=== PATIENT | female | born 1965 | race Caucasian/White ===

== ENCOUNTER 2020-08-20 14:24 | Outpatient (CLI) | payer MEDICAID, SELFPAY | END 2020-08-20 14:25 | disposition home or self-care (01) | PROVIDERS: Family Provider Nurse Practitioner Family; Visit Provider Nurse Practitioner Family | DX: E11.622 Type 2 diabetes mellitus with other skin ulcer (principal); L97.812 Non-pressure chronic ulcer of other part of right lower leg with fat layer exposed; L97.822 Non-pressure chronic ulcer of other part of left lower leg with fat layer exposed | CPT/HCPCS: 11042; 87070; 87077; 87176; 87186; 87205 ==

== ENCOUNTER 2020-08-27 09:53 | Outpatient (CLI) | payer MEDICAID, SELFPAY | END 2020-08-27 09:54 | disposition home or self-care (01) | LOC: WOUND 09:53 | PROVIDERS: Visit Provider Nurse Practitioner Family | DX: E11.622 Type 2 diabetes mellitus with other skin ulcer (principal); L97.812 Non-pressure chronic ulcer of other part of right lower leg with fat layer exposed; L97.822 Non-pressure chronic ulcer of other part of left lower leg with fat layer exposed | CPT/HCPCS: 11042 ==

== ENCOUNTER 2020-09-03 09:25 | Outpatient (CLI) | payer MEDICAID, SELFPAY | END 2020-09-03 09:26 | disposition home or self-care (01) | LOC: WOUND 09:25 | PROVIDERS: Visit Provider Nurse Practitioner Family | DX: E11.622 Type 2 diabetes mellitus with other skin ulcer (principal); L97.812 Non-pressure chronic ulcer of other part of right lower leg with fat layer exposed; L97.822 Non-pressure chronic ulcer of other part of left lower leg with fat layer exposed | CPT/HCPCS: 11042 ==

== ENCOUNTER 2020-09-10 09:21 | Outpatient (CLI) | payer MEDICAID, SELFPAY | END 2020-09-10 09:22 | disposition home or self-care (01) | LOC: WOUND 09:22 | PROVIDERS: Visit Provider Nurse Practitioner Family | DX: E11.622 Type 2 diabetes mellitus with other skin ulcer (principal); L97.812 Non-pressure chronic ulcer of other part of right lower leg with fat layer exposed; L97.822 Non-pressure chronic ulcer of other part of left lower leg with fat layer exposed | CPT/HCPCS: 11042 ==

== ENCOUNTER 2020-09-10 10:32 | Outpatient (CLI) | payer MEDICAID, SELFPAY ==
--- NOTE | 2020-09-10 10:36 | USCV_ITS ---
Evangelina Velázquez Age: 54 Gender: F : 1965 Exam Date: 09/10/2020 10:58 Ordering Phys: Anu Richmond Technologist: Mello Garcia [place]am [place] [facility] [place]: HISTORY: Ulcers. PROCEDURES: Bilateral duplex Venous Insufficiency study of the Deep and Superficial systems was carried out according to normal protocol with the patient in supine positon for deep system and dependent position for the superficial system. FINDINGS: All deep veins demonstrated compressibility without evidence of intraluminal thrombus or increased echogenicity. Spectral analysis of Doppler signals demonstrates normal response to compression maneuvers indicating patency without obstruction. Reflux determinations were made with the patient in the dependent position, the weight being on the contralateral leg. Vein measurements and reflux times are listed below were applicable. SIGNIFICANT REFLUX IN BOTH LEGS. THIS PT IS NOT A GOOD CANADATE FOR ABLATION DOTO TOUCHOUS GSAPH VEINS CONCLUSIONS 1. On the right side significant venous reflux of greater than 500 ms were noted throughout the greater saphenous vein segments including the saphenofemoral junction . These venous segments were measuring anywhere from 0.39 to 1.01 cm in diameter and greater than 1 cm deep from the surface. However they were found to be very tortuous 2. On the left side significant venous reflux of greater than 500 ms were noted at the saphenofemoral junction, proximal and below-knee greater saphenous vein segments. These venous segments where measuring anywhere from 0.42 to 0.55 cm in diameter and greater than 1 cm of deep from the surface. Vein segments were found to be very tortuous. 3. No evidence of deep vein thrombosis. Because of the tortuosity the venous segments may not be ideal for ablation Dr Colette Garcia MD [facility] (Electronically Signed) Final Date: 11 September 2020 08:54 S
== END 2020-09-10 10:33 | disposition home or self-care (01) ==
LOC: US 10:33
PROVIDERS: PCP Family Medicine; Visit Provider Nurse Practitioner Family
DX: M79.604 Pain in right leg (principal); M79.605 Pain in left leg; L53.9 Erythematous condition, unspecified; L97.929 Non-pressure chronic ulcer of unspecified part of left lower leg with unspecified severity; L97.919 Non-pressure chronic ulcer of unspecified part of right lower leg with unspecified severity
CPT/HCPCS: 93970

== ENCOUNTER 2020-09-12 14:09 | Outpatient (CLI) | payer MEDICAID, SELFPAY ==
--- NOTE | 2020-09-12 14:11 | USCV_ITS ---
Evangelina Velázquez Age: 54 Gender: F : 1965 Exam Date: 09/12/2020 14:01 Ordering Phys: Anu Richmond Technologist: Karsten Pabon [place] [facility] [place]: PAIN REDNESS NON HEALING ULCER RIGHT LEFT Brachial 159.00 mmHg Brachial 180.00 mmHg Pressure (mmHg) Waveform Pressure (mmHg) Waveform 73.00 Pre-Exercise Toe Pressure 93.00 0.41 Pre-Exercise Toe/Brachial Index 0.52 FINDINGS Noncompressible arteries bilaterally at the angle Abnormal resting SEGUN bilaterally PVR waveforms showing blunting of the dicrotic notch PVR waveforms at the ankle is a suboptimal quality CONCLUSIONS 1. Features suggestive of mild to moderate peripheral artery disease bilaterally. 2. Noncompressible vessels, suggestive of extensive arterial sclerosis Dr Colette Garcia MD [facility] (Electronically Signed) Final Date: 12 September 2020 21:20 S
== END 2020-09-12 14:10 | disposition home or self-care (01) ==
LOC: US 14:09
PROVIDERS: PCP Family Medicine; Visit Provider Nurse Practitioner Family
DX: M79.604 Pain in right leg (principal); M79.605 Pain in left leg; L53.9 Erythematous condition, unspecified; L97.829 Non-pressure chronic ulcer of other part of left lower leg with unspecified severity; L97.819 Non-pressure chronic ulcer of other part of right lower leg with unspecified severity
CPT/HCPCS: 93923

== ENCOUNTER 2020-09-17 09:08 | Outpatient (CLI) | payer MEDICAID, SELFPAY | END 2020-09-17 09:09 | disposition home or self-care (01) | LOC: WOUND 09:08 | PROVIDERS: PCP Family Medicine; Visit Provider Nurse Practitioner Family | DX: E11.622 Type 2 diabetes mellitus with other skin ulcer (principal); L97.812 Non-pressure chronic ulcer of other part of right lower leg with fat layer exposed; L97.822 Non-pressure chronic ulcer of other part of left lower leg with fat layer exposed | CPT/HCPCS: 11042 ==

== ENCOUNTER 2020-09-20 14:11 | Outpatient (CLI) | payer MEDICAID, SELFPAY | END 2020-09-20 14:12 | disposition home or self-care (01) | LOC: WOUND 14:12 | PROVIDERS: PCP Family Medicine; Visit Provider Thoracic Surgery (Cardiothoracic Vascular Surgery) | DX: E11.622 Type 2 diabetes mellitus with other skin ulcer (principal); L97.812 Non-pressure chronic ulcer of other part of right lower leg with fat layer exposed; L97.822 Non-pressure chronic ulcer of other part of left lower leg with fat layer exposed | CPT/HCPCS: 29581 ==

== ENCOUNTER 2020-09-24 09:21 | Outpatient (CLI) | payer MEDICAID, SELFPAY | END 2020-09-24 09:22 | disposition home or self-care (01) | LOC: WOUND 09:21 | PROVIDERS: PCP Family Medicine; Visit Provider Nurse Practitioner Family | DX: E11.622 Type 2 diabetes mellitus with other skin ulcer (principal); L97.812 Non-pressure chronic ulcer of other part of right lower leg with fat layer exposed; L97.822 Non-pressure chronic ulcer of other part of left lower leg with fat layer exposed | CPT/HCPCS: 11042 ==

== ENCOUNTER 2020-10-01 08:54 | Outpatient (CLI) | payer MEDICAID, SELFPAY | END 2020-10-01 08:55 | disposition home or self-care (01) | LOC: WOUND 08:54 | PROVIDERS: PCP Family Medicine; Visit Provider Nurse Practitioner Family | DX: E11.622 Type 2 diabetes mellitus with other skin ulcer (principal); L97.812 Non-pressure chronic ulcer of other part of right lower leg with fat layer exposed; L97.822 Non-pressure chronic ulcer of other part of left lower leg with fat layer exposed | CPT/HCPCS: 11042 ==

== ENCOUNTER 2020-10-08 09:19 | Outpatient (CLI) | payer MEDICAID, SELFPAY | END 2020-10-08 09:20 | disposition home or self-care (01) | LOC: WOUND 09:21 | PROVIDERS: PCP Family Medicine; Visit Provider Nurse Practitioner Family | DX: E11.622 Type 2 diabetes mellitus with other skin ulcer (principal); L97.812 Non-pressure chronic ulcer of other part of right lower leg with fat layer exposed; L97.821 Non-pressure chronic ulcer of other part of left lower leg limited to breakdown of skin | CPT/HCPCS: 11042 ==

== ENCOUNTER 2020-10-15 08:32 | Outpatient (CLI) | payer MEDICAID, SELFPAY | END 2020-10-15 08:33 | disposition home or self-care (01) | LOC: WOUND 08:33 | PROVIDERS: PCP Family Medicine; Visit Provider Nurse Practitioner Family | DX: E11.622 Type 2 diabetes mellitus with other skin ulcer (principal); L97.812 Non-pressure chronic ulcer of other part of right lower leg with fat layer exposed; L97.821 Non-pressure chronic ulcer of other part of left lower leg limited to breakdown of skin | CPT/HCPCS: 11042 ==

== ENCOUNTER 2020-10-22 09:03 | Outpatient (CLI) | payer MEDICAID, SELFPAY | END 2020-10-22 09:04 | disposition home or self-care (01) | LOC: WOUND 09:03 | PROVIDERS: PCP Family Medicine; Visit Provider Nurse Practitioner Family | DX: E11.622 Type 2 diabetes mellitus with other skin ulcer (principal); L97.812 Non-pressure chronic ulcer of other part of right lower leg with fat layer exposed; L97.821 Non-pressure chronic ulcer of other part of left lower leg limited to breakdown of skin | CPT/HCPCS: 11042 ==

== ENCOUNTER 2020-10-29 09:16 | Outpatient (CLI) | payer MEDICAID, SELFPAY | END 2020-10-29 09:17 | disposition home or self-care (01) | LOC: WOUND 09:17 | PROVIDERS: PCP Family Medicine; Visit Provider Nurse Practitioner Family | DX: E11.622 Type 2 diabetes mellitus with other skin ulcer (principal); L97.812 Non-pressure chronic ulcer of other part of right lower leg with fat layer exposed | CPT/HCPCS: 11042 ==

== ENCOUNTER 2020-11-05 09:12 | Outpatient (CLI) | payer MEDICAID, SELFPAY | END 2020-11-05 09:13 | disposition home or self-care (01) | LOC: WOUND 09:12 | PROVIDERS: PCP Family Medicine; Visit Provider Nurse Practitioner Family | DX: E11.622 Type 2 diabetes mellitus with other skin ulcer (principal); L97.812 Non-pressure chronic ulcer of other part of right lower leg with fat layer exposed | CPT/HCPCS: 11042 ==

== ENCOUNTER 2020-11-12 09:49 | Outpatient (CLI) | payer MEDICAID, SELFPAY | END 2020-11-12 09:50 | disposition home or self-care (01) | LOC: WOUND 09:49 | PROVIDERS: PCP Family Medicine; Visit Provider Nurse Practitioner Family | DX: E11.622 Type 2 diabetes mellitus with other skin ulcer (principal); L97.811 Non-pressure chronic ulcer of other part of right lower leg limited to breakdown of skin; L97.821 Non-pressure chronic ulcer of other part of left lower leg limited to breakdown of skin | CPT/HCPCS: 11042 ==

== ENCOUNTER 2020-11-19 09:14 | Outpatient (CLI) | payer MEDICAID, SELFPAY | END 2020-11-19 09:15 | disposition home or self-care (01) | LOC: WOUND 09:15 | PROVIDERS: PCP Family Medicine; Visit Provider Nurse Practitioner Family | DX: E11.622 Type 2 diabetes mellitus with other skin ulcer (principal); L97.812 Non-pressure chronic ulcer of other part of right lower leg with fat layer exposed; L97.822 Non-pressure chronic ulcer of other part of left lower leg with fat layer exposed | CPT/HCPCS: 11042 ==

== ENCOUNTER 2020-11-26 09:34 | Outpatient (CLI) | payer MEDICAID, SELFPAY | END 2020-11-26 09:35 | disposition home or self-care (01) | LOC: WOUND 09:35 | PROVIDERS: PCP Family Medicine; Visit Provider Nurse Practitioner Family | DX: E11.622 Type 2 diabetes mellitus with other skin ulcer (principal); L97.812 Non-pressure chronic ulcer of other part of right lower leg with fat layer exposed; L97.822 Non-pressure chronic ulcer of other part of left lower leg with fat layer exposed | CPT/HCPCS: 11042 ==

== ENCOUNTER 2020-12-03 09:24 | Outpatient (CLI) | payer MEDICAID, SELFPAY | END 2020-12-03 09:25 | disposition home or self-care (01) | LOC: WOUND 09:25 | PROVIDERS: Visit Provider Nurse Practitioner Family | DX: E11.622 Type 2 diabetes mellitus with other skin ulcer (principal); L97.812 Non-pressure chronic ulcer of other part of right lower leg with fat layer exposed; L97.822 Non-pressure chronic ulcer of other part of left lower leg with fat layer exposed | CPT/HCPCS: 11042 ==

== ENCOUNTER 2020-12-05 13:08 | Outpatient (CLI) | payer MEDICAID, SELFPAY | END 2020-12-05 13:09 | disposition home or self-care (01) | LOC: WOUND 13:09 | PROVIDERS: PCP Family Medicine; Visit Provider Thoracic Surgery (Cardiothoracic Vascular Surgery) | DX: E11.622 Type 2 diabetes mellitus with other skin ulcer (principal); I87.2 Venous insufficiency (chronic) (peripheral); L97.812 Non-pressure chronic ulcer of other part of right lower leg with fat layer exposed; L97.822 Non-pressure chronic ulcer of other part of left lower leg with fat layer exposed | CPT/HCPCS: 29581 ==

== ENCOUNTER 2020-12-10 09:33 | Outpatient (CLI) | payer MEDICAID, SELFPAY | END 2020-12-10 09:34 | disposition home or self-care (01) | LOC: WOUND 09:34 | PROVIDERS: PCP Family Medicine; Visit Provider Nurse Practitioner Family | DX: E11.622 Type 2 diabetes mellitus with other skin ulcer (principal); L97.812 Non-pressure chronic ulcer of other part of right lower leg with fat layer exposed; L97.822 Non-pressure chronic ulcer of other part of left lower leg with fat layer exposed | CPT/HCPCS: 11042; 15275; Q4186 ==

== ENCOUNTER 2020-12-17 08:52 | Outpatient (CLI) | payer MEDICAID, SELFPAY | END 2020-12-17 08:53 | disposition home or self-care (01) | LOC: WOUND 08:53 | PROVIDERS: PCP Family Medicine; Visit Provider Nurse Practitioner Family | DX: E11.622 Type 2 diabetes mellitus with other skin ulcer (principal); L97.812 Non-pressure chronic ulcer of other part of right lower leg with fat layer exposed; L97.822 Non-pressure chronic ulcer of other part of left lower leg with fat layer exposed | CPT/HCPCS: 11042; 15275; Q4186 ==

== ENCOUNTER 2020-12-24 09:15 | Outpatient (CLI) | payer MEDICAID, SELFPAY | END 2020-12-24 09:16 | disposition home or self-care (01) | LOC: WOUND 09:15 | PROVIDERS: PCP Family Medicine; Visit Provider Nurse Practitioner Family | DX: E11.622 Type 2 diabetes mellitus with other skin ulcer (principal); L97.812 Non-pressure chronic ulcer of other part of right lower leg with fat layer exposed; L97.822 Non-pressure chronic ulcer of other part of left lower leg with fat layer exposed | CPT/HCPCS: 11042 ==

== ENCOUNTER 2020-12-31 09:01 | Outpatient (CLI) | payer MEDICAID, SELFPAY | END 2020-12-31 09:02 | disposition home or self-care (01) | LOC: WOUND 09:01 | PROVIDERS: PCP Family Medicine; Visit Provider Nurse Practitioner Family | DX: E11.622 Type 2 diabetes mellitus with other skin ulcer (principal); L97.812 Non-pressure chronic ulcer of other part of right lower leg with fat layer exposed; L97.822 Non-pressure chronic ulcer of other part of left lower leg with fat layer exposed | CPT/HCPCS: 11042; 15271; Q4186 ==

== ENCOUNTER 2021-01-21 09:05 | Outpatient (CLI) | payer MEDICAID, SELFPAY | END 2021-01-21 09:06 | disposition home or self-care (01) | LOC: WOUND 09:07 | PROVIDERS: PCP Family Medicine; Visit Provider Nurse Practitioner Family | DX: E11.622 Type 2 diabetes mellitus with other skin ulcer (principal); L97.812 Non-pressure chronic ulcer of other part of right lower leg with fat layer exposed; L97.822 Non-pressure chronic ulcer of other part of left lower leg with fat layer exposed | CPT/HCPCS: 11042 ==

== ENCOUNTER 2021-01-28 08:20 | Outpatient (CLI) | payer MEDICAID, SELFPAY | END 2021-01-28 08:21 | disposition home or self-care (01) | LOC: WOUND 08:20 | PROVIDERS: PCP Family Medicine; Visit Provider Nurse Practitioner Family | DX: E11.622 Type 2 diabetes mellitus with other skin ulcer (principal); L97.812 Non-pressure chronic ulcer of other part of right lower leg with fat layer exposed; L97.822 Non-pressure chronic ulcer of other part of left lower leg with fat layer exposed | CPT/HCPCS: 11042 ==

== ENCOUNTER 2021-02-04 08:36 | Outpatient (CLI) | payer MEDICAID, SELFPAY | END 2021-02-04 08:37 | disposition home or self-care (01) | LOC: WOUND 08:37 | PROVIDERS: PCP Family Medicine; Visit Provider Nurse Practitioner Family | DX: E11.622 Type 2 diabetes mellitus with other skin ulcer (principal); L97.812 Non-pressure chronic ulcer of other part of right lower leg with fat layer exposed; L97.822 Non-pressure chronic ulcer of other part of left lower leg with fat layer exposed | CPT/HCPCS: 11042 ==

== ENCOUNTER 2021-02-07 08:05 | Outpatient (CLI) | payer MEDICAID, SELFPAY | END 2021-02-07 08:06 | disposition home or self-care (01) | LOC: WOUND 08:06 | PROVIDERS: PCP Family Medicine; Visit Provider Nurse Practitioner Family | DX: E11.622 Type 2 diabetes mellitus with other skin ulcer (principal); L97.812 Non-pressure chronic ulcer of other part of right lower leg with fat layer exposed; L97.822 Non-pressure chronic ulcer of other part of left lower leg with fat layer exposed | CPT/HCPCS: 29581 ==

== ENCOUNTER 2021-02-11 08:22 | Outpatient (CLI) | payer MEDICAID, SELFPAY | END 2021-02-11 08:23 | disposition home or self-care (01) | LOC: WOUND 08:23 | PROVIDERS: PCP Family Medicine; Visit Provider Nurse Practitioner Family | DX: E11.622 Type 2 diabetes mellitus with other skin ulcer (principal); L97.812 Non-pressure chronic ulcer of other part of right lower leg with fat layer exposed; L97.822 Non-pressure chronic ulcer of other part of left lower leg with fat layer exposed | CPT/HCPCS: 97597 ==

== ENCOUNTER → 2021-02-14 10:51 | Outpatient (BNVA) | payer MEDICAID, SELFPAY | PROVIDERS: PCP Family Medicine; Visit Provider Internal Medicine Cardiovascular Disease | DX: I77.9 Disorder of arteries and arterioles, unspecified (principal); Z20.822 Contact with and (suspected) exposure to COVID-19 | CPT/HCPCS: 80048; 85025; 85610; 87635 ==

== ENCOUNTER 2021-02-18 08:47 | Outpatient (CLI) | payer MEDICAID, SELFPAY | END 2021-02-18 08:48 | disposition home or self-care (01) | LOC: WOUND 08:52 | PROVIDERS: PCP Family Medicine; Visit Provider Nurse Practitioner Family | DX: E11.622 Type 2 diabetes mellitus with other skin ulcer (principal); L97.812 Non-pressure chronic ulcer of other part of right lower leg with fat layer exposed; L97.822 Non-pressure chronic ulcer of other part of left lower leg with fat layer exposed ==

== ENCOUNTER 2021-02-18 08:58 | Outpatient (CLI) | payer MEDICAID, SELFPAY | END 2021-02-18 08:59 | disposition home or self-care (01) | LOC: WOUND 08:59 | PROVIDERS: PCP Family Medicine; Visit Provider Nurse Practitioner Family | DX: E11.622 Type 2 diabetes mellitus with other skin ulcer (principal); L97.812 Non-pressure chronic ulcer of other part of right lower leg with fat layer exposed; L97.822 Non-pressure chronic ulcer of other part of left lower leg with fat layer exposed | CPT/HCPCS: 11042 ==

== ENCOUNTER 2021-02-19 09:21 | Observation (INO) | payer MEDICAID, SELFPAY ==
[2021-02-19] VITALS (13 sets, daily range): BP systolic 117–154; BP diastolic 57–114; PULSE 69–90; RESP 10–18; TEMP 36.6; O2SAT 86–100; BMI 70.4
--- NOTE | 2021-02-19 06:00 | XACV_ITS ---
Wt: 175 kg BSA: 2.90 m2 Any Known Allergies: Other Gender: Female : 1965 Exam Type: Invasive Peripheral Vascular Procedure(s): Procedure Description: Peripheral Cath Diagnostic Procedure Exam Priority: Routine Conclusions Indication for peripheral angiogram: Lifestyle limiting claudicationAbdominal aortic angiogram: NormalRight renal artery: NormalLeft renal artery not well visualized due to insufficient injectionRight and left common iliac vessels: NormalRight and left external and internal iliac vessels: NormalRight and left common femoral artery: NormalRight and left profundofemoral artery: Normal Right and left SFA: Normal Right and left popliteal artries: NormalRight and left tibioperoneal trunk: NormalRight and left anterior tibial vessel no significant stenosis except distal anterior tibial and the right foot while making the arch vessel has eccentric lesion which is moderate but since it has a dual supply it may not affect much therefore left aloneRight and left posterior tibial arteries normalRight and left peroneal arteries luminal irregularities . Recommendations Continue current medical management and risk factor modification. Follow up with PCP as directed. Hemodynamic Data Phase:Rest AO : 175.0 / 73.0 ( 112.0 ) @ 2:48:00 AM Access Site Site: Left Femoral artery Sheath Size: 6 Fr Hemost... Method: Manual Compression Hemost... Success: Successful Procedure Details Findings Procedure Consent Obtained. Pre-Procedure Time Out. Identified patient by full name and date of as verbalized by the patient/guarantor. Does the consent match the physician's order: Yes. Accurate & Complete Informed Consent: Yes. Inpatient/Outpatient History & Physical on Chart: Yes. If H&P is completed, is and addenduem needed: No; If yes, is the addendum complete: N/A. Visualize and Verify Site with Patient/Guarantor: N/A. Relevant Radiology Images available: N/A. Pre-op teaching completed and patient verbalized understanding. The risks, benefits, and alternatives of sedation and/or procedure were discussed by physician. The patient agrees to continue. Procedure started. Correct patient, site and procedure confirmed by cath team. PERRLA. Strong, equal hand lathe spotter bilaterally. Lungs clear x 5 lobes. Lower extremities have wraps from wound clinic. Bandages were left intact. Unable to assess pulses. IV Site on Arrival: 20 gauge in the right anticubital. Oxygen started at 2liters/min via nasal canula. Pre Procedural Pulses: bilateral radial was 3+. bilateral groins was prepped with chloroprep then draped in the usual sterile fashion. Baseline sample Acquired. HR: 71 BPM. Equipment: Peripheral. Cardiac Cath Pack. ACIST Manifold Kit Model BT 2000. Heparinized Saline (2 units/mL), 1000 mL bag. Physician arrived. Physician scrubbed in. Time out performed with cath team. Lidocaine 1% infiltrated to the left groin. Arterial access obtained with micropuncture set. Inventory is JJ 6F 11cm Teri Plus Sheath. A Eggs OvernightIS 5F UF catheter 65cm was advanced over the wire and used for Lower extremity arteriography. Abdominal aortogram performed in AP @ 10 mL/sec for a total of 30 mL. UF catheter removed over the glidewire. A JJ 5F RIM 65 cm Diagnostic Catheter was advanced over the wire and used for Lower extremity arteriography. Glidewire advanced down the right SFA. RIM advanced the the right exertnal Iliac artery. Glidewire removed. Right external iliac selected and arteriogram with runoff performed @ 10 mL/sec for a total of 30 mL. Right external iliac selected digital subtraction arteriogram with runoff performed @ 10 mL/sec for a total of 30 mL. Right external iliac selected and Digital subtraction arteriogram with runoff performed @ 10 mL/sec for a total of 30 mL. Catheter removed over the glidewire. Left common femoral selected and arteriogram performed at 10 ml/sec for a total of 30 ml. Physican review of film. Physician scrubbed out. A Manual Compression was successful obtaining hemostatsis at the Left Femoral artery insertion site. Post Procedure: Pulses reassessed and unchanged. PERRLA. Strong, equal hand lathe spotter bilaterally. No VTE prophylaxis required. Medication's Wasted: Heparin = 4000 units. Total IV fluids: 75 mL. Fluoro: 3:06. Contrast type used: Omnipaque 300 mgI/mL, 500 mL bottle. [id number]. Post-op diagnosis: Normal Arteries. Complications: none. Estimated blood loss: 5mL-10mL. Sheath(s) removed and manual pressure held until hemostasis was achieved. Sterile 4x4 and Op-site applied to the puncture site. No oozing or hematoma noted. Post sheath removal instructions were given and the patient verbalized understanding. Procedure completed. Patient transferred by bed to ICU. Vital chart was stopped. Procedure Medications Start: 7:18 AM Stop: 7:18 AM Medication: Versed Amount: 1 mg Route: I.V. Start: 7:18 AM Stop: 7:18 AM Medication: Fentanyl Amount: 25 mcg Route: I.V. Start: 7:27 AM Stop: 7:27 AM Medication: Versed Amount: 1 mg Route: I.V. Start: 7:27 AM Stop: 7:27 AM Medication: Fentanyl Amount: 25 mcg Route: I.V. Start: 7:34 AM Stop: 7:34 AM Medication: Versed Amount: 1 mg Route: I.V. Start: 7:34 AM Stop: 7:34 AM Medication: Fentanyl Amount: 25 mcg Route: I.V. Start: 7:48 AM Stop: 7:48 AM Medication: Versed Amount: 1 mg Route: I.V. Start: 7:48 AM Stop: 7:48 AM Medication: Fentanyl Amount: 25 mcg Route: I.V. I, the attending physician, have reviewed and verified all procedure medications. Yes, all medications given per verbal order History/Risk Factors Hypertension: Yes Dyslipidemia: No Peripheral Arterial Disease (PAD): Yes Obesity: Yes Renal Disease: No Prior Interventions PCI: No CABG: No Valve Surgery: No Report Signatures Finalized by Rivka Morales MD on 03/02/2021 02:47 PM
--- NOTE | 2021-02-19 07:00 | PC.NURSE ---
pulses bilateral radial pulses 3. dp and pt pulses not assessed due to fresh woundcare bilaterally wraped legs from mid calf down.
[2021-02-19] MEDS: diphenhydrAMINE 50 mg Capsule PO (07:03)
--- NOTE | 2021-02-19 07:09 | P.HP_ITS ---
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 It is the reason patient is here for peripheral angiogram. Her ulcers appear to be more venous. She is morbidly obese SEGUN could be misleading however symptoms of claudication upon walking may require further exploration with peripheral angiogram. I have explained all risk benefit and alternative for the procedure. Patient understand the risk for major minor bleed, hematoma, infection, urgent emergent surgery, contrast-induced nephropathy, transient permanent renal failure. She does not wish to use drug-coated balloon when she was explained FDA warning about the drug-coated balloon. She wishes to proceed with the rest of procedure. Medications/Allergies* Home Medications Medication Instructions Recorded Confirmed Type acetaminophen 300 mg-codeine 30 mg 1 tab PO Q8H PRN 12/04/20 02/18/21 History tablet acetazolamide 250 mg tablet 250 mg PO .every other day tab 12/04/20 02/18/21 History albuterol sulfate 90 mcg/actuation 2 puff INHALATION Q6H PRN 12/04/20 02/18/21 History aerosol inhaler cetirizine 10 mg tablet 10 mg PO DAILY 12/04/20 02/18/21 History fluticasone 250 mcg-salmeterol 50 1 inh INHALATION BID 12/04/20 02/18/21 History mcg/dose blistr powdr for inhalation insulin glargine 100 unit/mL (3 80 unit SUBCUT QAM ml 12/04/20 02/18/21 History mL) subcutaneous pen insulin lispro 100 unit/mL 27 unit SUBCUT TID ml 12/04/20 02/18/21 History subcutaneous pen linezolid 600 mg tablet 600 mg PO BID 12/04/20 02/18/21 History lisinopril 20 mg tablet 20 mg PO DAILY 12/04/20 02/18/21 History meloxicam 7.5 mg tablet 7.5 mg PO BID PRN tab 12/04/20 02/18/21 History montelukast 10 mg tablet 10 mg PO DAILY 12/04/20 02/18/21 History omeprazole 20 mg capsule,delayed 20 mg PO BID 12/04/20 02/18/21 History release pentoxifylline 400 mg 400 mg PO DAILY tab 12/04/20 02/18/21 History tablet,extended release vitamin with calcium 1 tab PO DAILY 12/04/20 02/18/21 History no.72-iron 27 mg-folic acid 1 mg tablet aspirin 81 mg PO BID 02/19/21 02/19/21 History Allergies/Adverse Reactions Allergy/AdvReac Type Severity Reaction Status Date / Time diphth,pert(acell),tetan,polio Allergy Unknown Unknown Verified 12/04/20 08:44 vacc,component 1of2 [From Pentacel DTaP-IPV Compnt (PF)] Penicillins Allergy Unknown Unknown Verified 12/04/20 08:44 Current Medications: Generic Name Dose Route Start Last Admin Trade Name Freq PRN Reason Stop Dose Admin Sodium Chloride 1,000 mls @ 50 mls/hr 02/19/21 06:00 02/19/21 07:03 Sodium Chloride 0.9% IV 02/20/21 01:59 Not Given .Q20H ONE Pertinent History/Comorbid Conditions* Medical History (Updated 12/08/20 @ 16:00 by Rivka Morales MD) HTN (hypertension) Peripheral arterial occlusive disease Venous insufficiency (chronic) (peripheral) Family History (Updated 12/04/20 @ 08:45 by Brie Kern LPN) Diabetes Father Heart disease Father Chronic kidney disease (CKD) Seizures Hypertension Stroke Father Social History Smoking and tobacco status: current every day smoker cigarettes Packs smoked per day: 10 Years cigarettes smoked: 15 Pertinent Exam Findings alert, oriented x 3 and clear to auscultation bilaterally Conscious Sedation Assessment PATIENT ASSESSED PRIOR TO SEDATION, WITH NO CHANGE NOTED: Yes AIRWAY EVAL/ANESTHESIA PLAN: ASA III, Risks, benefits & alternatives of sedation and/or procedure discussed and Patient agrees to continue as planned Recommendations Surgery/Procedure today Coding Level of Care Code 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
[2021-02-19 07:16] LABS: Basophils # 0.1 10^3/uL (0.0-0.1); Basophils % 1.3 %; Eosinophils # 0.2 10^3/uL (0.0-0.8); Hematocrit 48.5 % (37.0-47.0); Hemoglobin 14.8 g/dL (11.5-15.3); Lymphocytes # 2.3 10^3/uL (0.8-4.8); Lymphocytes % 21.5 %; Mean Corpuscular HGB Conc 30.5 g/dL (30.0-36.0); Mean Corpuscular Hemoglobin 27.3 pg (28.0-34.0); Mean Corpuscular Volume 89.5 fL (81-99); Mean Platelet Volume 10.2 fL (7.4-10.4); Monocytes # 0.7 10^3/uL (0.2-0.9); Monocytes % 6.6 %; Neutrophils # 7.24 10^3/uL (1.8-7.7); Neutrophils % 67.6 %; Nucleated Red Blood Cells % 0 %; Platelet Count 243 10^3/cmm (130-400); Red Blood Count 5.42 10^6/uL (4.1-5.3); Red Cell Distribution Width 15.9 % (12.1-15.1); White Blood Count 10.7 10^3/uL (4.0-10.0)
[2021-02-19] MEDS: cetirizine 10 mg Tablet PO (10:06)
[2021-02-19] MEDS: montelukast sodium 10 mg Tablet PO (10:06)
[2021-02-19] MEDS: linezolid 600 mg Tablet PO (10:06)
[2021-02-19] MEDS: pantoprazole DR 40 mg Tablet PO (10:06)
[2021-02-19] MEDS: sodium chloride 0.9% 1,000 ML 75 ML IV (10:07)
[2021-02-19 10:12] LABS: Glucose Point of Care 157 mg/dL (70-110)
[2021-02-19] MEDS: insulin glargine 100 units/1 mL 80 UNIT SUBCUT (11:38)
[2021-02-19] MEDS: acetaZOLAMIDE 250 mg Tablet PO (11:38)
[2021-02-19 11:45] LABS: Glucose Point of Care 134 mg/dL (70-110)
--- NOTE | 2021-02-19 12:09 | PC.CHAP ---
Pastoral Care Encounter/Spiritual Assessment Type of Contact [] Declined housing manager visit [] Patient/Family/Request visit [] Outpatient visit [] Follow-up visit [] Physician referral [] Code/Alert [x] Routine visit [] Staff referral [] Actively dying [] Patient sleeping [] Family support [] [] Out of room [] Palliative care [] [] Receiving care in room [] Pre-surgical visit [] Trauma [] Long length of stay [x] ICU visit [] Other: Relational/Emotional Strength [] Patient feels connected with others/family/visitors/staff [] Distress [] Loneliness/isolation [] Abandonment Spirituality of Patient [] Person of Ping [] Attends Catholic of their Ping [] Believes in Prayer [] Reads Bible or Yazidism materials [] There are Spiritual issues to be addressed Manager Decision Support Interventions [x] Prayer [] Active listening [] Non-anxious presence [] Spiritual/emotional support [] Crisis/trauma care [] Spiritual counseling [] Bereavement support [] Provided bereavement packet [] Provided Bible/devotional materials [] Provided toy/stuffed animal, coloring book to patient or family member [] Provided Communion [] Anointing/[place] [] Salvation [x] Completed spiritual assessment [] Other: Impact on Illness or Injury [] Angry [] Fearful [] Anxious [] Often cries [] Exhaustion [] Unable to work [] Unable to attend voodoo [] Unable to walk/stand [] Unable to read [] Unable to drive [] Unable to eat/drink [] Unable to sleep [] Unable to be with family [] Patient intubated [] Other: Summary Time spent with patient
--- NOTE | 2021-02-19 15:08 | PC.NURSE ---
Mr Eber notified via telephone that will be discharged this afternoon.
--- NOTE | 2021-02-19 16:25 | PC.NURSE ---
Discharge instructions provided and discussed. Follow-up appt in [place], [place] with Dr Morales. Pt declined to discuss care notes on meal planning with diabetic exchanges and peripheral vascular angiogram, she stated she knew about that already. Pt to front exit via W/C.
--- NOTE | 2021-02-20 17:05 | PC.RESP ---
Smoking Cessation information sent to patient.
== END 2021-02-19 16:25 | disposition home or self-care (01) ==
LOC: ICU 09:28
PROVIDERS: Admitting Provider Internal Medicine Cardiovascular Disease; PCP Family Medicine; Visit Provider Internal Medicine Cardiovascular Disease
DX: I73.9 Peripheral vascular disease, unspecified (principal); E66.01 Morbid (severe) obesity due to excess calories; Z68.45 Body mass index [BMI] 70 or greater, adult; I10 Essential (primary) hypertension; E11.9 Type 2 diabetes mellitus without complications; Z86.14 Personal history of Methicillin resistant Staphylococcus aureus infection; Z82.49 Family history of ischemic heart disease and other diseases of the circulatory system; Z83.3 Family history of diabetes mellitus
CPT/HCPCS: 36415; 36416; 75625; 75716; 82962; 85025; 96372; C1769; C1887; C1894; G0378; J1644; J1815; J2250; J3010; J7030; Q0163; Q9967

== ENCOUNTER 2021-02-25 09:00 | Outpatient (CLI) | payer MEDICAID, SELFPAY | END 2021-02-25 09:01 | disposition home or self-care (01) | LOC: WOUND 09:03 | PROVIDERS: PCP Family Medicine; Visit Provider Nurse Practitioner Family | DX: E11.622 Type 2 diabetes mellitus with other skin ulcer (principal); L97.812 Non-pressure chronic ulcer of other part of right lower leg with fat layer exposed; L97.822 Non-pressure chronic ulcer of other part of left lower leg with fat layer exposed | CPT/HCPCS: 11042 ==

== ENCOUNTER 2021-03-04 08:32 | Outpatient (CLI) | payer MEDICAID, SELFPAY | END 2021-03-04 08:33 | disposition home or self-care (01) | LOC: WOUND 08:33 | PROVIDERS: PCP Family Medicine; Visit Provider Nurse Practitioner Family | DX: E11.622 Type 2 diabetes mellitus with other skin ulcer (principal); L97.812 Non-pressure chronic ulcer of other part of right lower leg with fat layer exposed; L97.822 Non-pressure chronic ulcer of other part of left lower leg with fat layer exposed | CPT/HCPCS: 11042 ==

== ENCOUNTER 2021-03-14 08:32 | Outpatient (CLI) | payer MEDICAID, SELFPAY | END 2021-03-14 08:33 | disposition home or self-care (01) | LOC: WOUND 08:33 | PROVIDERS: PCP Family Medicine; Visit Provider Nurse Practitioner Family | DX: E11.622 Type 2 diabetes mellitus with other skin ulcer (principal); L97.812 Non-pressure chronic ulcer of other part of right lower leg with fat layer exposed; L97.822 Non-pressure chronic ulcer of other part of left lower leg with fat layer exposed | CPT/HCPCS: 11042 ==

== ENCOUNTER 2021-03-18 08:13 | Outpatient (CLI) | payer MEDICAID, SELFPAY | END 2021-03-18 08:14 | disposition home or self-care (01) | LOC: WOUND 08:14 | PROVIDERS: PCP Family Medicine; Visit Provider Nurse Practitioner Family | DX: E11.622 Type 2 diabetes mellitus with other skin ulcer (principal); L97.812 Non-pressure chronic ulcer of other part of right lower leg with fat layer exposed; L97.822 Non-pressure chronic ulcer of other part of left lower leg with fat layer exposed | CPT/HCPCS: 11042 ==

== ENCOUNTER 2021-04-01 11:03 | Outpatient (CLI) | payer MEDICAID, SELFPAY | END 2021-04-01 11:04 | disposition home or self-care (01) | LOC: WOUND 11:03 | PROVIDERS: PCP Family Medicine; Visit Provider Nurse Practitioner Family | DX: E11.622 Type 2 diabetes mellitus with other skin ulcer (principal); L97.812 Non-pressure chronic ulcer of other part of right lower leg with fat layer exposed; L97.822 Non-pressure chronic ulcer of other part of left lower leg with fat layer exposed | CPT/HCPCS: 11042 ==

== ENCOUNTER 2021-04-12 09:11 | Outpatient (CLI) | payer MEDICAID, SELFPAY | END 2021-04-12 09:12 | disposition home or self-care (01) | LOC: WOUND 09:12 | PROVIDERS: PCP Family Medicine; Visit Provider Thoracic Surgery (Cardiothoracic Vascular Surgery) | DX: E11.622 Type 2 diabetes mellitus with other skin ulcer (principal); L97.812 Non-pressure chronic ulcer of other part of right lower leg with fat layer exposed; L97.822 Non-pressure chronic ulcer of other part of left lower leg with fat layer exposed | CPT/HCPCS: 11042 ==

== ENCOUNTER 2021-04-16 10:48 | Outpatient (CLI) | payer MEDICAID, SELFPAY | END 2021-04-16 10:49 | disposition home or self-care (01) | LOC: WOUND 10:50 | PROVIDERS: PCP Family Medicine; Visit Provider Nurse Practitioner Family | DX: E11.622 Type 2 diabetes mellitus with other skin ulcer (principal); L97.812 Non-pressure chronic ulcer of other part of right lower leg with fat layer exposed; L97.821 Non-pressure chronic ulcer of other part of left lower leg limited to breakdown of skin | CPT/HCPCS: 29581 ==

== ENCOUNTER 2021-04-18 10:16 | Outpatient (CLI) | payer MEDICAID, SELFPAY | END 2021-04-18 10:17 | disposition home or self-care (01) | LOC: WOUND 10:18 | PROVIDERS: PCP Family Medicine; Visit Provider Nurse Practitioner Family | DX: E11.622 Type 2 diabetes mellitus with other skin ulcer (principal); L97.822 Non-pressure chronic ulcer of other part of left lower leg with fat layer exposed | CPT/HCPCS: 11042; 11045 ==

== ENCOUNTER 2021-04-25 08:45 | Outpatient (CLI) | payer MEDICAID, SELFPAY | END 2021-04-25 08:46 | disposition home or self-care (01) | LOC: WOUND 08:45 | PROVIDERS: PCP Family Medicine; Visit Provider Nurse Practitioner Family | DX: E11.622 Type 2 diabetes mellitus with other skin ulcer (principal); L97.822 Non-pressure chronic ulcer of other part of left lower leg with fat layer exposed | CPT/HCPCS: 29581 ==

== ENCOUNTER 2021-04-29 08:49 | Outpatient (CLI) | payer MEDICAID, SELFPAY | END 2021-04-29 08:50 | disposition home or self-care (01) | LOC: WOUND 08:50 | PROVIDERS: PCP Family Medicine; Visit Provider Nurse Practitioner Family | DX: E11.622 Type 2 diabetes mellitus with other skin ulcer (principal); L97.821 Non-pressure chronic ulcer of other part of left lower leg limited to breakdown of skin; L97.812 Non-pressure chronic ulcer of other part of right lower leg with fat layer exposed | CPT/HCPCS: 11042 ==

== ENCOUNTER 2021-04-29 10:19 | Outpatient (CLI) | payer MEDICAID, SELFPAY ==
[2021-04-29 10:43] LABS: Basophils # 0.1 10^3/uL (0.0-0.1); Basophils % 1.1 %; Eosinophils # 0.2 10^3/uL (0.0-0.8); Eosinophils % 1.6 %; Hemoglobin 14.1 g/dL (11.5-15.3); Lymphocytes # 2.5 10^3/uL (0.8-4.8); Lymphocytes % 20.9 %; Mean Corpuscular HGB Conc 32.8 g/dL (30.0-36.0); Mean Corpuscular Hemoglobin 28.3 pg (28.0-34.0); Mean Corpuscular Volume 86.3 fL (81-99); Monocytes # 0.7 10^3/uL (0.2-0.9); Neutrophils # 8.39 10^3/uL (1.8-7.7); Neutrophils % 69.4 %; Nucleated Red Blood Cells % 0 %; Platelet Count 269 10^3/cmm (130-400); Red Blood Count 4.98 10^6/uL (4.1-5.3); Red Cell Distribution Width 15.9 % (12.1-15.1); White Blood Count 12.1 10^3/uL (4.0-10.0)
[2021-04-29 10:55] LABS: Alanine Aminotransferase 16 U/L (0-33); Albumin Level 3.7 g/dL (3.5-5.2); Alkaline Phosphatase 115 IU/L (35-105); Anion Gap 16.1 (5-19); Aspartate Amino Transferase 12 U/L (0-32); Blood Urea Nitrogen 20 mg/dL (6-20); Calcium 7.9 mg/dL (8.5-10.5); Carbon Dioxide 22 mmol/L (22-29); Chloride 102 mmol/L (98-107); Globulin 2.8 g/dL (1.3-4.6); Glomerular Filtration Rate 86.2 mL/min (90-130); Glucose 152 mg/dL (65-115); Osmolality Calculated 288 mOsm/kg (285-295); Potassium 4.1 mmol/L (3.5-5.1); Sodium 136 mmol/L (136-145); Total Bilirubin 0.3 mg/dL (0.15-1.2); Total Protein 6.5 g/dL (6.6-8.7)
== END 2021-04-29 10:20 | disposition home or self-care (01) ==
LOC: LAB 10:25
PROVIDERS: PCP Family Medicine; Visit Provider Nurse Practitioner Family
DX: R52 Pain, unspecified (principal)
CPT/HCPCS: 36415; 80053; 85025

== ENCOUNTER 2021-05-01 14:32 | Outpatient (CLI) | payer MEDICAID, SELFPAY | END 2021-05-01 14:33 | disposition home or self-care (01) | LOC: WOUND 14:33 | PROVIDERS: PCP Family Medicine; Visit Provider Thoracic Surgery (Cardiothoracic Vascular Surgery) | DX: I87.2 Venous insufficiency (chronic) (peripheral) (principal); E11.622 Type 2 diabetes mellitus with other skin ulcer; L97.812 Non-pressure chronic ulcer of other part of right lower leg with fat layer exposed; L97.822 Non-pressure chronic ulcer of other part of left lower leg with fat layer exposed | CPT/HCPCS: 29581 ==

== ENCOUNTER 2021-05-03 13:19 | Outpatient (CLI) | payer MEDICAID, SELFPAY | END 2021-05-03 13:20 | disposition home or self-care (01) | LOC: WOUND 13:20 | PROVIDERS: PCP Family Medicine; Visit Provider Nurse Practitioner Family | DX: I87.2 Venous insufficiency (chronic) (peripheral) (principal); E11.622 Type 2 diabetes mellitus with other skin ulcer; L97.812 Non-pressure chronic ulcer of other part of right lower leg with fat layer exposed; L97.822 Non-pressure chronic ulcer of other part of left lower leg with fat layer exposed | CPT/HCPCS: 29581 ==

== ENCOUNTER 2021-05-06 09:08 | Outpatient (CLI) | payer MEDICAID, SELFPAY | END 2021-05-06 09:09 | disposition home or self-care (01) | LOC: WOUND 09:11 | PROVIDERS: PCP Family Medicine; Visit Provider Nurse Practitioner Family | DX: E11.622 Type 2 diabetes mellitus with other skin ulcer (principal); L97.811 Non-pressure chronic ulcer of other part of right lower leg limited to breakdown of skin | CPT/HCPCS: 11042 ==

== ENCOUNTER 2021-05-08 11:15 | Outpatient (CLI) | payer MEDICAID, SELFPAY | END 2021-05-08 11:16 | disposition home or self-care (01) | LOC: WOUND 11:15 | PROVIDERS: PCP Family Medicine; Visit Provider Nurse Practitioner Family | DX: E11.622 Type 2 diabetes mellitus with other skin ulcer (principal); L97.812 Non-pressure chronic ulcer of other part of right lower leg with fat layer exposed; L97.822 Non-pressure chronic ulcer of other part of left lower leg with fat layer exposed; I87.2 Venous insufficiency (chronic) (peripheral) | CPT/HCPCS: 29581 ==

== ENCOUNTER 2021-05-10 13:50 | Outpatient (CLI) | payer MEDICAID, SELFPAY | END 2021-05-10 13:51 | disposition home or self-care (01) | LOC: WOUND 13:59 | PROVIDERS: PCP Family Medicine; Visit Provider Surgery | DX: I87.2 Venous insufficiency (chronic) (peripheral) (principal); E11.622 Type 2 diabetes mellitus with other skin ulcer; L97.812 Non-pressure chronic ulcer of other part of right lower leg with fat layer exposed; L97.822 Non-pressure chronic ulcer of other part of left lower leg with fat layer exposed | CPT/HCPCS: 29581 ==

== ENCOUNTER 2021-05-10 14:52 | Outpatient (CLI) | payer MEDICAID, SELFPAY | END 2021-05-10 14:53 | disposition home or self-care (01) | LOC: WOUND 05-13 09:03 | PROVIDERS: PCP Family Medicine; Visit Provider Surgery | DX: E11.622 Type 2 diabetes mellitus with other skin ulcer (principal); L97.812 Non-pressure chronic ulcer of other part of right lower leg with fat layer exposed; L97.822 Non-pressure chronic ulcer of other part of left lower leg with fat layer exposed; I87.2 Venous insufficiency (chronic) (peripheral) | CPT/HCPCS: 29581 ==

== ENCOUNTER 2021-05-13 09:15 | Outpatient (CLI) | payer MEDICAID, SELFPAY | END 2021-05-13 09:16 | disposition home or self-care (01) | LOC: WOUND 09:15 | PROVIDERS: PCP Family Medicine; Visit Provider Nurse Practitioner Family | DX: E11.622 Type 2 diabetes mellitus with other skin ulcer (principal); L97.811 Non-pressure chronic ulcer of other part of right lower leg limited to breakdown of skin | CPT/HCPCS: 11042 ==

== ENCOUNTER 2021-05-15 13:59 | Outpatient (CLI) | payer MEDICAID, SELFPAY | END 2021-05-15 14:00 | disposition home or self-care (01) | LOC: WOUND 13:59 | PROVIDERS: PCP Family Medicine; Visit Provider Thoracic Surgery (Cardiothoracic Vascular Surgery) | DX: E11.622 Type 2 diabetes mellitus with other skin ulcer (principal); L97.812 Non-pressure chronic ulcer of other part of right lower leg with fat layer exposed; L97.822 Non-pressure chronic ulcer of other part of left lower leg with fat layer exposed; I87.2 Venous insufficiency (chronic) (peripheral) | CPT/HCPCS: 29581 ==

== ENCOUNTER 2021-05-17 15:35 | Outpatient (CLI) | payer MEDICAID, SELFPAY | END 2021-05-17 15:36 | disposition home or self-care (01) | LOC: WOUND 15:36 | PROVIDERS: PCP Family Medicine; Visit Provider Surgery | DX: E11.622 Type 2 diabetes mellitus with other skin ulcer (principal); L97.812 Non-pressure chronic ulcer of other part of right lower leg with fat layer exposed; L97.822 Non-pressure chronic ulcer of other part of left lower leg with fat layer exposed; I87.2 Venous insufficiency (chronic) (peripheral) | CPT/HCPCS: 29581 ==

== ENCOUNTER 2021-05-20 10:49 | Outpatient (CLI) | payer MEDICAID, SELFPAY | END 2021-05-20 10:50 | disposition home or self-care (01) | LOC: WOUND 10:50 | PROVIDERS: PCP Family Medicine; Visit Provider Nurse Practitioner Family | DX: E11.622 Type 2 diabetes mellitus with other skin ulcer (principal); L97.812 Non-pressure chronic ulcer of other part of right lower leg with fat layer exposed | CPT/HCPCS: 11042; 11045 ==

== ENCOUNTER 2021-05-22 14:34 | Outpatient (CLI) | payer MEDICAID, SELFPAY | END 2021-05-22 14:35 | disposition home or self-care (01) | LOC: WOUND 14:35 | PROVIDERS: PCP Family Medicine; Visit Provider Nurse Practitioner Family | DX: E11.622 Type 2 diabetes mellitus with other skin ulcer (principal); L97.812 Non-pressure chronic ulcer of other part of right lower leg with fat layer exposed; L97.822 Non-pressure chronic ulcer of other part of left lower leg with fat layer exposed; I87.2 Venous insufficiency (chronic) (peripheral) | CPT/HCPCS: 29581 ==

== ENCOUNTER 2021-05-24 14:10 | Outpatient (CLI) | payer MEDICAID, SELFPAY | END 2021-05-24 14:11 | disposition home or self-care (01) | LOC: WOUND 14:10 | PROVIDERS: PCP Family Medicine; Visit Provider Nurse Practitioner Family | DX: E11.622 Type 2 diabetes mellitus with other skin ulcer (principal); L97.812 Non-pressure chronic ulcer of other part of right lower leg with fat layer exposed; L97.822 Non-pressure chronic ulcer of other part of left lower leg with fat layer exposed; I87.2 Venous insufficiency (chronic) (peripheral) | CPT/HCPCS: 29581 ==

== ENCOUNTER 2021-05-28 14:37 | Outpatient (CLI) | payer MEDICAID, SELFPAY | END 2021-05-28 14:38 | disposition home or self-care (01) | LOC: WOUND 14:37 | PROVIDERS: PCP Family Medicine; Visit Provider Thoracic Surgery (Cardiothoracic Vascular Surgery) | DX: E11.622 Type 2 diabetes mellitus with other skin ulcer (principal); L97.812 Non-pressure chronic ulcer of other part of right lower leg with fat layer exposed; L97.822 Non-pressure chronic ulcer of other part of left lower leg with fat layer exposed; I87.2 Venous insufficiency (chronic) (peripheral) | CPT/HCPCS: 29581 ==

== ENCOUNTER 2021-05-30 10:01 | Outpatient (CLI) | payer MEDICAID, SELFPAY | END 2021-05-30 10:02 | disposition home or self-care (01) | LOC: WOUND 10:02 | PROVIDERS: PCP Family Medicine; Visit Provider Nurse Practitioner Family | DX: I89.0 Lymphedema, not elsewhere classified (principal) | CPT/HCPCS: 29581 ==

== ENCOUNTER 2021-06-07 14:50 | Outpatient (CLI) | payer MEDICAID, SELFPAY | END 2021-06-07 14:51 | disposition home or self-care (01) | LOC: WOUND 14:50 | PROVIDERS: PCP Family Medicine; Visit Provider Surgery | DX: I87.2 Venous insufficiency (chronic) (peripheral) (principal); E11.622 Type 2 diabetes mellitus with other skin ulcer; L97.812 Non-pressure chronic ulcer of other part of right lower leg with fat layer exposed; L97.822 Non-pressure chronic ulcer of other part of left lower leg with fat layer exposed | CPT/HCPCS: 29581 ==

== ENCOUNTER 2021-06-10 10:35 | Outpatient (CLI) | payer MEDICAID, SELFPAY | END 2021-06-10 10:36 | disposition home or self-care (01) | LOC: WOUND 10:36 | PROVIDERS: PCP Family Medicine; Visit Provider Nurse Practitioner Family | DX: I87.2 Venous insufficiency (chronic) (peripheral) (principal); L97.812 Non-pressure chronic ulcer of other part of right lower leg with fat layer exposed | CPT/HCPCS: 29581 ==

== ENCOUNTER 2021-06-17 09:48 | Outpatient (CLI) | payer MEDICAID, SELFPAY | END 2021-06-17 09:49 | disposition home or self-care (01) | LOC: WOUND 09:49 | PROVIDERS: PCP Family Medicine; Visit Provider Nurse Practitioner Family | DX: I87.2 Venous insufficiency (chronic) (peripheral) (principal); L97.812 Non-pressure chronic ulcer of other part of right lower leg with fat layer exposed; F17.210 Nicotine dependence, cigarettes, uncomplicated | CPT/HCPCS: 29581 ==

== ENCOUNTER 2021-06-21 13:20 | Outpatient (CLI) | payer MEDICAID, SELFPAY | END 2021-06-21 13:21 | disposition home or self-care (01) | LOC: WOUND 13:21 | PROVIDERS: PCP Family Medicine; Visit Provider Surgery | DX: I87.2 Venous insufficiency (chronic) (peripheral) (principal); E11.622 Type 2 diabetes mellitus with other skin ulcer; L97.812 Non-pressure chronic ulcer of other part of right lower leg with fat layer exposed; L97.822 Non-pressure chronic ulcer of other part of left lower leg with fat layer exposed | CPT/HCPCS: 29581 ==

== ENCOUNTER 2021-06-24 09:11 | Outpatient (CLI) | payer MEDICAID, SELFPAY | END 2021-06-24 09:12 | disposition home or self-care (01) | LOC: WOUND 09:12 | PROVIDERS: PCP Family Medicine; Visit Provider Nurse Practitioner Family | DX: I87.2 Venous insufficiency (chronic) (peripheral) (principal); L97.812 Non-pressure chronic ulcer of other part of right lower leg with fat layer exposed | CPT/HCPCS: 29581 ==

== ENCOUNTER 2021-06-27 11:08 | Outpatient (CLI) | payer MEDICAID, SELFPAY | END 2021-06-27 11:09 | disposition home or self-care (01) | LOC: WOUND 11:09 | PROVIDERS: PCP Family Medicine; Visit Provider Emergency Medicine | DX: I87.2 Venous insufficiency (chronic) (peripheral) (principal); E11.622 Type 2 diabetes mellitus with other skin ulcer; L97.812 Non-pressure chronic ulcer of other part of right lower leg with fat layer exposed; L97.822 Non-pressure chronic ulcer of other part of left lower leg with fat layer exposed | CPT/HCPCS: 29581 ==

== ENCOUNTER 2021-07-01 10:57 | Outpatient (CLI) | payer MEDICAID, SELFPAY | END 2021-07-01 10:58 | disposition home or self-care (01) | LOC: WOUND 10:58 | PROVIDERS: PCP Family Medicine; Visit Provider Nurse Practitioner Family | DX: I87.2 Venous insufficiency (chronic) (peripheral) (principal); L97.812 Non-pressure chronic ulcer of other part of right lower leg with fat layer exposed; F17.210 Nicotine dependence, cigarettes, uncomplicated | CPT/HCPCS: 29581 ==

== ENCOUNTER 2021-07-08 10:29 | Outpatient (CLI) | payer MEDICAID, SELFPAY | END 2021-07-08 10:30 | disposition home or self-care (01) | LOC: WOUND 10:31 | PROVIDERS: PCP Family Medicine; Visit Provider Nurse Practitioner Family | DX: I87.2 Venous insufficiency (chronic) (peripheral) (principal); L97.812 Non-pressure chronic ulcer of other part of right lower leg with fat layer exposed; F17.210 Nicotine dependence, cigarettes, uncomplicated | CPT/HCPCS: 11042 ==

== ENCOUNTER 2021-07-15 10:29 | Outpatient (CLI) | payer MEDICAID, SELFPAY | END 2021-07-15 10:30 | disposition home or self-care (01) | LOC: WOUND 10:29 | PROVIDERS: PCP Family Medicine; Visit Provider Emergency Medicine | DX: I87.2 Venous insufficiency (chronic) (peripheral) (principal); L97.812 Non-pressure chronic ulcer of other part of right lower leg with fat layer exposed; L97.822 Non-pressure chronic ulcer of other part of left lower leg with fat layer exposed; F17.210 Nicotine dependence, cigarettes, uncomplicated | CPT/HCPCS: 11042 ==

== ENCOUNTER 2021-07-15 13:40 | Outpatient (CLI) | payer MEDICAID, SELFPAY ==
--- NOTE | 2021-07-15 13:45 | US_ITS ---
WS: [id number] INDICATION: Left leg pain and swelling TECHNIQUE: Ultrasound left lower extremity superficial soft tissues with Doppler. FINDINGS: Subcutaneous edema in the area of the left anterior ankle. No evidence of drainable abscess or fluid collection. Superficial vessels are compressible with normal flow. No evidence of superfici al thrombus. US/US soft tissue/extremity [id number] IMPRESSION: 1. Subcutaneous edema in the left anterior ankle area of concern. 2. No drainable abscess or fluid collection. 3. Superficial vessels are normal. No superficial thrombus
== END 2021-07-15 13:41 | disposition home or self-care (01) ==
LOC: RAD 13:43
PROVIDERS: PCP Family Medicine; Visit Provider Emergency Medicine
DX: M79.605 Pain in left leg (principal); L53.9 Erythematous condition, unspecified; M79.89 Other specified soft tissue disorders; R60.0 Localized edema
CPT/HCPCS: 76882

== ENCOUNTER 2021-07-17 15:09 | Outpatient (CLI) | payer MEDICAID, SELFPAY | END 2021-07-17 15:10 | disposition home or self-care (01) | LOC: WOUND 15:10 | PROVIDERS: PCP Family Medicine; Visit Provider Nurse Practitioner Family | DX: I87.2 Venous insufficiency (chronic) (peripheral) (principal); E11.622 Type 2 diabetes mellitus with other skin ulcer; L97.812 Non-pressure chronic ulcer of other part of right lower leg with fat layer exposed; L97.822 Non-pressure chronic ulcer of other part of left lower leg with fat layer exposed | CPT/HCPCS: 29581 ==

== ENCOUNTER 2021-07-22 14:41 | Outpatient (CLI) | payer MEDICAID, SELFPAY | END 2021-07-22 14:42 | disposition home or self-care (01) | LOC: WOUND 14:42 | PROVIDERS: PCP Family Medicine; Visit Provider Nurse Practitioner Family | DX: I96 Gangrene, not elsewhere classified (principal); I87.2 Venous insufficiency (chronic) (peripheral); L97.812 Non-pressure chronic ulcer of other part of right lower leg with fat layer exposed; E11.622 Type 2 diabetes mellitus with other skin ulcer; L97.222 Non-pressure chronic ulcer of left calf with fat layer exposed; F17.210 Nicotine dependence, cigarettes, uncomplicated | CPT/HCPCS: 11042 ==

== ENCOUNTER 2021-08-01 14:39 | Outpatient (RCR) | payer MEDICAID, SELFPAY | END 2021-08-22 23:59 | disposition home or self-care (01) | LOC: WOUND 14:39 | PROVIDERS: PCP Family Medicine; Visit Provider Emergency Medicine | DX: I87.2 Venous insufficiency (chronic) (peripheral) (principal); L97.812 Non-pressure chronic ulcer of other part of right lower leg with fat layer exposed; F17.210 Nicotine dependence, cigarettes, uncomplicated | CPT/HCPCS: 11042; 11045 ==

== ENCOUNTER 2021-08-05 15:05 | Outpatient (CLI) | payer MEDICAID, SELFPAY | END 2021-08-05 15:06 | disposition home or self-care (01) | LOC: WOUND 15:06 | PROVIDERS: PCP Family Medicine; Visit Provider Emergency Medicine | DX: I87.2 Venous insufficiency (chronic) (peripheral) (principal); L97.812 Non-pressure chronic ulcer of other part of right lower leg with fat layer exposed; F17.210 Nicotine dependence, cigarettes, uncomplicated | CPT/HCPCS: 11042; 11045; 99212 ==

== ENCOUNTER 2021-08-12 10:53 | Outpatient (CLI) | payer MEDICAID, SELFPAY | END 2021-08-12 10:54 | disposition home or self-care (01) | LOC: WOUND 10:53 | PROVIDERS: PCP Family Medicine; Visit Provider Emergency Medicine | DX: I87.2 Venous insufficiency (chronic) (peripheral) (principal); L97.812 Non-pressure chronic ulcer of other part of right lower leg with fat layer exposed; F17.210 Nicotine dependence, cigarettes, uncomplicated | CPT/HCPCS: 11042; 11045 ==

== ENCOUNTER 2021-08-19 10:29 | Outpatient (RCR) | payer MEDICAID, SELFPAY | END 2021-08-22 23:59 | disposition home or self-care (01) | LOC: WOUND 10:29 | PROVIDERS: PCP Family Medicine; Visit Provider Emergency Medicine | DX: I87.2 Venous insufficiency (chronic) (peripheral) (principal); L97.812 Non-pressure chronic ulcer of other part of right lower leg with fat layer exposed | CPT/HCPCS: 11042; 11045 ==

== ENCOUNTER 2021-08-26 15:01 | Outpatient (CLI) | payer MEDICAID, SELFPAY | END 2021-08-26 15:02 | disposition home or self-care (01) | LOC: WOUND 15:01 | PROVIDERS: PCP Family Medicine; Visit Provider Emergency Medicine | DX: I87.2 Venous insufficiency (chronic) (peripheral) (principal); L97.822 Non-pressure chronic ulcer of other part of left lower leg with fat layer exposed; F17.210 Nicotine dependence, cigarettes, uncomplicated | CPT/HCPCS: 11042; 87070; 87077; 87176; 87186; 87205 ==

== ENCOUNTER 2021-09-02 14:24 | Outpatient (CLI) | payer MEDICAID, SELFPAY | END 2021-09-02 14:25 | disposition home or self-care (01) | LOC: WOUND 14:24 | PROVIDERS: PCP Family Medicine; Visit Provider Emergency Medicine | DX: I87.2 Venous insufficiency (chronic) (peripheral) (principal); L97.812 Non-pressure chronic ulcer of other part of right lower leg with fat layer exposed; F17.210 Nicotine dependence, cigarettes, uncomplicated | CPT/HCPCS: 11042; 11045; A6253 ==

== ENCOUNTER 2021-09-09 15:05 | Outpatient (CLI) | payer MEDICAID, SELFPAY | END 2021-09-09 15:06 | disposition home or self-care (01) | LOC: WOUND 15:06 | PROVIDERS: PCP Family Medicine; Visit Provider Emergency Medicine | DX: I87.2 Venous insufficiency (chronic) (peripheral) (principal); L97.812 Non-pressure chronic ulcer of other part of right lower leg with fat layer exposed; F17.210 Nicotine dependence, cigarettes, uncomplicated | CPT/HCPCS: 11042; 11045 ==

== ENCOUNTER 2021-09-16 13:48 | Outpatient (RCR) | payer MEDICAID, SELFPAY | END 2021-09-22 23:59 | disposition home or self-care (01) | LOC: WOUND 13:48 | PROVIDERS: PCP Family Medicine; Visit Provider Nurse Practitioner Family | DX: I87.2 Venous insufficiency (chronic) (peripheral) (principal); L97.812 Non-pressure chronic ulcer of other part of right lower leg with fat layer exposed; F17.210 Nicotine dependence, cigarettes, uncomplicated | CPT/HCPCS: 29581; A6253 ==

== ENCOUNTER 2021-09-20 13:56 | Outpatient (CLI) | payer MEDICAID, SELFPAY | END 2021-09-20 13:57 | disposition home or self-care (01) | LOC: WOUND 13:56 | PROVIDERS: PCP Family Medicine; Visit Provider Surgery | DX: E11.622 Type 2 diabetes mellitus with other skin ulcer (principal); L97.812 Non-pressure chronic ulcer of other part of right lower leg with fat layer exposed; L97.822 Non-pressure chronic ulcer of other part of left lower leg with fat layer exposed; I87.2 Venous insufficiency (chronic) (peripheral) | CPT/HCPCS: 29581; A6253 ==

== ENCOUNTER 2021-09-23 14:40 | Outpatient (CLI) | payer MEDICAID, SELFPAY | END 2021-09-23 14:41 | disposition home or self-care (01) | LOC: WOUND 14:41 | PROVIDERS: PCP Family Medicine; Visit Provider Emergency Medicine | DX: I87.2 Venous insufficiency (chronic) (peripheral) (principal); L97.812 Non-pressure chronic ulcer of other part of right lower leg with fat layer exposed; E11.622 Type 2 diabetes mellitus with other skin ulcer; L97.822 Non-pressure chronic ulcer of other part of left lower leg with fat layer exposed; F17.210 Nicotine dependence, cigarettes, uncomplicated | CPT/HCPCS: 11042; 11045 ==

== ENCOUNTER 2021-09-30 13:31 | Outpatient (CLI) | payer MEDICAID, SELFPAY | END 2021-09-30 13:32 | disposition home or self-care (01) | LOC: WOUND 13:31 | PROVIDERS: PCP Family Medicine; Visit Provider Nurse Practitioner Family | DX: I87.2 Venous insufficiency (chronic) (peripheral) (principal); L97.812 Non-pressure chronic ulcer of other part of right lower leg with fat layer exposed; E11.622 Type 2 diabetes mellitus with other skin ulcer; L97.821 Non-pressure chronic ulcer of other part of left lower leg limited to breakdown of skin; F17.210 Nicotine dependence, cigarettes, uncomplicated | CPT/HCPCS: 11042; 11045 ==

== ENCOUNTER 2021-10-07 13:43 | Outpatient (CLI) | payer MEDICAID, SELFPAY | END 2021-10-07 13:44 | disposition home or self-care (01) | PROVIDERS: PCP Family Medicine; Visit Provider Emergency Medicine | DX: I87.2 Venous insufficiency (chronic) (peripheral) (principal); L97.812 Non-pressure chronic ulcer of other part of right lower leg with fat layer exposed; E11.622 Type 2 diabetes mellitus with other skin ulcer; L97.829 Non-pressure chronic ulcer of other part of left lower leg with unspecified severity; F17.210 Nicotine dependence, cigarettes, uncomplicated; I10 Essential (primary) hypertension | CPT/HCPCS: 11042; 11045; 99212 ==

== ENCOUNTER 2021-10-14 13:52 | Outpatient (CLI) | payer MEDICAID, SELFPAY | END 2021-10-14 13:53 | disposition home or self-care (01) | LOC: WOUND 13:53 | PROVIDERS: PCP Family Medicine; Visit Provider Emergency Medicine | DX: I87.2 Venous insufficiency (chronic) (peripheral) (principal); L97.812 Non-pressure chronic ulcer of other part of right lower leg with fat layer exposed; L97.822 Non-pressure chronic ulcer of other part of left lower leg with fat layer exposed; F17.210 Nicotine dependence, cigarettes, uncomplicated; I10 Essential (primary) hypertension; E11.9 Type 2 diabetes mellitus without complications | CPT/HCPCS: 11042; 11045; 99212 ==

== ENCOUNTER 2021-10-21 14:16 | Outpatient (CLI) | payer MEDICAID, SELFPAY | END 2021-10-21 14:17 | disposition home or self-care (01) | LOC: WOUND 14:16 | PROVIDERS: PCP Family Medicine; Visit Provider Emergency Medicine | DX: I87.2 Venous insufficiency (chronic) (peripheral) (principal); L97.812 Non-pressure chronic ulcer of other part of right lower leg with fat layer exposed; E11.622 Type 2 diabetes mellitus with other skin ulcer; L97.829 Non-pressure chronic ulcer of other part of left lower leg with unspecified severity; E11.621 Type 2 diabetes mellitus with foot ulcer; L97.522 Non-pressure chronic ulcer of other part of left foot with fat layer exposed; L97.512 Non-pressure chronic ulcer of other part of right foot with fat layer exposed; F17.210 Nicotine dependence, cigarettes, uncomplicated; I10 Essential (primary) hypertension | CPT/HCPCS: 11042; G0463 ==

== ENCOUNTER 2021-10-23 14:37 | Inpatient (IN) | payer MEDICAID, SELFPAY ==
[2021-10-23 14:52] VITALS: BP 142/65; PULSE 94; RESP 18; TEMP 36.1; O2SAT 100; BMI 53.0
[2021-10-23 17:35] LABS: Basophils # 0.1 10^3/uL (0.0-0.1); Eosinophils # 0.3 10^3/uL (0.0-0.8); Eosinophils % 2.3 %; Hematocrit 44.2 % (37.0-47.0); Hemoglobin 13.6 g/dL (11.5-15.3); Lymphocytes # 1.7 10^3/uL (0.8-4.8); Lymphocytes % 13.6 %; Mean Corpuscular HGB Conc 30.8 g/dL (30.0-36.0); Mean Corpuscular Hemoglobin 27.8 pg (28.0-34.0); Mean Corpuscular Volume 90.2 fl (81-99); Mean Platelet Volume 10.6 fL (7.4-10.4); Monocytes # 0.8 10^3/uL (0.2-0.9); Monocytes % 6.3 %; Neutrophils # 9.55 10^3/uL (1.8-7.7); Neutrophils % 76.2 %; Nucleated Red Blood Cells % 0 %; Platelet Count 302 10^3/cmm (130-400); Red Cell Distribution Width 15.5 % (12.1-15.1); White Blood Count 12.5 10^3/uL (4.0-10.0)
[2021-10-23 17:56] LABS: Alanine Aminotransferase 21 U/L (0-33); Albumin Level 3.7 g/dL (3.5-5.2); Alkaline Phosphatase 149 IU/L (35-105); Anion Gap 15.9 (5-19); Aspartate Amino Transferase 14 U/L (0-32); Blood Urea Nitrogen 34 mg/dL (6-20); C Reactive Protein 51.6 mg/L (0.0-4.9); Calcium 8.1 mg/dL (8.5-10.5); Carbon Dioxide 24 mmol/L (22-29); Chloride 101 mmol/L (98-107); Globulin 2.6 g/dL (1.3-4.6); Glomerular Filtration Rate 64.5 mL/min (90-130); Osmolality Calculated 313 mOsm/kg (285-295); Potassium 4.9 mmol/L (3.5-5.1); Sodium 136 mmol/L (136-145); Total Bilirubin 0.2 mg/dL (0.15-1.2); Total Protein 6.3 g/dL (6.6-8.7)
[2021-10-23 17:57] LABS: Glucose 513 mg/dL (65-115)
[2021-10-23 18:34] LABS: Ketone (Acetest) Serum Negative (Negative)
--- NOTE | 2021-10-23 19:45 | W.ED.SKABFB ---
Documented by User: CHECO Penaloza 10/23/21 22:46 HPI - Skin/Abscess/Foreign Bdy General: Chief complaint: Skin/Abscess/Foreign Body Stated complaint: BLE WOUNDS: SENT BY DR VELA Time Seen by Provider: 10/23/21 19:45 History of Present Illness: HPI narrative: Patient has chronic stasis dermatitis has recently had 3 ulcers to her legs that have been poor to healing. Patient back at 23 August had cultures done that showed staph aureus and Aeromonas hydrophila group. Patient has been on 2 different antibiotics outpatient orally with no improvement. Dr. Vela nursing specialist wanted patient evaluated in the ER and possibly admitted for IV antibiotics. Patient appears well. Patient appears no acute distress. Patient has ulcerations to the lower extremity that are chronic. Review of Systems General: Reports: 10 or more systems reviewed and unremarkable except in HPI and below Skin/Breast: Reports: other (Bilateral lower extremity skin ulcers) [facility] ED PFSH: Medical History (Updated 10/26/21 @ 08:13 by Kushal Benitez DPM) Arthritis Crohn's disease Diabetes mellitus HTN (hypertension) IBS (irritable bowel syndrome) Migraine Peripheral arterial occlusive disease Surgical wound dehiscence Venous insufficiency (chronic) (peripheral) Surgical History (Updated 10/24/21 @ 06:03 by Nany Darnell MD) History of dental surgery S/P cataract extraction S/P cholecystectomy Family History Father Diabetes Heart disease Stroke Other Chronic kidney disease (CKD) Hypertension Seizures Social History Smoking and tobacco status: current every day smoker cigarettes Packs smoked per day: 10 Years cigarettes smoked: 15 Physical Exam Const: COMMON NORMALS: no acute distress and patient oriented x3 GENERAL APPEARANCE: cooperative HENMT: COMMON NORMALS: normocephalic and Normal external nose present HEAD & SCALP: normal to inspection and normocephalic NOSE: Normal external nose present MOUTH: Normal oral and palatal mucosa present THROAT: posterior oropharynx normal Eye: GENERAL EYE: appearance normal, both eyes and all related structures Neck/C-Spine: COMMON NORMALS: full ROM Chest: COMMONS NORMALS: normal inspection of the chest Resp: COMMON NORMALS: normal respiratory effort EFFORT & INSPECTION: Yes able to speak in complete sentences Cardio: COMMON NORMALS: regular rate and regular rhythm RATE: regular rate RHYTHM: regular rhythm GI: COMMON NORMALS: non-tender Extremity: COMMON NORMALS: normal to inspection Neuro: COMMON NORMALS: patient oriented x3 and moves all extremities Psych: COMMON NORMALS: mental status grossly normal and cooperative Skin: NARRATIVE SKIN EXAM: Lower extremities are dressed and wound care dressing with Vishal wraps. Patient has significant erythema to the calf and below bilaterally with sloughing of the skin. Both lower extremities seem to have worse symptoms to the posterior aspect of the leg. Pulses are palpable to the dorsal pedis. Course ED course: 2199, reviewed patient with Dr. Hendricks who agreed that patient should be admitted. I talked with Dr. Darnell who agreed to patient's admission she recommended ceftriaxone for treatment of the infection per IV. Patient was notified and agreed to plan. Vital Signs: Vital signs: Vital Signs Temperature 97.4 F L 10/26/21 11:38 Pulse Rate 83 10/26/21 11:38 Respiratory Rate 18 10/26/21 11:38 Blood Pressure 119/73 10/26/21 11:38 Pulse Oximetry 96 10/26/21 11:38 MDM - Skin/Abscess/Foreign Bdy MDM Narrative: Medical decision making narrative: Patient was sent over by wound care specialty for concerns of persistent infection to the lower extremities bilaterally. They have been treating with failed outpatient treatment with clindamycin, Cipro, and gentamicin wraps. On exam patient is alert oriented. Patient is afebrile. On exam patient has significant redness and erythema to bilateral lower extremities with sloughing of the skin. Pulses are intact. Patient has 2 sores to each of the great toes. Significant deterioration of the tissue is noted in the posterior aspect of the lower leg bilaterally. 1 extremity does not seem worse than the other. Differential diagnosis includes stasis dermatitis, cellulitis, uncontrolled diabetes. Laboratory values noted a white count of 12,000, glucose was 513, ketones were negative. Patient was given 1 g of vancomycin 1 g of ceftriaxone. Review of the record noted that patient had Aeromonas hydrophila and Staph aureus with her last culture done at 23 August. This was reviewed with Dr. Clayton and he felt the patient needed to be admitted. Dr. Darnell hospitalist was consulted for admission to the medical surgical unit. Lab Data: Labs: Lab Results 10/23/21 10/23/21 10/23/21 17:30 17:30 17:30 WBC 12.5 10^3/uL H 10 ^3/uL (4.0-10.0) RBC 4.90 10^6/uL 10^6 /uL (4.1-5.3) Hgb 13.6 g/dL g/dL (11.5-15.3) Hct 44.2 % % (37.0-47.0) MCV 90.2 fl fl (81-99) MCH 27.8 pg L pg (28.0-34.0) MCHC 30.8 g/dL g/dL (30.0-36.0) RDW 15.5 % H % (12.1-15.1) Plt Count 302 10^3/cmm 10^3 /cmm (130-400) MPV 10.6 fL H fL (7.4-10.4) Neut % (Auto) 76.2 % % Lymph % (Auto) 13.6 % % Waldo % (Auto) 6.3 % % Eos % (Auto) 2.3 % % Baso % (Auto) 1.0 % % Neut # (Auto) 9.55 10^3/uL H 10 ^3/uL (1.8-7.7) Lymph # (Auto) 1.7 10^3/uL 10^3/ uL (0.8-4.8) Waldo # (Auto) 0.8 10^3/uL 10^3/ uL (0.2-0.9) Eos # (Auto) 0.3 10^3/uL 10^3/ uL (0.0-0.8) Baso # (Auto) 0.1 10^3/uL 10^3/ uL (0.0-0.1) Nucleated RBC % (a uto) 0 % % Nucleated RBCs # 0.0 /100WBC /100W BC Sodium 136 mmol/L mmol/L (136-145) Potassium 4.9 mmol/L mmol/L (3.5-5.1) Chloride 101 mmol/L mmol/L (98-107) Carbon Dioxide 24 mmol/L mmol/L (22-29) Anion Gap 15.9 (5-19) BUN 34 mg/dL H mg/dL (6-20) Creatinine 0.9 mg/dL mg/dL (0.5-0.9) GFR Calculation 64.5 mL/min L mL/ min (90-130) Glucose 513 mg/dL H* mg/d L (65-115) Estimat Average Gl ucose Hemoglobin A1c Calculated Osmolal ity 313 mOsm/kg H mOs m/kg (285-295) Calcium 8.1 mg/dL L mg/dL (8.5-10.5) Total Bilirubin 0.2 mg/dL mg/dL (0.15-1.2) AST 14 U/L U/L (0-32) ALT 21 U/L U/L (0-33) Alkaline Phosphata se 149 IU/L H IU/L (35-105) C-Reactive Protein 51.6 mg/L H mg/L (0.0-4.9) Total Protein 6.3 g/dL L g/dL (6.6-8.7) Albumin 3.7 g/dL g/dL (3.5-5.2) Globulin 2.6 g/dL g/dL (1.3-4.6) Serum Ketones Negative (Negative) 10/23/21 17:30 WBC RBC Hgb Hct MCV MCH MCHC RDW Plt Count MPV Neut % (Auto) Lymph % (Auto) Waldo % (Auto) Eos % (Auto) Baso % (Auto) Neut # (Auto) Lymph # (Auto) Waldo # (Auto) Eos # (Auto) Baso # (Auto) Nucleated RBC % (a uto) Nucleated RBCs # Sodium Potassium Chloride Carbon Dioxide Anion Gap BUN Creatinine GFR Calculation Glucose Estimat Average Gl ucose 255 Hemoglobin A1c 10.5 % H % (4.0-6.0) Calculated Osmolal ity Calcium Total Bilirubin AST ALT Alkaline Phosphata se C-Reactive Protein Total Protein Albumin Globulin Serum Ketones Discharge Plan Discharge Patient Disposition: Admitted As Inpatient Admit Provider: Nany Darnell Clinical Impression: Venous insufficiency (chronic) (peripheral) Cellulitis Qualifiers: Site of cellulitis: extremity Site of cellulitis of extremity: lower extremity Laterality: unspecified laterality Qualified Code(s): L03.119 - Cellulitis of unspecified part of limb Condition: Stable Discharge Diet: Cardiac Discharge Activity: Resume usual activity Sign Out Sign Out Data: Patient Sign Out occurred on 10/23/21 at 23:32. Patient's care was discussed, and care was transferred from to Abebe Clayton MD. Coding Level of Care Code ED Traffic Sign Erection Supervisor for Chg Fwd Exam Comprehensive Documented by User: Abebe Clayton MD 10/28/21 21:38 HPI - Skin/Abscess/Foreign Bdy General: Chief complaint: Skin/Abscess/Foreign Body Stated complaint: BLE WOUNDS: SENT BY DR VELA Time Seen by Provider: 10/23/21 19:45 [facility] ED PFSH: Medical History (Updated 10/26/21 @ 08:13 by Kushal Benitez DPM) Arthritis Crohn's disease Diabetes mellitus HTN (hypertension) IBS (irritable bowel syndrome) Migraine Peripheral arterial occlusive disease Surgical wound dehiscence Venous insufficiency (chronic) (peripheral) Surgical History (Updated 10/24/21 @ 06:03 by Nany Darnell MD) History of dental surgery S/P cataract extraction S/P cholecystectomy Family History Father Diabetes Heart disease Stroke Other Chronic kidney disease (CKD) Hypertension Seizures Social History Smoking and tobacco status: current every day smoker cigarettes Packs smoked per day: 10 Years cigarettes smoked: 15 Course Vital Signs: Vital signs: Vital Signs Temperature 97.4 F L 10/26/21 11:38 Pulse Rate 83 10/26/21 11:38 Respiratory Rate 18 10/26/21 11:38 Blood Pressure 119/73 10/26/21 11:38 Pulse Oximetry 96 10/26/21 11:38 MDM - Skin/Abscess/Foreign Bdy MDM Narrative: Medical decision making narrative: I discussed this case with Anil Valadez NP. I have reviewed documentation, imaging, labs and previous notes. I personally evaluated the patient, we performed mclean portions of the E/M, and agree as documented.. Abebe Clayton MD Emergency Medicine Lab Data: Labs: Lab Results 10/23/21 10/23/21 10/23/21 17:30 17:30 17:30 WBC 12.5 10^3/uL H 10 ^3/uL (4.0-10.0) RBC 4.90 10^6/uL 10^6 /uL (4.1-5.3) Hgb 13.6 g/dL g/dL (11.5-15.3) Hct 44.2 % % (37.0-47.0) MCV 90.2 fl fl (81-99) MCH 27.8 pg L pg (28.0-34.0) MCHC 30.8 g/dL g/dL (30.0-36.0) RDW 15.5 % H % (12.1-15.1) Plt Count 302 10^3/cmm 10^3 /cmm (130-400) MPV 10.6 fL H fL (7.4-10.4) Neut % (Auto) 76.2 % % Lymph % (Auto) 13.6 % % Waldo % (Auto) 6.3 % % Eos % (Auto) 2.3 % % Baso % (Auto) 1.0 % % Neut # (Auto) 9.55 10^3/uL H 10 ^3/uL (1.8-7.7) Lymph # (Auto) 1.7 10^3/uL 10^3/ uL (0.8-4.8) Waldo # (Auto) 0.8 10^3/uL 10^3/ uL (0.2-0.9) Eos # (Auto) 0.3 10^3/uL 10^3/ uL (0.0-0.8) Baso # (Auto) 0.1 10^3/uL 10^3/ uL (0.0-0.1) Nucleated RBC % (a uto) 0 % % Nucleated RBCs # 0.0 /100WBC /100W BC Sodium 136 mmol/L mmol/L (136-145) Potassium 4.9 mmol/L mmol/L (3.5-5.1) Chloride 101 mmol/L mmol/L (98-107) Carbon Dioxide 24 mmol/L mmol/L (22-29) Anion Gap 15.9 (5-19) BUN 34 mg/dL H mg/dL (6-20) Creatinine 0.9 mg/dL mg/dL (0.5-0.9) GFR Calculation 64.5 mL/min L mL/ min (90-130) Glucose 513 mg/dL H* mg/d L (65-115) Estimat Average Gl ucose Hemoglobin A1c Calculated Osmolal ity 313 mOsm/kg H mOs m/kg (285-295) Calcium 8.1 mg/dL L mg/dL (8.5-10.5) Total Bilirubin 0.2 mg/dL mg/dL (0.15-1.2) AST 14 U/L U/L (0-32) ALT 21 U/L U/L (0-33) Alkaline Phosphata se 149 IU/L H IU/L (35-105) C-Reactive Protein 51.6 mg/L H mg/L (0.0-4.9) Total Protein 6.3 g/dL L g/dL (6.6-8.7) Albumin 3.7 g/dL g/dL (3.5-5.2) Globulin 2.6 g/dL g/dL (1.3-4.6) Serum Ketones Negative (Negative) 10/23/21 17:30 WBC RBC Hgb Hct MCV MCH MCHC RDW Plt Count MPV Neut % (Auto) Lymph % (Auto) Waldo % (Auto) Eos % (Auto) Baso % (Auto) Neut # (Auto) Lymph # (Auto) Waldo # (Auto) Eos # (Auto) Baso # (Auto) Nucleated RBC % (a uto) Nucleated RBCs # Sodium Potassium Chloride Carbon Dioxide Anion Gap BUN Creatinine GFR Calculation Glucose Estimat Average Gl ucose 255 Hemoglobin A1c 10.5 % H % (4.0-6.0) Calculated Osmolal ity Calcium Total Bilirubin AST ALT Alkaline Phosphata se C-Reactive Protein Total Protein Albumin Globulin Serum Ketones Discharge Plan Discharge Patient Disposition: Admitted As Inpatient Admit Provider: Nany Darnell Clinical Impression: Venous insufficiency (chronic) (peripheral) Cellulitis Qualifiers: Site of cellulitis: extremity Site of cellulitis of extremity: lower extremity Laterality: unspecified laterality Qualified Code(s): L03.119 - Cellulitis of unspecified part of limb Condition: Stable Discharge Diet: Cardiac Discharge Activity: Resume usual activity Sign Out Sign Out Data: Patient Sign Out occurred on 10/23/21 at 23:32. Patient's care was discussed, and care was transferred from to Abebe Clayton MD. Coding Level of Care Code ED Traffic Sign Erection Supervisor for German Fwd Exam Comprehensive
[2021-10-23] MEDS: vancomycin 1,000 MG in sodium chloride 0.9% 250 ML 250 MG IV (21:35)
[2021-10-23] MEDS: insulin lispro 100 unit/1 mL 10 UNIT SUBCUT ×2 (21:39→22:54)
[2021-10-23 22:22] VITALS: BP 125/91; PULSE 98; RESP 18; O2SAT 98
[2021-10-23 22:42] LABS: Glucose Point of Care 456 mg/dL (70-110)
[2021-10-23] MEDS: cefTRIAXone 1,000 MG in sodium chloride 0.9% (plus) 50 ML 100 MG IV (22:53)
[2021-10-23 23:36] VITALS: BP 112/59; PULSE 96; RESP 18; O2SAT 99
[2021-10-24] VITALS: BP 104/69; PULSE 93; RESP 23; TEMP 36.5; O2SAT 95
[2021-10-24 00:56] VITALS: BMI 72.5
[2021-10-24] MEDS: enoxaparin 40 mg/0.4 mL Syringe SUBCUT ×2 (01:21→22:43)
[2021-10-24 02:06] LABS: Glucose Point of Care 243 mg/dL (70-110)
[2021-10-24 04:00] VITALS: BP 100/65; PULSE 104; RESP 21; TEMP 37.1; O2SAT 91
--- NOTE | 2021-10-24 05:51 | PM.HP ---
Providers/Chief Complaint Admitting Physician: Nany Darnell MD Primary Care Provider: Jn Torres MD Chief Complaint: BLE WOUNDS: SENT BY DR VELA History of Present Illness Evangelina Velázquez is a 55 year old female morbid obesity, hypertension, venous insufficiency, severe lymphedema and trench foot, diabetes mellitus, recurrent cellulitis, peripheral artery disease s/p peripheral angiogram 01/2021 currently on medical management. SHe has been following with [facility] for worsening LE cellulitis and B/L wounds noted over the past month. She has been on outpatient treatment with po cipro, po ancef, po clindamycin since then without any relief in symptoms.She had superficial wound cx taken earlier this month which showed aeromonas and MSSA, also seen a [facility] ER earlier this month where wound cx had grp G strep. On 10/21 [facility] follow up she was having increased drainage and new ulcers developing over B/L feet with macerated appearance. Denies fever, chills Review of Systems General: Reports: 10 or more systems reviewed and unremarkable except in HPI and below Const: Denies: fever(s), chills or body aches Eyes: Denies: change in vision, blurry vision or photophobia ENMT: Reports: hoarseness; Denies: throat pain, enlarged tonsils, odynophagia or nasal congestion Card: Denies: chest pain, palpitations, irregular heart rhythm, edema, swelling of feet/ankles, lightheadedness, pre-syncope, dyspnea on exertion or orthopnea Resp: Denies: dyspnea, productive cough, non-productive cough, wheezing, stridor, pain on inspiration, change in phlegm color, hemoptysis or chest congestion GI: Denies: abdominal pain, nausea, vomiting, hematemesis, coffee ground emesis, dysphagia, heartburn, diarrhea, constipation, GI cramping, change in stool character, hematochezia or melena : Denies: flank pain, difficulty voiding, dysuria, urinary frequency, urinary urgency, urinary hesitancy or hematuria Musc: Denies: neck pain, back pain, extremity pain, joint swelling, joint warmth or deformity Neuro: Denies: headache(s), numbness in extremities, weakness in extremities, sensory changes, difficulty walking, frequent falls, dizziness, vertigo, behavioral changes, Slurred speech present or seizure-like activity Psych: Denies: anxiety, depression, suicidal ideation or homicidal ideation Endo: Denies: polyuria, polydipsia, tired all the time, cold intolerance or hot flashes Smason/Lymph: Denies: easy bruising or easy bleeding Medications/Allergies Home Medications Medication Instructions Recorded Confirmed Last Taken Type acetaminophen 300 mg-codeine 30 mg 1 tab PO Q8H PRN 12/04/20 03/27/21 02/18/21 08:00 History tablet acetazolamide 250 mg tablet 250 mg PO .every other day tab 12/04/20 03/27/21 02/18/21 08:00 History albuterol sulfate 90 mcg/actuation 2 puff INHALATION Q6H PRN 12/04/20 03/27/21 02/18/21 08:00 History aerosol inhaler cetirizine 10 mg tablet 10 mg PO DAILY 12/04/20 03/27/21 02/18/21 08:00 History fluticasone 250 mcg-salmeterol 50 1 inh INHALATION BID 12/04/20 03/27/21 02/18/21 08:00 History mcg/dose blistr powdr for inhalation insulin glargine 100 unit/mL (3 80 unit SUBCUT QAM ml 12/04/20 03/27/21 02/18/21 08:00 History mL) subcutaneous pen insulin lispro 100 unit/mL 27 unit SUBCUT TID ml 12/04/20 03/27/21 02/18/21 18:00 History subcutaneous pen linezolid 600 mg tablet 600 mg PO BID 12/04/20 03/27/21 02/18/21 08:00 History lisinopril 20 mg tablet 20 mg PO DAILY 12/04/20 03/27/21 02/19/21 05:00 History meloxicam 7.5 mg tablet 7.5 mg PO BID PRN tab 12/04/20 10/24/21 10/23/21 21:00 History montelukast 10 mg tablet 10 mg PO DAILY 12/04/20 03/27/21 02/18/21 08:00 History omeprazole 20 mg capsule,delayed 20 mg PO BID 12/04/20 10/24/21 10/23/21 08:00 History release pentoxifylline 400 mg 400 mg PO DAILY tab 12/04/20 03/27/21 02/18/21 08:00 History tablet,extended release vitamin with calcium 1 tab PO DAILY 12/04/20 03/27/21 02/18/21 08:00 History no.72-iron 27 mg-folic acid 1 mg tablet aspirin 81 mg PO BID 02/19/21 03/27/21 02/19/21 05:00 History Allergies Allergy/AdvReac Type Severity Reaction Status Date / Time diphth,pert(acell),tetan,polio Allergy Unknown Unknown Verified 12/04/20 08:44 vacc,component 1of2 [From Pentacel DTaP-IPV Compnt (PF)] Penicillins Allergy Unknown Unknown Verified 12/04/20 08:44 PFSH Acute PFSH: Medical History (Updated 10/24/21 @ 06:06 by Nany Darnell MD) Arthritis Crohn's disease Diabetes mellitus HTN (hypertension) IBS (irritable bowel syndrome) Migraine Peripheral arterial occlusive disease Surgical wound dehiscence Venous insufficiency (chronic) (peripheral) Surgical History (Updated 10/24/21 @ 06:03 by Nany Darnell MD) History of dental surgery S/P cataract extraction S/P cholecystectomy Family History Father Diabetes Heart disease Stroke Other Chronic kidney disease (CKD) Hypertension Seizures Social History Smoking and tobacco status: current every day smoker cigarettes Packs smoked per day: 10 Years cigarettes smoked: 15 Vitals/I&O/Wt Last Vital Signs Temp 98.8 F 10/24/21 04:00 Pulse 104 H 10/24/21 04:00 Resp 21 H 10/24/21 04:00 BP 100/65 10/24/21 04:00 Pulse Ox 91 10/24/21 04:00 10/23/21 10/23/21 10/24/21 14:59 22:59 06:59 Intake Total 300 / 300 Balance 300 / 300 Weight last 48 hrs Weight 179.804 kg Weight 131.542 kg Physical Exam Narrative: EXAM NARRATIVE: General: No acute distress, AO x3 HEENT: PERRLA, pupils bilaterally equal and reactive, pallors not present Chest: Normal vesicular breath sounds, no added sounds, equal good air entry bilaterally CVS: S1-S2 regular, no murmurs, no tachycardia, no gallops, no rubs Abdomen: Soft, nontender, no organomegaly, bowel sounds present Neuro: No focal deficits, no facial deformity, AO x3, power 5/5 in all limbs ext: multiple B/L LE wounds of varying depth and size, diabetic foot infection, extensive drainage Data : 10/23/21 17:30 10/23/21 17:30 Micro: Microbiology 10/23/21 20:29 Blood Culture - Preliminary Blood SPECIMEN COLLECTED 10/23/21 20:27 Blood Culture - Preliminary Blood SPECIMEN COLLECTED A&P Assessment and plan (1) Cellulitis: Diabetic foot ulcers, chronic lymaedema, worsening cellultis over the past month in spite of trial multiple courses if po abx as outpatient along with care at [facility] Admit for iv abx Start cefepime 2g iv q12h and vancomycin to be dosed by levelsfor broad spectrum coverage Most recent superficial cx with Aeromonas, MSSA, grp G strep blood cx taken prior to starting abx wound care consult in am Status: Acute Qualifiers: Laterality: unspecified laterality Site of cellulitis: extremity Site of cellulitis of extremity: lower extremity Qualified Code(s): L03.119 - Cellulitis of unspecified part of limb (2) Venous insufficiency (chronic) (peripheral): Status: Acute (3) Peripheral arterial occlusive disease: Status: Acute (4) Diabetes mellitus: Uncontrolled DM: Insulin high dose sliding scale, lantus 80U in am, 27 U lispro pre meals Status: Acute Attestations Medical Necessity Statement*: >2midnight admission anticipated for above defined care Coding Level of Care Code Acute Pay Station Department Manager for [facility] Diagnoses Cellulitis L03.119 Laterality: unspecified laterality Site of cellulitis: extremity Site of cellulitis of extremity: lower extremity Venous insufficiency (chronic) (peripheral) I87.2 Peripheral arterial occlusive disease I77.9 Diabetes mellitus E11.9
[2021-10-24 06:29] LABS: Glucose Point of Care 306 mg/dL (70-110)
[2021-10-24 08:00] VITALS: BP 147/52; PULSE 104; RESP 24; TEMP 36.6; O2SAT 90
[2021-10-24] MEDS: insulin glargine 100 units/1 mL 80 UNIT SUBCUT (09:09)
[2021-10-24] MEDS: insulin lispro 100 unit/1 mL 27 UNIT SUBCUT ×2 (09:09→16:19)
[2021-10-24] MEDS: cetirizine 10 mg Tablet PO (09:10)
[2021-10-24] MEDS: pantoprazole DR 40 mg Tablet PO (09:10)
[2021-10-24] MEDS: aspirin 81 mg EC Tablet PO ×2 (09:10→17:37)
[2021-10-24] MEDS: lisinopril 20 mg Tablet PO (09:10)
[2021-10-24] MEDS: insulin lispro 100 unit/1 mL SUBCUT ×3 (09:10→17:36)
--- NOTE | 2021-10-24 09:10 | PC.PHAR ---
pt states she takes care of her own medications-
[2021-10-24 09:20] LABS: Estmated Average Glucose 255; Hemoglobin A1C 10.5 % (4.0-6.0)
--- NOTE | 2021-10-24 10:20 | PC.CHAP ---
Pastoral Care Encounter/Spiritual Assessment Type of Contact [] Declined mosaicist visit [] Patient/Family/Request visit [] Outpatient visit [] Follow-up visit [] Physician referral [] Code/Alert [x] Routine visit [] Staff referral [] Actively dying [] Patient sleeping [] Family support [] [] Out of room [] Palliative care [] [x] Receiving care in room [] Pre-surgical visit [] Trauma [x] Long length of stay [] ICU visit [] Other: Relational/Emotional Strength [] Patient feels connected with others/family/visitors/staff [x] Distress [] Loneliness/isolation [] Abandonment Spirituality of Patient [x] Person of Ping [] Attends Taoist of their Ping [x] Believes in Prayer [] Reads Bible or Hindu materials [] There are Spiritual issues to be addressed Biology Department Chair Interventions [] Prayer [] Active listening [] Non-anxious presence [] Spiritual/emotional support [] Crisis/trauma care [] Spiritual counseling [] Bereavement support [] Provided bereavement packet [] Provided Bible/devotional materials [] Provided toy/stuffed animal, coloring book to patient or family member [] Provided Communion [] Anointing/[place] [] Salvation [] Completed spiritual assessment [] Other: Impact on Illness or Injury [] Angry [] Fearful [] Anxious [] Often cries [] Exhaustion [] Unable to work [] Unable to attend congregation [] Unable to walk/stand [] Unable to read [] Unable to drive [] Unable to eat/drink [] Unable to sleep [] Unable to be with family [] Patient intubated [] Other: Summary unable to communicate or know about his health Time spent with patient 5 mins
[2021-10-24 11:01] LABS: Glucose Point of Care 327 mg/dL (70-110)
[2021-10-24 11:32] VITALS: BP 120/67; PULSE 96; RESP 22; TEMP 37; O2SAT 90
[2021-10-24] MEDS: acetaZOLAMIDE 250 mg Tablet PO (11:53)
[2021-10-24] MEDS: vancomycin 1,500 MG/300 ML PIGGYBACK 200 MG IV ×2 (11:53→22:43)
--- NOTE | 2021-10-24 13:31 | PM.PN ---
Subjective Subjective: Interval history: Patient was seen this morning, she tells me that she has had increased swelling of her bilateral extremities, she was sent over from wound care for concerns for worsening cellulitis, Vitals/I&O/Wt Last Vital Signs Temp 98.6 F 10/24/21 11:32 Pulse 96 10/24/21 11:32 Resp 22 H 10/24/21 11:32 BP 120/67 10/24/21 11:32 Pulse Ox 90 10/24/21 11:32 10/23/21 10/24/21 10/24/21 22:59 06:59 14:59 Intake Total 300 / 300 240 / 240 Balance 300 / 300 240 / 240 Weight last 48 hrs Weight 179.804 kg Weight 131.542 kg Physical Exam Const: COMMON NORMALS: no acute distress and patient oriented x3 Resp: COMMON NORMALS: normal respiratory effort, No retractions, No use of accessory muscles and clear to auscultation bilaterally AUSCULTATION: clear to auscultation bilaterally Cardio: COMMON NORMALS: regular rate, regular rhythm, S1 normal heart sound present and S2 normal heart sound present RATE: regular rate RHYTHM: regular rhythm HEART SOUNDS: S1 normal heart sound present and S2 normal heart sound present GI: COMMON NORMALS: Normal to inspection, nondistended, normoactive bowel sounds present and Soft to palpation PALPATION: Yes Soft to palpation Extremity: NARRATIVE EXTREMITY EXAM: Bilateral lower extremities 1+ pitting edema Bilateral lower extremities, erythema, swelling, edema, just below the level of the knee joint, extending to distal ankle, Left foot, second digit, Neuro: COMMON NORMALS: patient oriented x3 Psych: COMMON NORMALS: mental status grossly normal Data : 10/25/21 05:11 10/25/21 05:11 Micro: Microbiology 10/24/21 05:10 MRSA Culture - Final Nose 10/23/21 20:29 Blood Culture - Preliminary Blood SPECIMEN COLLECTED 10/23/21 20:27 Blood Culture - Preliminary Blood SPECIMEN COLLECTED A&P Assessment and plan (1) Cellulitis: Diabetic foot ulcers, chronic lymaedema, worsening cellultis over the past month in spite of trial multiple courses if po abx as outpatient along with care at [facility] Admit for iv abx Start cefepime 2g iv q12h and vancomycin to be dosed by levelsfor broad spectrum coverage Most recent superficial cx with Aeromonas, MSSA, grp G strep blood cx taken prior to starting abx wound care consult in am Status: Acute Qualifiers: Laterality: unspecified laterality Site of cellulitis: extremity Site of cellulitis of extremity: lower extremity Qualified Code(s): L03.119 - Cellulitis of unspecified part of limb (2) Venous insufficiency (chronic) (peripheral): Status: Acute (3) Peripheral arterial occlusive disease: Status: Acute (4) Diabetes mellitus: Uncontrolled DM: Insulin high dose sliding scale, lantus 80U in am, 27 U lispro pre meals Status: Acute Attestations Medical Necessity Statement*: Patient requires hospitalization, inpatient, for cellulitis bilateral extremities Coding Level of Care Code Acute Bridges [employer] Buildings Supervisor for Chg Fwd Exam Detailed Diagnoses Cellulitis L03.119 Laterality: unspecified laterality Site of cellulitis: extremity Site of cellulitis of extremity: lower extremity Venous insufficiency (chronic) (peripheral) I87.2 Peripheral arterial occlusive disease I77.9 Diabetes mellitus E11.9
[2021-10-24 16:00] VITALS: BP 126/67; PULSE 94; RESP 20; TEMP 36.7; O2SAT 90
[2021-10-24 17:42] LABS: Glucose Point of Care 141 mg/dL (70-110)
[2021-10-24 19:47] VITALS: BP 97/58; PULSE 90; RESP 21; TEMP 36.9; O2SAT 92
[2021-10-24 20:30] LABS: Glucose Point of Care 106 mg/dL (70-110)
[2021-10-25] VITALS (7 sets, daily range): BP systolic 106–149; BP diastolic 54–75; PULSE 71–107; RESP 16–24; TEMP 36.5–37.3; O2SAT 90–97
[2021-10-25 05:46] LABS: Basophils # 0.1 10^3/uL (0.0-0.1); Basophils % 0.8 %; Eosinophils # 0.2 10^3/uL (0.0-0.8); Eosinophils % 1.5 %; Hematocrit 41.2 % (37.0-47.0); Hemoglobin 12.9 g/dL (11.5-15.3); Lymphocytes # 2.1 10^3/uL (0.8-4.8); Lymphocytes % 15.9 %; Mean Corpuscular HGB Conc 31.3 g/dL (30.0-36.0); Mean Corpuscular Hemoglobin 28.5 pg (28.0-34.0); Mean Corpuscular Volume 90.9 fl (81-99); Mean Platelet Volume 10.4 fL (7.4-10.4); Monocytes # 1.2 10^3/uL (0.2-0.9); Monocytes % 8.8 %; Neutrophils % 71.8 %; Nucleated Red Blood Cells % 0 %; Platelet Count 284 10^3/cmm (130-400); Red Blood Count 4.53 10^6/uL (4.1-5.3); Red Cell Distribution Width 15.5 % (12.1-15.1); White Blood Count 13.3 10^3/uL (4.0-10.0)
[2021-10-25 06:24] LABS: Alanine Aminotransferase 14 U/L (0-33); Albumin Level 3.1 g/dL (3.5-5.2); Alkaline Phosphatase 114 IU/L (35-105); Anion Gap 15.6 (5-19); Aspartate Amino Transferase 12 U/L (0-32); Blood Urea Nitrogen 36 mg/dL (6-20); Calcium 8.1 mg/dL (8.5-10.5); Carbon Dioxide 20 mmol/L (22-29); Chloride 102 mmol/L (98-107); Globulin 2.8 g/dL (1.3-4.6); Glomerular Filtration Rate 57.1 mL/min (90-130); Glucose 203 mg/dL (65-115); Magnesium 2.3 mg/dL (1.7-2.3); Osmolality Calculated 290 mOsm/kg (285-295); Phosphorus 3.5 mg/dL (2.5-4.5); Potassium 4.6 mmol/L (3.5-5.1); Sodium 133 mmol/L (136-145); Total Bilirubin 0.3 mg/dL (0.15-1.2); Total Protein 5.9 g/dL (6.6-8.7)
[2021-10-25 06:39] LABS: Glucose Point of Care 259 mg/dL (70-110)
[2021-10-25] MEDS: insulin glargine 100 units/1 mL 80 UNIT SUBCUT (06:51)
[2021-10-25 06:56] LABS: NT Pro B Type Natriuretic Pept 428 pg/mL (0-125)
[2021-10-25] MEDS: pantoprazole DR 40 mg Tablet PO (09:07)
[2021-10-25] MEDS: aspirin 81 mg EC Tablet PO ×2 (09:07→18:22)
[2021-10-25] MEDS: insulin lispro 100 unit/1 mL SUBCUT ×2 (09:07→12:58)
[2021-10-25] MEDS: cetirizine 10 mg Tablet PO (09:07)
[2021-10-25] MEDS: insulin lispro 100 unit/1 mL 27 UNIT SUBCUT ×2 (09:07→15:56)
[2021-10-25] MEDS: lisinopril 20 mg Tablet PO (09:08)
[2021-10-25 10:12] LABS: Vancomycin Trough 14.3 ug/mL (10-15)
[2021-10-25 12:05] LABS: Glucose Point of Care 214 mg/dL (70-110)
[2021-10-25] MEDS: FUROsemide 10 mg/mL SDV 4mL 40 MG IVP (14:02)
[2021-10-25] MEDS: vancomycin 1,500 MG/300 ML PIGGYBACK 200 MG IV (14:02)
--- NOTE | 2021-10-25 14:51 | P.CONIM_ITS ---
Providers/Reason For Consult Consulting Physician/Specialty*: Kushal Benitez D.P.M. Reason for Consult*: Bilateral venous insufficiency ulceration and cellulitis Attending Physician: Robert Jacinto MD Primary Care Provider: Jn Torres MD History of Present Illness History of Present Illness Evangelina Velázquez is a 55 year old insulin-dependent diabetic female with morbid obesity admitted to the hospital service for IV antibiotics therapy secondary to bilateral leg ulcers with cellulitis. Patient is known to wound care clinic was referred to the ED from wound care. Previous wound cultures significant for MSSA and Aeromonas as well as group G strep. Patient has history of peripheral arterial disease with arterial sclerosis, status post peripheral angiogram done in January 2021. Previous oral antibiotics outpatient have included Clinda, Cipro and Ancef. Review of Systems General: Reports: 10 or more systems reviewed and unremarkable except in HPI and below Const: Denies: fever(s) or chills Card: Denies: chest pain or palpitations Resp: Denies: productive cough GI: Denies: abdominal pain, nausea or vomiting : Denies: flank pain Musc: Reports: extremity swelling, joint pain, joint stiffness, limited range of motion and deformity Skin/Breast: Reports: erythema, skin tenderness, sores, nail changes and change in hair; Denies: rash Neuro: Reports: numbness in extremities, sensory changes and difficulty walking Psych: Denies: suicidal ideation Samson/Lymph: Denies: easy bruising Meds/Allergies Home Medications and Allergies Home Medications Medication Instructions Recorded Confirmed Last Taken Type albuterol sulfate 90 mcg/actuation 2 puff INHALATION Q6H PRN 12/04/20 10/24/21 02/18/21 08:00 History aerosol inhaler cetirizine 10 mg tablet 10 mg PO QAM 12/04/20 10/24/21 02/18/21 08:00 History fluticasone 250 mcg-salmeterol 50 1 inh INHALATION BID 12/04/20 10/24/21 02/18/21 08:00 History mcg/dose blistr powdr for inhalation lisinopril 20 mg tablet 20 mg PO QAM 12/04/20 10/24/21 02/19/21 05:00 History meloxicam 7.5 mg tablet 7.5 mg PO BID PRN tab 12/04/20 10/24/21 02/18/21 08:00 History montelukast 10 mg tablet 10 mg PO DAILY 12/04/20 10/24/21 02/18/21 08:00 History omeprazole 20 mg capsule,delayed 20 mg PO BID 12/04/20 10/24/21 02/18/21 08:00 History release vitamin with calcium 1 tab PO DAILY 12/04/20 10/24/21 02/18/21 08:00 History no.72-iron 27 mg-folic acid 1 mg tablet aspirin [Aspir-81] 81 mg PO BID 10/24/21 10/24/21 Unknown History furosemide 40 mg PO QAM 10/24/21 10/24/21 Unknown History gentamicin See Rx Instructions .ROUTE .COMPLEX 10/24/21 10/24/21 Unknown History insulin glargine [Lantus Solostar 80 unit SUBCUT BEDTIME 10/24/21 10/24/21 Unknown History U-100 Insulin] insulin lispro [Humalog U-100 27 unit SUBCUT .BEFORE MEALS 10/24/21 10/24/21 Unknown History Insulin] Allergies Allergy/AdvReac Type Severity Reaction Status Date / Time diphth,pert(acell),tetan,polio Allergy Unknown Unknown Verified 12/04/20 08:44 vacc,component 1of2 [From Pentacel DTaP-IPV Compnt (PF)] Penicillins Allergy Unknown Unknown Verified 12/04/20 08:44 Current Medications Current Medications Generic Name Dose Route Start Last Admin Trade Name Freq PRN Reason Stop Dose Admin Acetazolamide 250 mg 10/24/21 10:00 10/24/21 11:53 Acetazolamide 250 Mg Tablet PO 250 mg Q48H YEE Administration Aspirin 81 mg 10/24/21 09:00 10/25/21 09:07 Aspirin 81 Mg Ec Tablet PO 81 mg BID YEE Administration Cetirizine HCl 10 mg 10/24/21 09:00 10/25/21 09:07 Cetirizine 10 Mg Tablet PO 10 mg DAILY YEE Administration Enoxaparin Sodium 40 mg 10/23/21 23:30 10/24/21 22:43 Enoxaparin 40 Mg/0.4 Ml Syringe SUBCUT 40 mg Q24H YEE Administration Gentamicin Sulfate 1 applic 10/25/21 09:00 10/25/21 09:08 Gentamicin 0.1% Cream 15 Gm TOPICAL 1 applic DAILY YEE Administration Vancomycin/PEG/NADA/Lysine/Water 1,500 mg in 300 mls @ 200 mls/hr 10/24/21 10:30 10/25/21 14:02 Vancocin IV 10/25/21 15:30 200 mls/hr Q12H YEE Administration Insulin Glargine 80 unit 10/24/21 06:00 10/25/21 06:51 Insulin Glargine 100 Units/1 Ml SUBCUT 80 unit QAM YEE Administration Insulin Human Lispro 0 unit 10/24/21 08:00 10/25/21 12:58 Insulin Lispro 100 Unit/1 Ml SUBCUT 8 unit WM&BEDTIME YEE Administration Protocol Insulin Human Lispro 27 unit 10/24/21 09:00 10/25/21 09:07 Insulin Lispro 100 Unit/1 Ml SUBCUT 27 unit TID YEE Administration Lisinopril 20 mg 10/24/21 09:00 10/25/21 09:08 Lisinopril 20 Mg Tablet PO 20 mg DAILY YEE Administration Pantoprazole Sodium 40 mg 10/24/21 09:00 10/25/21 09:[address] 40 Mg Tablet PO 40 mg DAILY YEE Administration PFSH Acute PFSH: Medical History (Updated 10/26/21 @ 08:13 by Kushal Benitez DPM) Arthritis Crohn's disease Diabetes mellitus HTN (hypertension) IBS (irritable bowel syndrome) Migraine Peripheral arterial occlusive disease Surgical wound dehiscence Venous insufficiency (chronic) (peripheral) Surgical History (Updated 10/24/21 @ 06:03 by Nany Darnell MD) History of dental surgery S/P cataract extraction S/P cholecystectomy Family History Father Diabetes Heart disease Stroke Other Chronic kidney disease (CKD) Hypertension Seizures Social History Smoking and tobacco status: current every day smoker cigarettes Packs smoked per day: 10 Years cigarettes smoked: 15 Vitals/I&O/Wt Last Vital Signs Temp 97.9 F 10/25/21 12:05 Pulse 92 10/25/21 12:05 Resp 18 10/25/21 12:05 BP 149/75 10/25/21 12:05 Pulse Ox 94 10/25/21 12:05 10/24/21 10/25/21 10/25/21 22:59 06:59 14:59 Intake Total 1020 / 1900 500 / 2400 480 / 480 Balance 1020 / 1900 500 / 2400 480 / 480 Weight last 48 hrs Weight 396 lb 6.4 oz Weight 290 lb Physical Exam Narrative: EXAM NARRATIVE: GENERAL: Patient is alert and oriented ?3 and in no acute distress. The following is a focused bilateral lower extremity exam. VASCULAR: Dorsalis pedis palpable bilaterally, posterior tibial arteries palpable. Capillary refill time less than 5 seconds to the distal hallux bilaterally. Calf is supple and nontender proximally and distally. Decreased pedal hair growth bilaterally. +2 pitting edema test at the lower one third of the anterior tibial crest bilaterally. No increased warmth to the bilateral extremities. NEUROLOGICAL: Protective sensation intact 5/10 sites, tested with [place] Tammi monofilament to bilateral feet. DERMATOLOGICAL: Active venous ulceration to the bilateral leg posteriorly, there is no purulent drainage, no lymphangitic streaking bilaterally. No increased warmth bilateral legs. There is chronic skin pigmentation changes consistent with hemosiderin deposit in a gaiter distribution to the bilateral lower legs. Stable appearing wound at the distal tuft of the left and right hallux measures 3 mm x 3 mm x 2 mm bilaterally. MUSCULOSKELETAL: No crepitus with palpation of soft tissue at the bilateral legs. Muscle strength 5 out of 5 in all 3 cardinal planes to the bilateral foot and ankle. Data Micro: Micro: Microbiology 10/23/21 20:29 Blood Culture - Pr eliminary Blood NEGATIVE TO PARESH E 10/23/21 20:27 Blood Culture - Pr eliminary Blood NEGATIVE TO PARESH E 10/24/21 05:10 MRSA Culture - Fin al Nose A&P Assessment and plan (1) Peripheral arterial occlusive disease: Status: Acute (2) Venous insufficiency (chronic) (peripheral): Status: Acute (3) Venous stasis ulcer of left lower extremity: Status: Acute (4) Diabetic peripheral neuropathy associated with type 2 diabetes mellitus: Status: Acute (5) Chronic ulcer of great toe of right foot with fat layer exposed: Status: Acute (6) Chronic ulcer of left foot with fat layer exposed: Status: Acute 55-year-old insulin-dependent diabetic female with active venous leg ulcers bilaterally. -Cellulitis resolved with IV antibiotics, responding well to vancomycin and cefepime. -Leg wounds are superficial. No wound culture taken for this reason, would likely yield contaminant and superficial skin clarissa. -Wounds were debrided bedside and dressed with Maxorb AG, Unna boot, Kerlix, ABD pad and Vishal wrap bilaterally. -X-ray left and right foot to rule out any bony abnormality have a low suspicion of this, stable appearing with the distal hallux bilaterally. -Patient on medical management for lymphedema decongestive therapy. -Patient okay for discharge from podiatry standpoint, cellulitis resolved and wounds are stable appearing. -Moving forward she will require strict adherence to utilization of bilateral lower extremity short stretch lymphedema wraps, she lives at private residence with her mother who assists with her medical care. Follow-up in wound care clinic. Current lower extremity wraps applied 10/25/[address] for 7 days. Coding Level of Care Code Acute Maintenance Mechanic Engine for Chg Fwd Diagnoses Peripheral arterial occlusive disease I77.9 Venous insufficiency (chronic) (peripheral) I87.2 Venous stasis ulcer of left lower extremity I83.029; L97.929 Diabetic peripheral neuropathy associated with type 2 diabetes mellitus E11.42 Chronic ulcer of great toe of right foot with fat layer exposed L97.512 Chronic ulcer of left foot with fat layer exposed L97.522
[2021-10-25] MEDS: cefepime 2,000 MG in sodium chloride 0.9% (plus) 50 ML 100 MG IV (16:48)
[2021-10-25 17:05] LABS: Glucose Point of Care 103 mg/dL (70-110)
--- NOTE | 2021-10-25 17:06 | PM.PN ---
Subjective Subjective: Interval history: Patient was seen this morning, no fevers overnight, no chills, continues to have bilateral extremity swelling, erythema has improved, when lymphedema wraps were applied last night, she complains her diabetic ulcers, no drainage, but she is worried about them getting worse Vitals/I&O/Wt Last Vital Signs Temp 98.4 F 10/25/21 15:57 Pulse 86 10/25/21 15:57 Resp 18 10/25/21 15:57 BP 128/63 10/25/21 15:57 Pulse Ox 94 10/25/21 15:57 10/25/21 10/25/21 10/25/21 06:59 14:59 22:59 Intake Total 500 / 2400 480 / 480 300 / 780 Balance 500 / 2400 480 / 480 300 / 780 Weight last 48 hrs Weight 179.804 kg Physical Exam Const: COMMON NORMALS: no acute distress and patient oriented x3 Resp: COMMON NORMALS: normal respiratory effort, No retractions, No use of accessory muscles and clear to auscultation bilaterally AUSCULTATION: clear to auscultation bilaterally Cardio: COMMON NORMALS: regular rate, regular rhythm, S1 normal heart sound present and S2 normal heart sound present RATE: regular rate RHYTHM: regular rhythm HEART SOUNDS: S1 normal heart sound present and S2 normal heart sound present GI: COMMON NORMALS: Normal to inspection, nondistended, normoactive bowel sounds present, Soft to palpation and non-tender PALPATION: Yes Soft to palpation Extremity: NARRATIVE EXTREMITY EXAM: Bilateral lower extremities 1+ pitting edema Bilateral lower extremities, erythema, swelling, edema, just below the level of the knee joint, extending to distal ankle, Neuro: COMMON NORMALS: patient oriented x3 Psych: COMMON NORMALS: mental status grossly normal Data : 10/25/21 05:11 10/25/21 05:11 Micro: Microbiology 10/23/21 20:29 Blood Culture - Preliminary Blood NEGATIVE TO DATE 10/23/21 20:27 Blood Culture - Preliminary Blood NEGATIVE TO DATE A&P Assessment and plan (1) Cellulitis: Diabetic foot ulcers, chronic lymaedema, worsening cellultis over the past month in spite of trial multiple courses if po abx as outpatient along with care at [facility] Admit for iv abx Continue cefepime 2g iv q12h and vancomycin to be dosed by levels for broad spectrum coverage Most recent superficial cx with Aeromonas, MSSA, grp G strep blood cx taken prior to starting abx Consult podiatry Lymphedema wraps We will give Lasix 1 dose for bilateral extremity edema Status: Acute Qualifiers: Laterality: unspecified laterality Site of cellulitis: extremity Site of cellulitis of extremity: lower extremity Qualified Code(s): L03.119 - Cellulitis of unspecified part of limb (2) Venous insufficiency (chronic) (peripheral): Status: Acute (3) Peripheral arterial occlusive disease: Peripheral angiogram 02/2021 showed Conclusions Indication for peripheral angiogram: Lifestyle limiting claudicationAbdominal aortic angiogram: NormalRight renal artery: NormalLeft renal artery not well visualized due to insufficient injectionRight and left common iliac vessels: NormalRight and left external and internal iliac vessels: NormalRight and left common femoral artery: NormalRight and left profundofemoral artery: Normal Right and left SFA: Normal Right and left popliteal artries: NormalRight and left tibioperoneal trunk: NormalRight and left anterior tibial vessel no significant stenosis except distal anterior tibial and the right foot while making the arch vessel has eccentric lesion which is moderate but since it has a dual supply it may not affect much therefore left aloneRight and left posterior tibial arteries normalRight and left peroneal arteries luminal irregularities . Recommendations Continue current medical management and risk factor modification. Follow up with PCP as directed. 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
[2021-10-25 20:57] LABS: Glucose Point of Care 127 mg/dL (70-110)
[2021-10-25] MEDS: enoxaparin 40 mg/0.4 mL Syringe SUBCUT (22:34)
[2021-10-26] MEDS: vancomycin 1,500 MG/300 ML PIGGYBACK 200 MG IV (01:01)
[2021-10-26] MEDS: cefepime 2,000 MG in sodium chloride 0.9% (plus) 50 ML 100 MG IV (03:01)
[2021-10-26 03:58] VITALS: BP 128/65; PULSE 84; RESP 22; TEMP 36.6; O2SAT 90
[2021-10-26 05:35] LABS: Basophils # 0.1 10^3/uL (0.0-0.1); Basophils % 0.9 %; Eosinophils # 0.3 10^3/uL (0.0-0.8); Eosinophils % 2.2 %; Hematocrit 40.2 % (37.0-47.0); Hemoglobin 12.1 g/dL (11.5-15.3); Lymphocytes # 2.3 10^3/uL (0.8-4.8); Lymphocytes % 17.3 %; Mean Corpuscular HGB Conc 30.1 g/dL (30.0-36.0); Mean Corpuscular Hemoglobin 27.6 pg (28.0-34.0); Mean Corpuscular Volume 91.6 fl (81-99); Monocytes # 1.1 10^3/uL (0.2-0.9); Monocytes % 8.1 %; Neutrophils # 9.24 10^3/uL (1.8-7.7); Neutrophils % 70.4 %; Nucleated Red Blood Cells % 0 %; Platelet Count 269 10^3/cmm (130-400); Red Blood Count 4.39 10^6/uL (4.1-5.3); Red Cell Distribution Width 15.3 % (12.1-15.1); White Blood Count 13.2 10^3/uL (4.0-10.0)
[2021-10-26 06:15] LABS: Alanine Aminotransferase 16 U/L (0-33); Albumin Level 2.8 g/dL (3.5-5.2); Alkaline Phosphatase 113 IU/L (35-105); Aspartate Amino Transferase 17 U/L (0-32); Blood Urea Nitrogen 36 mg/dL (6-20); Carbon Dioxide 21 mmol/L (22-29); Chloride 100 mmol/L (98-107); Globulin 3.1 g/dL (1.3-4.6); Glomerular Filtration Rate 64.5 mL/min (90-130); Glucose 115 mg/dL (65-115); Magnesium 2.3 mg/dL (1.7-2.3); NT Pro B Type Natriuretic Pept 259 pg/mL (0-125); Osmolality Calculated 287 mOsm/kg (285-295); Phosphorus 4.3 mg/dL (2.5-4.5); Sodium 134 mmol/L (136-145); Total Bilirubin 0.3 mg/dL (0.15-1.2); Total Protein 5.9 g/dL (6.6-8.7)
[2021-10-26 06:20] LABS: Anion Gap 17.1 (5-19); Potassium 4.1 mmol/L (3.5-5.1)
[2021-10-26 06:45] LABS: Glucose Point of Care 136 mg/dL (70-110)
[2021-10-26 07:45] VITALS: BP 103/62; PULSE 90; RESP 18; TEMP 36.5; O2SAT 95
--- NOTE | 2021-10-26 07:48 | XRR_ITS ---
PROCEDURE INFORMATION: Exam: XR Left Foot Exam date and time: 10/26/2021 7:48 AM Age: 55 years old Clinical indication: Condition or disease; Other: Wound left distal hallux TECHNIQUE: Imaging protocol: XR Left foot. Views: 3 or more views. Total images: 3 COMPARISON: No relevant prior studies available. FINDINGS: Bones/joints: Overlying cast material obscures fine bone detail. No acute fracture nor subluxation. No osseous erosion nor periosteal reaction. Soft tissues: Normal. XR/XR foot LT min 3V* [id number] IMPRESSION: 1. Overlying cast material obscures fine bone detail. 2. No acute osseous pathology. Radiation Dose CTDIVOL = (mGy): DLP = (mGy-cm)
--- NOTE | 2021-10-26 07:48 | XRR_ITS ---
PROCEDURE INFORMATION: Exam: XR Right Foot Exam date and time: 10/26/2021 7:48 AM Age: 55 years old Clinical indication: Condition or disease; Other: Wound right distal hallux TECHNIQUE: Imaging protocol: XR Right foot. Views: 3 or more views. Total images: 3 COMPARISON: No relevant prior studies available. FINDINGS: Bones/joints: Overlying cast material obscures fine bone detail. A heel spur is present. No acute fracture nor subluxation. No osseous erosion nor periosteal reaction. Soft tissues: Normal. XR/XR foot RT min 3V* [id number] IMPRESSION: 1. Overlying cast material obscures fine bone detail. 2. No acute osseous pathology. Radiation Dose CTDIVOL = (mGy): DLP = (mGy-cm)
[2021-10-26] MEDS: acetaZOLAMIDE 250 mg Tablet PO (09:25)
[2021-10-26] MEDS: cetirizine 10 mg Tablet PO (09:25)
[2021-10-26] MEDS: aspirin 81 mg EC Tablet PO (09:25)
[2021-10-26] MEDS: lisinopril 20 mg Tablet PO (09:25)
[2021-10-26] MEDS: pantoprazole DR 40 mg Tablet PO (09:25)
[2021-10-26 10:58] VITALS: BP 103/62; PULSE 90; RESP 18; TEMP 36.5; O2SAT 95
[2021-10-26 11:04] LABS: Glucose Point of Care 439 mg/dL (70-110)
[2021-10-26 11:38] VITALS: BP 119/73; PULSE 83; RESP 18; TEMP 36.3; O2SAT 96
[2021-10-26] MEDS: insulin lispro 100 unit/1 mL SUBCUT (11:43)
--- NOTE | 2021-10-26 11:57 | PM.DCS ---
Discharge Providers Date of Admission: 10/23/21 22:10 Date of Discharge: October 26, 2021 Attending Provider at Admission: Nany Darnell MD Attending Provider at Discharge: Robert Jacinto MD Primary Care Provider: Jn Torres MD Diagnoses at Discharge Discharge Diagnosis (1) Peripheral arterial occlusive disease: Status: Acute (2) Venous insufficiency (chronic) (peripheral): Status: Acute (3) Venous stasis ulcer of left lower extremity: Status: Acute (4) Diabetic peripheral neuropathy associated with type 2 diabetes mellitus: Status: Acute (5) Chronic ulcer of great toe of right foot with fat layer exposed: Status: Acute (6) Chronic ulcer of left foot with fat layer exposed: Status: Acute Reason for Visit Reason for Visit: BLE WOUNDS: SENT BY DR VELA [facility] Hospital Course This is a 55-year-old female with a past medical history of morbid obesity, insulin-dependent type 2 diabetes mellitus, bilateral extremity edema, lymphedema, chronic ulcers bilateral lower extremities, diabetic peripheral neuropathy, venous stasis ulcers, who presents to [facility] for concerns for cellulitis of bilateral lower extremities Patient was admitted to [facility] for cellulitis of bilateral lower extremities, was placed on broad-spectrum antibiotic therapy, podiatry was consulted, wounds were debrided bedside, patient clinically improved. Patient will be discharged on doxycycline and cefdinir for 7 remaining days, lymphedema wraps, follow-up with wound care as outpatient. Physical Exam Const: COMMON NORMALS: no acute distress and patient oriented x3 Resp: COMMON NORMALS: normal respiratory effort, No retractions, No use of accessory muscles and clear to auscultation bilaterally AUSCULTATION: clear to auscultation bilaterally Cardio: COMMON NORMALS: regular rate, regular rhythm, S1 normal heart sound present and S2 normal heart sound present RATE: regular rate RHYTHM: regular rhythm HEART SOUNDS: S1 normal heart sound present and S2 normal heart sound present GI: COMMON NORMALS: Normal to inspection, nondistended, normoactive bowel sounds present, Soft to palpation and non-tender PALPATION: Yes Soft to palpation Extremity: COMMON NORMALS: no pedal edema Neuro: COMMON NORMALS: patient oriented x3 Psych: COMMON NORMALS: mental status grossly normal Skin: NARRATIVE SKIN EXAM: Bilateral lower extremity lymphedema wraps Discharge Data Data Completed and Pending: Completed Studies During Hospitalization Category Date Time Status XR foot LT min 3V * [id number] Routine Exams 10/26/21 07:48 Completed XR foot RT min 3V * [id number] Routine Exams 10/26/21 07:48 Completed Pending at discharge Category Date Time Status Blood Culture Sta t Lab 10/23/21 20:29 Results Complete Blood Co unt w/Auto AM LABS Lab 10/27/21 04:00 Ordered Comprehensive Met abolic Panel AM LA BS Lab 10/27/21 04:00 Ordered Magnesium AM LABS Lab 10/27/21 04:00 Ordered NT Pro B Type Liz riuretic Pept QAM Lab 10/27/21 06:00 Ordered Phosphorus AM LAB S Lab 10/27/21 04:00 Ordered Labs from last 24 hours 10/26/21 10/26/21 10/26/21 10:57 06:35 03:12 WBC RBC Hgb Hct MCV MCH MCHC RDW Plt Count MPV Neut % (Auto) Lymph % (Auto) [place] % (Auto) Eos % (Auto) Baso % (Auto) Neut # (Auto) Lymph # (Auto) [place] # (Auto) Eos # (Auto) Baso # (Auto) Nucleated RBC % (a uto) Nucleated RBCs # Sodium Potassium Chloride Carbon Dioxide Anion Gap BUN Creatinine GFR Calculation Glucose POC Glucose 439 H 136 H Calculated Osmolal ity Calcium Phosphorus Magnesium Total Bilirubin AST ALT Alkaline Phosphata se NT-Pro-B Natriuret Pep Cancelled Total Protein Albumin Globulin 10/26/21 10/26/21 10/25/21 03:12 03:12 20:52 WBC 13.2 H RBC 4.39 Hgb 12.1 Hct 40.2 MCV 91.6 MCH 27.6 L MCHC 30.1 RDW 15.3 H Plt Count 269 MPV 11.0 H Neut % (Auto) 70.4 Lymph % (Auto) 17.3 [place] % (Auto) 8.1 Eos % (Auto) 2.2 Baso % (Auto) 0.9 Neut # (Auto) 9.24 H Lymph # (Auto) 2.3 [place] # (Auto) 1.1 H Eos # (Auto) 0.3 Baso # (Auto) 0.1 Nucleated RBC % (a uto) 0 Nucleated RBCs # 0.0 Sodium 134 L Potassium 4.1 Chloride 100 Carbon Dioxide 21 L Anion Gap 17.1 BUN 36 H Creatinine 0.9 GFR Calculation 64.5 L Glucose 115 POC Glucose 127 H Calculated Osmolal ity 287 Calcium 8.0 L Phosphorus 4.3 Magnesium 2.3 Total Bilirubin 0.3 AST 17 ALT 16 Alkaline Phosphata se 113 H NT-Pro-B Natriuret Pep 259 H Total Protein 5.9 L Albumin 2.8 L Globulin 3.1 10/25/21 10/25/21 17:02 12:02 WBC RBC Hgb Hct MCV MCH MCHC RDW Plt Count MPV Neut % (Auto) Lymph % (Auto) [place] % (Auto) Eos % (Auto) Baso % (Auto) Neut # (Auto) Lymph # (Auto) [place] # (Auto) Eos # (Auto) Baso # (Auto) Nucleated RBC % (a uto) Nucleated RBCs # Sodium Potassium Chloride Carbon Dioxide Anion Gap BUN Creatinine GFR Calculation Glucose POC Glucose 103 214 H Calculated Osmolal ity Calcium Phosphorus Magnesium Total Bilirubin AST ALT Alkaline Phosphata se NT-Pro-B Natriuret Pep Total Protein Albumin Globulin Vitals: Last Vital Signs Temp 97.4 F L 10/26/21 11:38 Pulse 83 10/26/21 11:38 Resp 18 10/26/21 11:38 BP 119/73 10/26/21 11:38 Pulse Ox 96 10/26/21 11:38 Discharge Plan Discharge Patient Disposition: Home Condition: Stable Prescriptions: New insulin lispro [Humalog U-100 Insulin] 100 unit/mL Solution 27 unit SUBCUT TID Qty: 1 RF: 0 Pentoxifylline 400 mg PO DAILY Qty: 1 RF: 1 cefdinir 300 mg capsule 300 mg PO BID 7 Days Qty: 14 RF: 0 acetazolamide 250 mg Tablet 250 mg PO Q48H Qty: 1 RF: 0 aspirin 81 mg Tablet,Delayed Release (Dr/Ec) 81 mg PO BID Qty: 1 RF: 0 Lantus U-100 Insulin 100 unit/mL Solution 80 unit SUBCUT QAM Qty: 1 RF: 0 doxycycline hyclate 100 mg tablet 100 mg PO BID 7 Days Qty: 14 RF: 0 Continued Vitamin Plus Low Iron 27 mg iron- 1 mg tablet 1 tab PO DAILY RF: 0 meloxicam 7.5 mg tablet 7.5 mg PO BID PRN (Reason: Pain) RF: 0 fluticasone propion-salmeterol [Advair Diskus] 250-50 mcg/dose blister with device 1 inh inhalation BID RF: 0 montelukast 10 mg tablet 10 mg PO DAILY RF: 0 omeprazole 20 mg capsule,delayed release(DR/EC) 20 mg PO BID RF: 0 cetirizine 10 mg tablet 10 mg PO QAM RF: 0 lisinopril 20 mg tablet 20 mg PO QAM RF: 0 albuterol sulfate [ProAir HFA] 90 mcg/actuation HFA aerosol inhaler 2 puff inhalation Q6H PRN (Reason: Shortness Of Breath) RF: 0 aspirin [Aspir-81] 81 mg Tablet,Delayed Release (Dr/Ec) 81 mg PO BID RF: 0 furosemide 20 mg tablet 40 mg PO QAM RF: 0 insulin lispro [Humalog U-100 Insulin] 100 unit/mL solution 27 unit SUBCUT .BEFORE MEALS RF: 0 gentamicin 0.1 % ointment See Rx Instructions .ROUTE .COMPLEX RF: 0 Lantus Solostar U-100 Insulin 100 unit/mL (3 mL) insulin pen 80 unit SUBCUT BEDTIME RF: 0 Discharge Orders: Discharge Order (Routine); Ordered 10/26/21 Ordered By: Robert Jacinto Referrals: Jn Torres MD [Primary Care Provider] - Discharge Diet: Cardiac Discharge Activity: Resume usual activity Patient Instructions: Opioid Safety Activity Restrictions/Additional Instructions: -Follow-up with wound care -Continue antibiotics as prescribed -Continue lymphedema wraps Discharge Attestations Time Spent in Discharge Care*: less than 30 min Quality Metrics Clinical Quality Measures During this hospital stay, did patient experience: None Coding Level of Care Code Acute [facility] note Diagnoses Peripheral arterial occlusive disease I77.9 Venous insufficiency (chronic) (peripheral) I87.2 Venous stasis ulcer of left lower extremity I83.029; L97.929 Diabetic peripheral neuropathy associated with type 2 diabetes mellitus E11.42 Chronic ulcer of great toe of right foot with fat layer exposed L97.512 Chronic ulcer of left foot with fat layer exposed L97.522
== END 2021-10-26 16:15 | disposition home or self-care (01) | DRG 638 ==
LOC: ER 22:20 → MEDSURG 23:32
PROVIDERS: Nurse Practitioner Family; Admitting Provider Student in an Organized Health Care Education/Training Program; Emergency Provider Emergency Medicine; PCP Family Medicine; Visit Provider Family Medicine
DX: E11.628 Type 2 diabetes mellitus with other skin complications (principal); L03.116 Cellulitis of left lower limb; L03.115 Cellulitis of right lower limb; Z68.45 Body mass index [BMI] 70 or greater, adult; E11.42 Type 2 diabetes mellitus with diabetic polyneuropathy; E11.622 Type 2 diabetes mellitus with other skin ulcer; L98.491 Non-pressure chronic ulcer of skin of other sites limited to breakdown of skin; E11.621 Type 2 diabetes mellitus with foot ulcer; L97.512 Non-pressure chronic ulcer of other part of right foot with fat layer exposed; L97.522 Non-pressure chronic ulcer of other part of left foot with fat layer exposed; E11.51 Type 2 diabetes mellitus with diabetic peripheral angiopathy without gangrene; E66.01 Morbid (severe) obesity due to excess calories; I87.2 Venous insufficiency (chronic) (peripheral); I89.0 Lymphedema, not elsewhere classified; I10 Essential (primary) hypertension; F17.210 Nicotine dependence, cigarettes, uncomplicated; Z79.4 Long term (current) use of insulin; Z79.82 Long term (current) use of aspirin; Z86.19 Personal history of other infectious and parasitic diseases
CPT/HCPCS: 36415; 36416; 73630; 80053; 80202; 82009; 82962; 83036; 83735; 83880; 84100; 85025; 86140; 87040; 87641; 96372; 99285; J0692; J0696; J1650; J1815 ×2; J1940; J3370; J7050

== ENCOUNTER 2021-10-28 09:38 | Outpatient (CLI) | payer MEDICAID, SELFPAY | END 2021-10-28 09:39 | disposition home or self-care (01) | LOC: WOUND 09:39 | PROVIDERS: PCP Family Medicine; Visit Provider Emergency Medicine | DX: I87.2 Venous insufficiency (chronic) (peripheral) (principal); L97.812 Non-pressure chronic ulcer of other part of right lower leg with fat layer exposed; E11.622 Type 2 diabetes mellitus with other skin ulcer; L97.822 Non-pressure chronic ulcer of other part of left lower leg with fat layer exposed; E11.621 Type 2 diabetes mellitus with foot ulcer; L97.522 Non-pressure chronic ulcer of other part of left foot with fat layer exposed; F17.210 Nicotine dependence, cigarettes, uncomplicated; I10 Essential (primary) hypertension | CPT/HCPCS: 11042; 11045; A6253 ==

== ENCOUNTER 2021-10-31 13:45 | Outpatient (CLI) | payer MEDICAID, SELFPAY | END 2021-10-31 13:46 | disposition home or self-care (01) | LOC: WOUND 13:45 | PROVIDERS: PCP Family Medicine; Visit Provider Emergency Medicine | DX: E11.622 Type 2 diabetes mellitus with other skin ulcer (principal); L97.812 Non-pressure chronic ulcer of other part of right lower leg with fat layer exposed; L97.822 Non-pressure chronic ulcer of other part of left lower leg with fat layer exposed; I87.2 Venous insufficiency (chronic) (peripheral) | CPT/HCPCS: 29581; A6253 ==

== ENCOUNTER 2021-11-04 09:25 | Outpatient (CLI) | payer MEDICAID, SELFPAY | END 2021-11-04 09:26 | disposition home or self-care (01) | LOC: WOUND 09:26 | PROVIDERS: PCP Family Medicine; Visit Provider Emergency Medicine | DX: I87.2 Venous insufficiency (chronic) (peripheral) (principal); L97.812 Non-pressure chronic ulcer of other part of right lower leg with fat layer exposed; L97.822 Non-pressure chronic ulcer of other part of left lower leg with fat layer exposed; E11.621 Type 2 diabetes mellitus with foot ulcer; L97.529 Non-pressure chronic ulcer of other part of left foot with unspecified severity; F17.210 Nicotine dependence, cigarettes, uncomplicated; I10 Essential (primary) hypertension | CPT/HCPCS: 11042; 11045; 99212 ==

== ENCOUNTER 2021-11-11 08:58 | Outpatient (CLI) | payer MEDICAID, SELFPAY | END 2021-11-11 08:59 | disposition home or self-care (01) | LOC: WOUND 08:59 | PROVIDERS: PCP Family Medicine; Visit Provider Nurse Practitioner Family | DX: I87.2 Venous insufficiency (chronic) (peripheral) (principal); I96 Gangrene, not elsewhere classified; L97.812 Non-pressure chronic ulcer of other part of right lower leg with fat layer exposed; E11.622 Type 2 diabetes mellitus with other skin ulcer; L97.822 Non-pressure chronic ulcer of other part of left lower leg with fat layer exposed; E11.621 Type 2 diabetes mellitus with foot ulcer; L97.522 Non-pressure chronic ulcer of other part of left foot with fat layer exposed; F17.210 Nicotine dependence, cigarettes, uncomplicated | CPT/HCPCS: 11042; 11045 ==

== ENCOUNTER 2021-11-19 10:36 | Outpatient (CLI) | payer MEDICAID, SELFPAY | END 2021-11-19 10:37 | disposition home or self-care (01) | LOC: WOUND 10:37 | PROVIDERS: PCP Family Medicine; Visit Provider Nurse Practitioner Family | DX: I96 Gangrene, not elsewhere classified (principal); I87.2 Venous insufficiency (chronic) (peripheral); L97.812 Non-pressure chronic ulcer of other part of right lower leg with fat layer exposed; E11.622 Type 2 diabetes mellitus with other skin ulcer; L97.821 Non-pressure chronic ulcer of other part of left lower leg limited to breakdown of skin; F17.210 Nicotine dependence, cigarettes, uncomplicated | CPT/HCPCS: 11042; 11045; A6197 ==

== ENCOUNTER 2021-11-26 14:02 | Outpatient (CLI) | payer MEDICAID, SELFPAY | END 2021-11-26 14:03 | disposition home or self-care (01) | LOC: WOUND 14:02 | PROVIDERS: PCP Family Medicine; Visit Provider Nurse Practitioner Family | DX: I96 Gangrene, not elsewhere classified (principal); I87.2 Venous insufficiency (chronic) (peripheral); L97.812 Non-pressure chronic ulcer of other part of right lower leg with fat layer exposed; E11.622 Type 2 diabetes mellitus with other skin ulcer; L97.829 Non-pressure chronic ulcer of other part of left lower leg with unspecified severity; F17.210 Nicotine dependence, cigarettes, uncomplicated | CPT/HCPCS: 99213; A6197 ==

== ENCOUNTER 2021-12-03 13:27 | Outpatient (CLI) | payer MEDICAID, SELFPAY | END 2021-12-03 13:28 | disposition home or self-care (01) | LOC: WOUND 13:27 | PROVIDERS: PCP Family Medicine; Visit Provider Emergency Medicine | DX: I96 Gangrene, not elsewhere classified (principal); I87.2 Venous insufficiency (chronic) (peripheral); L97.812 Non-pressure chronic ulcer of other part of right lower leg with fat layer exposed; E11.622 Type 2 diabetes mellitus with other skin ulcer; L97.822 Non-pressure chronic ulcer of other part of left lower leg with fat layer exposed; F17.210 Nicotine dependence, cigarettes, uncomplicated | CPT/HCPCS: 11042; 97597; 97598 ==

== ENCOUNTER 2021-12-10 13:34 | Outpatient (CLI) | payer MEDICAID, SELFPAY | END 2021-12-10 13:35 | disposition home or self-care (01) | LOC: WOUND 13:34 | PROVIDERS: PCP Family Medicine; Visit Provider Emergency Medicine | DX: I96 Gangrene, not elsewhere classified (principal); I87.2 Venous insufficiency (chronic) (peripheral); L97.812 Non-pressure chronic ulcer of other part of right lower leg with fat layer exposed; E11.622 Type 2 diabetes mellitus with other skin ulcer; L97.829 Non-pressure chronic ulcer of other part of left lower leg with unspecified severity; F17.210 Nicotine dependence, cigarettes, uncomplicated; R05.9 Cough, unspecified; R06.02 Shortness of breath; I89.0 Lymphedema, not elsewhere classified | CPT/HCPCS: 99213 ==

== ENCOUNTER 2022-02-04 08:30 | Outpatient (CLI) | payer MEDICAID, SELFPAY | END 2022-02-04 08:31 | disposition home or self-care (01) | LOC: WOUND 11:42 | PROVIDERS: PCP Family Medicine; Visit Provider Emergency Medicine | DX: I87.2 Venous insufficiency (chronic) (peripheral) (principal); I96 Gangrene, not elsewhere classified; L97.812 Non-pressure chronic ulcer of other part of right lower leg with fat layer exposed; E11.622 Type 2 diabetes mellitus with other skin ulcer; L97.821 Non-pressure chronic ulcer of other part of left lower leg limited to breakdown of skin | CPT/HCPCS: 11042; 11045; 99213 ==

== ENCOUNTER → 2022-02-18 09:51 | Outpatient (BNVA) | payer MEDICAID, SELFPAY | PROVIDERS: PCP Family Medicine; Visit Provider Emergency Medicine | DX: I87.2 Venous insufficiency (chronic) (peripheral) (principal); E11.622 Type 2 diabetes mellitus with other skin ulcer; I96 Gangrene, not elsewhere classified; L97.812 Non-pressure chronic ulcer of other part of right lower leg with fat layer exposed; L97.821 Non-pressure chronic ulcer of other part of left lower leg limited to breakdown of skin | CPT/HCPCS: 11042; 11045; 99212 ==

== ENCOUNTER → 2022-02-25 09:21 | Outpatient (BNVA) | payer MEDICAID, SELFPAY | PROVIDERS: PCP Family Medicine; Visit Provider Emergency Medicine | DX: I87.2 Venous insufficiency (chronic) (peripheral) (principal); I96 Gangrene, not elsewhere classified; L97.812 Non-pressure chronic ulcer of other part of right lower leg with fat layer exposed; E11.622 Type 2 diabetes mellitus with other skin ulcer; L97.821 Non-pressure chronic ulcer of other part of left lower leg limited to breakdown of skin; F17.210 Nicotine dependence, cigarettes, uncomplicated | CPT/HCPCS: 11042; 11045 ==

== ENCOUNTER → 2022-03-04 09:10 | Outpatient (BNVA) | payer MEDICAID, SELFPAY | PROVIDERS: PCP Family Medicine; Visit Provider Emergency Medicine | DX: I87.2 Venous insufficiency (chronic) (peripheral) (principal); E11.622 Type 2 diabetes mellitus with other skin ulcer; I96 Gangrene, not elsewhere classified; L97.812 Non-pressure chronic ulcer of other part of right lower leg with fat layer exposed; L97.811 Non-pressure chronic ulcer of other part of right lower leg limited to breakdown of skin; F17.210 Nicotine dependence, cigarettes, uncomplicated | CPT/HCPCS: 11042; 11045; 99212 ==

== ENCOUNTER 2022-03-10 16:23 | Emergency (ER) | payer MEDICAID, SELFPAY ==
[2022-03-10 16:32] VITALS: BP 145/88; PULSE 104; RESP 20; TEMP 36.2; O2SAT 97; BMI 69.5
--- NOTE | 2022-03-10 17:32 | ED_ITS ---
HPI - Extremity Problem General: Chief complaint: Extremity Problem,Nontraumatic Stated complaint: sent to ER per Wound Care Time Seen by Provider: 03/10/22 17:32 History of Present Illness: 56-year-old female comes in today with complaints of increased redness and swelling to the left lower leg. Patient has bilateral peripheral vascular disease with venous insufficiency, diabetes mellitus type 2, and chronic ulcers to bilateral lower extremities. Patient reports increased pain and discomfort for the last 2 weeks to the left lower extremity. Patient was seen at wound care last Thursday and was recommended to be evaluated in the ER at that time for possible admission. Patient reports that there has been no improvement since Thursday and that is why she came in today looking for admission to hospital. Patient reports no nausea or vomiting or fever. Patient does report increased difficulty with controlling her blood sugar for the past 2 weeks. Patient states that she has had decreased lung function since and states that she is a long-haul. Patient was last antibiotics 3 weeks ago. Associated symptoms: Deny chest pain Review of Systems General: Reports: 10 or more systems reviewed and unremarkable except in HPI and below Card: Denies: chest pain Resp: Denies: dyspnea Musc: Reports: extremity pain and extremity swelling PFS ED PFSH: Medical History (Updated 03/10/22 @ 19:28 by CHECO Penaloza) Arthritis Crohn's disease Diabetes mellitus HTN (hypertension) IBS (irritable bowel syndrome) Migraine Peripheral arterial occlusive disease Surgical wound dehiscence Venous insufficiency (chronic) (peripheral) Surgical History (Updated 10/24/21 @ 06:03 by Nany Darnell MD) History of dental surgery S/P cataract extraction S/P cholecystectomy Family History Father Diabetes Heart disease Stroke Other Chronic kidney disease (CKD) Hypertension Seizures Social History Smoking and tobacco status: current every day smoker cigarettes Packs smoked per day: 10 Years cigarettes smoked: 15 Physical Exam Const: COMMON NORMALS: alert HENMT: COMMON NORMALS: normocephalic HEAD & SCALP: normocephalic Neck/C-Spine: COMMON NORMALS: full ROM Resp: COMMON NORMALS: normal respiratory effort and clear to auscultation bilaterally AUSCULTATION: clear to auscultation bilaterally Cardio: COMMON NORMALS: regular rhythm RATE: tachycardic RHYTHM: regular rhythm GI: COMMON NORMALS: non-tender Extremity: NARRATIVE EXTREMITY EXAM: Patient has bilateral lower extremity swelling. She has chronic venous ulcers to bilateral lower legs. Left leg is worse than the right. Patient does have some increased warmth in the left when compared to the right. Patient has serous drainage to bilateral lower legs. RIGHT LOWER EXTREMITY: Yes lower leg Right lower leg: Yes inspection and Yes palpation LEFT LOWER EXTREMITY: Yes lower leg Left lower leg: Yes inspection and Yes palpation Neuro: SENSORIUM/ORIENTATION: Yes alert Course ED course: 1899, reviewed patient with Dr. Gonzales recommend that we do a trial of antibiotics outpatient have patient continue care with wound care. No signs of serious illness was noted at this time. Patient has been without antibiotics for 3 weeks. Patient does have some extra fluid on as noted by some mild pulmonary edema. We will also write for some extra furosemide 80 mg daily. Vital Signs: Vital signs: Vital Signs Temperature 97.1 F L 03/10/22 16:32 Pulse Rate 104 H 03/10/22 16:32 Respiratory Rate 20 H 03/10/22 16:32 Blood Pressure 145/88 03/10/22 16:32 Pulse Oximetry 97 03/10/22 16:32 MDM - Extremity (Nontraumatic) Medical Decision Making 56-year-old female comes in today for concerns of swelling to the bilateral lower extremities with increased redness and heat to the left 1. Patient was last seen at wound care on the . Patient was recommended at that time to be evaluated in the ER for possible admission. Patient came in today due to no improvement in the leg over the last week. On exam patient is obese, patient has bilateral peripheral vascular disease with chronic wound ulcers. Increased redness and he is to the left lower extremities. Pulses are noted in the dorsal pedis. Differential diagnosis includes but not limited to cellulitis, chronic wound ulcers, vascular disease. CBC showed a white count of 10,000, ultrasound of the extremity indicated no DVT. Chest x-ray did note some mild pulmonary edema. Reviewed exam with Dr. Gonzales. He recommended outpatient trial of antibiotics and continue wound care specialty. Also to give extra dose of furosemide. Patient will also be covered with some potassium chloride due to the extra dosing of furosemide. Patient reported understanding of care plan and need for follow-up or return to the ER for worsening symptoms. Lab Data : 03/10/22 18:00 03/10/22 19:18 Radiology Impressions Foot X-Ray 03/10/22 17:45 IMPRESSION: No acute findings. Chest X-Ray 03/10/22 17:49 IMPRESSION: 1. There is interstitial prominence compatible with fibrosis, bronchitis, viral pneumonitis or mild interstitial edema. Laboratory Results WBC 10.6 10^3/uL (4.0-10.0) H 03/10/22 18:00 RBC 5.08 10^6/uL (4.1-5.3) 03/10/22 18:00 Hgb 14.1 g/dL (11.5-15.3) 03/10/22 18:00 Hct 45.1 % (37.0-47.0) 03/10/22 18:00 MCV 88.8 fl (81-99) 03/10/22 18:00 MCH 27.8 pg (28.0-34.0) L 03/10/22 18:00 MCHC 31.3 g/dL (30.0-36.0) 03/10/22 18:00 RDW 15.3 % (12.1-15.1) H 03/10/22 18:00 Plt Count 302 10^3/cmm (130-400) 03/10/22 18:00 MPV 11.0 fL (7.4-10.4) H 03/10/22 18:00 Neut % (Auto) 76.4 % 03/10/22 18:00 Lymph % (Auto) 15.1 % 03/10/22 18:00 [place] % (Auto) 5.0 % 03/10/22 18:00 Eos % (Auto) 1.5 % 03/10/22 18:00 Baso % (Auto) 1.2 % 03/10/22 18:00 Neut # (Auto) 8.08 10^3/uL (1.8-7.7) H 03/10/22 18:00 Lymph # (Auto) 1.6 10^3/uL (0.8-4.8) 03/10/22 18:00 [place] # (Auto) 0.5 10^3/uL (0.2-0.9) 03/10/22 18:00 Eos # (Auto) 0.2 10^3/uL (0.0-0.8) 03/10/22 18:00 Baso # (Auto) 0.1 10^3/uL (0.0-0.1) 03/10/22 18:00 Nucleated RBC % (auto) 0 % 03/10/22 18:00 Nucleated RBCs # 0.0 /100WBC 03/10/22 18:00 Sodium Cancelled 03/10/22 18:00 Potassium Cancelled 03/10/22 18:00 Chloride Cancelled 03/10/22 18:00 Carbon Dioxide Cancelled 03/10/22 18:00 Anion Gap Cancelled 03/10/22 18:00 BUN Cancelled 03/10/22 18:00 Creatinine Cancelled 03/10/22 18:00 GFR Calculation Cancelled 03/10/22 18:00 Glucose Cancelled 03/10/22 18:00 Calculated Osmolality Cancelled 03/10/22 18:00 Calcium Cancelled 03/10/22 18:00 Total Bilirubin Cancelled 03/10/22 18:00 AST Cancelled 03/10/22 18:00 ALT Cancelled 03/10/22 18:00 Alkaline Phosphatase Cancelled 03/10/22 18:00 Total Protein Cancelled 03/10/22 18:00 Albumin Cancelled 03/10/22 18:00 Globulin Cancelled 03/10/22 18:00 Discharge Plan Discharge Patient Disposition: Home Clinical Impression: Venous insufficiency (chronic) (peripheral), Cellulitis of left lower leg Condition: Stable Prescriptions: New doxycycline monohydrate 100 mg capsule 100 mg PO BID 7 Days Qty: 14 0RF cefdinir 300 mg capsule 300 mg PO BID 7 Days Qty: 14 0RF furosemide 40 mg tablet 40 mg PO BID Qty: 7 0RF potassium chloride 20 mEq tablet extended release 20 meq PO BID Qty: 7 0RF No Action Vitamin Plus Low Iron 27 mg iron- 1 mg tablet 1 tab PO DAILY 0RF meloxicam 7.5 mg tablet 7.5 mg PO BID PRN (Reason: Pain) 0RF fluticasone propion-salmeterol [Advair Diskus] 250-50 mcg/dose blister with device 1 inh inhalation BID 0RF montelukast 10 mg tablet 10 mg PO DAILY 0RF omeprazole 20 mg capsule,delayed release(DR/EC) 20 mg PO BID 0RF cetirizine 10 mg tablet 10 mg PO QAM 0RF lisinopril 20 mg tablet 20 mg PO QAM 0RF albuterol sulfate [ProAir HFA] 90 mcg/actuation HFA aerosol inhaler 2 puff inhalation Q6H PRN (Reason: Shortness Of Breath) 0RF aspirin 81 mg Tablet,Delayed Release (Dr/Ec) 81 mg PO BID 0RF furosemide 20 mg tablet 40 mg PO QAM 0RF insulin lispro [Humalog U-100 Insulin] 100 unit/mL solution 27 unit SUBCUT .BEFORE MEALS 0RF gentamicin 0.1 % ointment See Rx Instructions .ROUTE .COMPLEX 0RF Rx Instructions: as directed topically Lantus Solostar U-100 Insulin 100 unit/mL (3 mL) insulin pen 80 unit SUBCUT BEDTIME 0RF Lantus U-100 Insulin 100 unit/mL Solution 80 unit SUBCUT QAM Qty: 1 0RF acetazolamide 250 mg Tablet 250 mg PO Q48H Qty: 1 0RF aspirin 81 mg Tablet,Delayed Release (Dr/Ec) 81 mg PO BID Qty: 1 0RF Humalog U-100 Insulin 100 unit/mL Solution 27 unit SUBCUT TID Qty: 1 0RF Pentoxifylline 400 mg PO DAILY Qty: 1 1RF Discharge Orders: Discharge ED (Routine); Ordered 03/10/22 Ordered By: Anil Valadez Referrals: Jn Torres MD [Primary Care Provider] - Discharge Diet: Usual diet Discharge Activity: Limit activity as instructed Patient Instructions: Cellulitis (ED), Opioid Safety Activity Restrictions/Additional Instructions: Elevate lower extremities. Take extra dose of furosemide with routine medications for the next 3 days. Take potassium with the extra dose of furosemide for the next 3 days as directed. Take antibiotics as directed for the next 7 days. Continue routine care with wound care. Return to ER for worsening symptoms. Follow-up with primary care in 3 days. Coding Level of Care Code ED [employer] for [employer] [place] Exam Detailed
--- NOTE | 2022-03-10 17:45 | XRR_ITS ---
PROCEDURE INFORMATION: Exam: XR Left Foot Exam date and time: 03/10/2022 6:01 PM Age: 56 years old Clinical indication: Pain; Foot; Left; Additional info: Heel pain, diabetic, pus in area TECHNIQUE: Imaging protocol: XR Left foot. Views: 3 or more views. COMPARISON: CR (LOW EXM, ) 10/26/2021 8:17 AM FINDINGS: Bones/joints: Normal. No acute fracture. No osteomyelitis or bony destruction. Calcaneus is intact except for a small enthesophyte. Soft tissues: Abundant edema entire foot and ankle. No gas in soft tissues. XR/XR foot LT min 3V* [id number] IMPRESSION: No acute findings.
--- NOTE | 2022-03-10 17:45 | USR_ITS ---
PROCEDURE INFORMATION: Exam: US Duplex Left Lower Extremity Veins, Limited Exam date and time: 03/10/2022 6:49 PM Age: 56 years old Clinical indication: Swelling (edema) of limb; Lower extremity, left; Additional info: Pvd, increase redness and swelling TECHNIQUE: Imaging protocol: Real-time Duplex ultrasound of the Left Lower Extremity with 2-D elliott scale, color Doppler flow and spectral waveform analysis with image documentation. Limited exam focused on the left lower extremity veins. COMPARISON: US soft tissue/extremity [id number] 07/15/2021 2:10 PM FINDINGS: Left deep veins: Unremarkable. The common femoral, femoral, proximal profunda femoral and popliteal veins are patent without thrombus. Normal Doppler waveforms. Normal compressibility and/or augmentation response. Left superficial veins: Unremarkable. Saphenofemoral junction is patent without thrombus. Soft tissues: Unremarkable. US/[place] [id number] IMPRESSION: No evidence of deep vein thrombosis.
--- NOTE | 2022-03-10 17:49 | XRR_ITS ---
PROCEDURE INFORMATION: Exam: XR Chest Exam date and time: 03/10/2022 5:56 PM Age: 56 years old Clinical indication: Shortness of breath; Additional info: Dyspnea TECHNIQUE: Imaging protocol: XR of the chest. Views: 1 view. COMPARISON: No relevant prior studies available. FINDINGS: Lungs: There is interstitial prominence compatible with fibrosis, bronchitis, viral pneumonitis or mild interstitial edema. No consolidation. Pleural spaces: Unremarkable. No pleural effusion. No pneumothorax. Heart/Mediastinum: There is cardiomegaly. Bones/joints: No acute abnormality. XR/XR chest 1V portable [id number] IMPRESSION: 1. There is interstitial prominence compatible with fibrosis, bronchitis, viral pneumonitis or mild interstitial edema.
[2022-03-10 18:09] LABS: Basophils # 0.1 10^3/uL (0.0-0.1); Basophils % 1.2 %; Eosinophils # 0.2 10^3/uL (0.0-0.8); Eosinophils % 1.5 %; Hematocrit 45.1 % (37.0-47.0); Hemoglobin 14.1 g/dL (11.5-15.3); Lymphocytes # 1.6 10^3/uL (0.8-4.8); Lymphocytes % 15.1 %; Mean Corpuscular HGB Conc 31.3 g/dL (30.0-36.0); Mean Corpuscular Hemoglobin 27.8 pg (28.0-34.0); Mean Corpuscular Volume 88.8 fl (81-99); Monocytes # 0.5 10^3/uL (0.2-0.9); Neutrophils # 8.08 10^3/uL (1.8-7.7); Neutrophils % 76.4 %; Nucleated Red Blood Cells % 0 %; Platelet Count 302 10^3/cmm (130-400); Red Blood Count 5.08 10^6/uL (4.1-5.3); Red Cell Distribution Width 15.3 % (12.1-15.1); White Blood Count 10.6 10^3/uL (4.0-10.0)
[2022-03-10] MEDS: cefTRIAXone 1,000 MG in sodium chloride 0.9% (plus) 50 ML 100 MG IV (19:24)
[2022-03-10] MEDS: doxycycline 100 MG in sodium chloride 0.9% (plus) 100 ML IV (19:38)
[2022-03-10 19:50] LABS: Alanine Aminotransferase 20 U/L (0-33); Alkaline Phosphatase 165 IU/L (35-105); Anion Gap 17.1 (5-19); Aspartate Amino Transferase 16 U/L (0-32); Blood Urea Nitrogen 15 mg/dL (6-20); Calcium 8.3 mg/dL (8.5-10.5); Carbon Dioxide 23 mmol/L (22-29); Chloride 95 mmol/L (98-107); Globulin 3.2 g/dL (1.3-4.6); Glomerular Filtration Rate 73.7 mL/min (90-130); Osmolality Calculated 299 mOsm/kg (285-295); Potassium 4.1 mmol/L (3.5-5.1); Sodium 131 mmol/L (136-145); Total Bilirubin 0.2 mg/dL (0.15-1.2); Total Protein 7.2 g/dL (6.6-8.7)
[2022-03-10 19:51] LABS: Glucose 575 mg/dL (65-115)
[2022-03-10] MEDS: FUROsemide 10 mg/mL SDV 4mL 40 MG IVP (20:03)
[2022-03-10] MEDS: insulin lispro 100 unit/1 mL 10 UNIT SUBCUT (20:12)
== END 2022-03-10 20:24 | disposition home or self-care (01) ==
PROVIDERS: Emergency Provider Nurse Practitioner Family; PCP Family Medicine
DX: E11.51 Type 2 diabetes mellitus with diabetic peripheral angiopathy without gangrene (principal); L03.116 Cellulitis of left lower limb; E11.65 Type 2 diabetes mellitus with hyperglycemia; E11.622 Type 2 diabetes mellitus with other skin ulcer; L97.929 Non-pressure chronic ulcer of unspecified part of left lower leg with unspecified severity; L97.919 Non-pressure chronic ulcer of unspecified part of right lower leg with unspecified severity; E66.9 Obesity, unspecified; Z68.44 Body mass index [BMI] 60.0-69.9, adult; I10 Essential (primary) hypertension; F17.210 Nicotine dependence, cigarettes, uncomplicated; J81.0 Acute pulmonary edema; I87.2 Venous insufficiency (chronic) (peripheral); Z79.4 Long term (current) use of insulin
CPT/HCPCS: 71045; 73630; 80053; 85025; 87040; 93971; 96365; 96367; 96372; 96375; 99285; J0696; J1815; J1940; J3490

== ENCOUNTER → 2022-03-18 09:07 | Outpatient (BNVA) | payer MEDICAID, SELFPAY | PROVIDERS: PCP Family Medicine; Visit Provider Emergency Medicine | DX: I87.2 Venous insufficiency (chronic) (peripheral) (principal); L97.812 Non-pressure chronic ulcer of other part of right lower leg with fat layer exposed; E11.622 Type 2 diabetes mellitus with other skin ulcer; L97.821 Non-pressure chronic ulcer of other part of left lower leg limited to breakdown of skin; I96 Gangrene, not elsewhere classified; F17.210 Nicotine dependence, cigarettes, uncomplicated | CPT/HCPCS: 11042; 11045; 99212 ==

== ENCOUNTER → 2022-03-25 08:35 | Outpatient (BNVA) | payer MEDICAID, SELFPAY | PROVIDERS: PCP Family Medicine; Visit Provider Emergency Medicine | DX: F17.210 Nicotine dependence, cigarettes, uncomplicated; E11.622 Type 2 diabetes mellitus with other skin ulcer; L97.821 Non-pressure chronic ulcer of other part of left lower leg limited to breakdown of skin; I87.2 Venous insufficiency (chronic) (peripheral); L97.811 Non-pressure chronic ulcer of other part of right lower leg limited to breakdown of skin | CPT/HCPCS: 11042; 11045; 99212; A6260 ==

== ENCOUNTER 2022-03-25 13:52 | Inpatient (IN) | payer MEDICAID, SELFPAY ==
[2022-03-25 13:36] VITALS: BMI 54.6
--- NOTE | 2022-03-25 13:49 | PM.HP ---
Providers/Chief Complaint Admitting Physician: Rigoberto Andersen MD Primary Care Provider: Jn Torres MD Chief Complaint: Cellulitis in failed out patient History of Present Illness Evangelina Velázquez is a 56 year old female who presents from wound care clinic with complaints of increasing size, erythema, and discomfort of her left lower extremity. From my understanding she has had venous stasis for quite some time as well as chronic ulcers. She has been treated with antibiotics recently, including cefdinir and doxycycline from the emergency department on March 10. Her left leg improved, then worsened. She denies any fevers. With recurrence of severe cellulitis and edema her wound care physician contacted me regarding direct admission. The patient denies any chest pain, shortness of breath, blood in stool, black or tarry stools. Review of Systems General: Reports: 10 or more systems reviewed and unremarkable except in HPI and below Const: Denies: fever(s) or chills Eyes: Denies: change in vision ENMT: Denies: throat pain Card: Denies: chest pain Resp: Denies: dyspnea GI: Denies: abdominal pain, hematochezia or melena : Denies: flank pain Musc: Reports: extremity pain Skin/Breast: Reports: erythema Neuro: Denies: headache(s) Psych: Denies: anxiety or depression Endo: Denies: polyuria Samson/Lymph: Denies: easy bruising All/Imm: Denies: urticaria Medications/Allergies Home Medications Medication Instructions Recorded Confirmed Last Taken Type albuterol sulfate 90 mcg/actuation 2 puff INHALATION Q6H PRN 12/04/20 10/24/21 02/18/21 08:00 History aerosol inhaler (ProAir HFA) cetirizine 10 mg tablet 10 mg PO QAM 12/04/20 10/24/21 02/18/21 08:00 History fluticasone 250 mcg-salmeterol 50 1 inh INHALATION BID 12/04/20 10/24/21 02/18/21 08:00 History mcg/dose blistr powdr for inhalation (Advair Diskus) lisinopril 20 mg tablet 20 mg PO QAM 12/04/20 10/24/21 02/19/21 05:00 History meloxicam 7.5 mg tablet 7.5 mg PO BID PRN tab 01/11/1210/24/21 02/18/21 08:00 History montelukast 10 mg tablet 10 mg PO DAILY 12/04/20 10/24/21 02/18/21 08:00 History omeprazole 20 mg capsule,delayed 20 mg PO BID 12/04/20 10/24/21 02/18/21 08:00 History release vitamin with calcium 1 tab PO DAILY 12/04/20 10/24/21 02/18/21 08:00 History no.72-iron 27 mg-folic acid 1 mg tablet ( Vitamins Plus Low Iron) aspirin 81 mg tablet,delayed 81 mg PO BID 10/24/21 10/24/21 Unknown History release furosemide 20 mg tablet 40 mg PO QAM 10/24/21 10/24/21 Unknown History gentamicin 0.1 % topical ointment See Rx Instructions .ROUTE .COMPLEX 10/24/21 10/24/21 Unknown History insulin glargine 100 unit/mL (3 80 unit SUBCUT BEDTIME 10/24/21 10/24/21 Unknown History mL) subcutaneous pen (Lantus Solostar U-100 Insulin) insulin lispro 100 unit/mL 27 unit SUBCUT .BEFORE MEALS 10/24/21 10/24/21 Unknown History subcutaneous solution (Humalog U-100 Insulin) Pentoxifylline 400 mg PO DAILY #1 cell 10/26/21 Unknown Rx acetazolamide 250 mg tablet 250 mg PO Q48H #1 tab 10/26/21 Unknown Rx insulin glargine 100 unit/mL 80 unit (0.8 mL) SUBCUT QAM #1 ml 10/26/21 Unknown Rx subcutaneous solution (Lantus U-100 Insulin) insulin lispro 100 unit/mL 27 unit (0.27 mL) SUBCUT TID #1 ml 10/26/21 Unknown Rx subcutaneous solution (Humalog U-100 Insulin) furosemide 40 mg tablet 40 mg PO BID #7 tab 03/10/22 Unknown Rx potassium chloride 20 mEq 20 meq PO BID #7 tab 03/10/22 Unknown Rx tablet,extended release Allergies Allergy/AdvReac Type Severity Reaction Status Date / Time diphth,pert(acell),tetan,polio Allergy Unknown Unknown Verified 03/10/22 16:35 vacc,component 1of2 [From Pentacel DTaP-IPV Compnt (PF)] Penicillins Allergy Unknown Unknown Verified 03/10/22 16:35 PFSH Acute PFSH: Medical History Arthritis Crohn's disease Diabetes mellitus HTN (hypertension) IBS (irritable bowel syndrome) Migraine Peripheral arterial occlusive disease Surgical wound dehiscence Venous insufficiency (chronic) (peripheral) Surgical History History of dental surgery S/P cataract extraction S/P cholecystectomy Family History Father Diabetes Heart disease Stroke Other Chronic kidney disease (CKD) Hypertension Seizures Social History (Updated 03/25/22 @ 13:51 by Rigoberto Andersen MD) Smoking and tobacco status: current every day smoker cigarettes Packs smoked per day: 10 Years cigarettes smoked: 15 Alcohol intake: never Substance/Drug Use: never Physical Exam Narrative: General exam is a pleasant obese white female, in no apparent distress who is conversant. HEENT: Pupils equally round. Oropharynx clear. Neck is supple no lymphadenopathy or thyromegaly Cardiovascular regular rate and rhythm without murmur Lungs clear. Diminished breath sounds are noted bilaterally. No wheezing Abdomen is soft obese nontender with positive bowel sounds. Cannot estimate organomegaly secondary to girth exam is deferred Extremities bilateral lower extremities with significant venous stasis changes with some erythema and edema as well as previous old scarring. Some bruising is noted as well. Left foot is different than the right and that there is some cracking of skin, erythema, and edema. Patient also reports pain to palpation. Cap refill on both sides distally is less than 2 seconds. No purulent drainage is noted. Skin see above Neuro no obvious focal deficits A&P Assessment and plan (1) Cellulitis: Left lower extremity cellulitis, failing outpatient treatment Check venous duplex bilateral lower extremity secondary to edema Initiate vancomycin and Rocephin. Note she is allergic to penicillin Check left ankle and foot x-ray Blood culture Check baseline laboratory consisting of CBC, CMP, TSH, hemoglobin A1c Elevate as much as possible Status: Acute Qualifiers: Laterality: unspecified laterality Site of cellulitis: extremity Site of cellulitis of extremity: lower extremity Qualified Code(s): L03.119 - Cellulitis of unspecified part of limb (2) Venous stasis ulcer of left lower extremity: Continue wound care recommendations Status: Acute (3) Diabetes mellitus: Sliding scale insulin, in addition to 10 units of lispro with meals. Continue long-acting insulin Status: Acute (4) Morbid obesity: Encourage weight loss Status: Acute Plan Multiple other medical problems as outlined in past medical history Full code Lovenox for DVT prophylaxis May need placement for wound care. Attestations Medical Necessity Statement*: Will need greater than 2 midnight stay for treatment of cellulitis left lower extremity, chronic venous stasis ulceration Coding Level of Care Code Acute Cupola Operator Insulation for [facility] Fwd Diagnoses Cellulitis L03.119 Laterality: unspecified laterality Site of cellulitis: extremity Site of cellulitis of extremity: lower extremity Venous stasis ulcer of left lower extremity I83.029; L97.929 Diabetes mellitus E11.9 Morbid obesity E66.01
[2022-03-25 13:52] VITALS: BP 146/85; PULSE 105; RESP 18; TEMP 36.8; O2SAT 96
--- NOTE | 2022-03-25 13:57 | USCV_ITS ---
EberEvangelina Age: 56 Gender: F : 1965 Exam Date: 03/25/2022 15:09 Ordering Phys: Rigoberto Andersen MD Technologist: Karsten Pabon [place] [facility] [place]: edema PROCEDURES: Venous duplex imaging was performed in bilateral lower extremities. The following venous structures were evaluated: common femoral vein, profunda vein, proximal portion of the greater saphenous vein, superficial femoral vein, and the popliteal vein. In addition, the posterior tibial and peroneal trunk were evaluated. Serial compression, augmentation maneuvers, and spectral Doppler flow evaluation were performed. FINDINGS: TDS and limited due to patient size. Right popliteal and peroneal not visualized today. All other veins appeared free of thrombus at this time. CONCLUSIONS Right popliteal and peroneal not visualized No evidence of right lower extremity DVT. No evidence of left lower extremity DVT. Zev Polk MD (Electronically Signed) Final Date: 26 Mar 2022 10:41 S
--- NOTE | 2022-03-25 14:09 | XRR_ITS ---
PROCEDURE INFORMATION: Exam: XR Left Foot Exam date and time: 03/25/2022 2:26 PM Age: 56 years old Clinical indication: Location not specified; Patient HX: Edema; Excessive swelling, open/weeping pores in bilat low ext. PT denies surg on foot/ankle. PT states she is diabetic. PT states she has been going to wound care with no results, open/seeping x several months TECHNIQUE: Imaging protocol: XR Left foot. Views: 1 or 2 views. COMPARISON: CR (LOW EX, ) 03/10/2022 6:01 PM FINDINGS: Bones/joints: No acute fracture dislocation or obvious plain film signs of osteomyelitis. Plantar calcaneal spur. Mild spurring at the ankle joint. Soft tissues: Diffuse soft tissue swelling and/or obesity. No soft tissue gas. Other findings: Two views submitted. XR/XR foot LT 2V [id number] IMPRESSION: No acute osseous findings. Soft tissue findings as above.
--- NOTE | 2022-03-25 14:09 | XRR_ITS ---
PROCEDURE INFORMATION: Exam: XR Left Ankle Exam date and time: 03/25/2022 2:23 PM Age: 56 years old Clinical indication: Location not specified; Patient HX: Edema; Excessive swelling, open/weeping pores in bilat low ext. PT denies surg on foot/ankle. PT states she is diabetic. PT states she has been going to wound care with no results, open/seeping x several months TECHNIQUE: Imaging protocol: XR Left ankle. Views: 1 or 2 views. COMPARISON: CR (LOW EXM, ) 03/10/2022 6:01 PM FINDINGS: Bones/joints: Mild degenerative spurring at the ankle joint is noted. No obvious acute fracture dislocation. Plantar calcaneal spur. No obvious signs of acute osteomyelitis. Soft tissues: Diffuse soft tissue edema and/or obesity is present. No soft tissue gas or large radiopaque soft tissue foreign bodies. Other findings: Two views submitted. XR/XR ankle LT 2V [id number] IMPRESSION: No acute osseous findings. Soft tissue findings as above.
[2022-03-25] MEDS: cefTRIAXone 1,000 MG in sodium chloride 0.9% (plus) 50 ML 100 MG IV (14:54)
[2022-03-25] MEDS: enoxaparin 40 mg/0.4 mL Syringe SUBCUT (14:54)
[2022-03-25 15:42] LABS: Alanine Aminotransferase 21 U/L (0-33); Albumin Level 3.2 g/dL (3.5-5.2); Alkaline Phosphatase 146 IU/L (35-105); Blood Urea Nitrogen 17 mg/dL (6-20); Carbon Dioxide 24 mmol/L (22-29); Chloride 102 mmol/L (98-107); Globulin 3.5 g/dL (1.3-4.6); Glomerular Filtration Rate 73.7 mL/min (90-130); Glucose 282 mg/dL (65-115); Osmolality Calculated 294 mOsm/kg (285-295); Sodium 136 mmol/L (136-145); Thyroid Stimulating Hormone 2.77 uIU/mL (0.27-4.20); Total Bilirubin 0.2 mg/dL (0.15-1.2); Total Protein 6.7 g/dL (6.6-8.7)
[2022-03-25 15:47] LABS: Anion Gap 14.4 (5-19); Aspartate Amino Transferase 22 U/L (0-32); Potassium 4.4 mmol/L (3.5-5.1)
[2022-03-25 15:48] VITALS: BP 156/78; PULSE 95; RESP 18; TEMP 36.7; O2SAT 97
[2022-03-25 16:15] LABS: Estmated Average Glucose 295; Hemoglobin A1C 11.9 % (4.0-6.0)
[2022-03-25 17:18] LABS: Glucose Point of Care 226 mg/dL (70-110)
[2022-03-25] MEDS: insulin lispro 100 unit/1 mL 10 UNIT SUBCUT (18:01)
[2022-03-25] MEDS: insulin lispro 100 unit/1 mL SUBCUT ×2 (18:01→21:28)
[2022-03-25 19:18] VITALS: BP 120/66; PULSE 93; RESP 18; TEMP 36.9; O2SAT 97
[2022-03-25] MEDS: vancomycin 1,500 MG/300 ML PIGGYBACK 200 MG IV (19:42)
[2022-03-25 21:08] LABS: Glucose Point of Care 247 mg/dL (70-110)
[2022-03-25 23:56] VITALS: BP 124/70; PULSE 86; RESP 17; TEMP 36.7; O2SAT 95
[2022-03-26] VITALS (7 sets, daily range): BP systolic 122–156; BP diastolic 59–73; PULSE 72–93; RESP 13–18; TEMP 36.4–36.8; O2SAT 90–94
[2022-03-26 03:58] LABS: Basophils # 0.1 10^3/uL (0.0-0.1); Basophils % 0.8 %; Eosinophils # 0.1 10^3/uL (0.0-0.8); Hematocrit 36.9 % (37.0-47.0); Hemoglobin 10.9 g/dL (11.5-15.3); Lymphocytes # 1.5 10^3/uL (0.8-4.8); Lymphocytes % 12.4 %; Mean Corpuscular HGB Conc 29.5 g/dL (30.0-36.0); Mean Corpuscular Hemoglobin 27.8 pg (28.0-34.0); Mean Corpuscular Volume 94.1 fl (81-99); Mean Platelet Volume 10.2 fL (7.4-10.4); Monocytes # 0.5 10^3/uL (0.2-0.9); Monocytes % 4.4 %; Neutrophils # 9.62 10^3/uL (1.8-7.7); Neutrophils % 80.1 %; Nucleated Red Blood Cells % 0.2 %; Platelet Count 286 10^3/cmm (130-400); Red Blood Count 3.92 10^6/uL (4.1-5.3)
[2022-03-26 04:15] LABS: Anion Gap 14.3 (5-19); Blood Urea Nitrogen 16 mg/dL (6-20); Calcium 8.6 mg/dL (8.5-10.5); Carbon Dioxide 22 mmol/L (22-29); Chloride 104 mmol/L (98-107); Creatinine Clr Calc Pharmacy 116.5948; Glomerular Filtration Rate 85.9 mL/min (90-130); Glucose 147 mg/dL (65-115); Osmolality Calculated 286 mOsm/kg (285-295); Potassium 4.3 mmol/L (3.5-5.1); Sodium 136 mmol/L (136-145)
[2022-03-26 04:16] LABS: Slide Review Slide Review Perform
[2022-03-26 06:35] LABS: Glucose Point of Care 140 mg/dL (70-110)
[2022-03-26 07:17] LABS: Ferritin 161 ng/mL (15-150); Iron 18 ug/dL (37-145); Percent Saturation 9.4 % (20-50); Total Iron Binding Capacity 191 mcg/dl; Unsaturated Iron Binding 173 ug/dL (112-347)
[2022-03-26 07:31] LABS: Vitamin B12 278 pg/mL (232-1245)
[2022-03-26] MEDS: pantoprazole DR 40 mg Tablet PO ×2 (09:13→18:13)
[2022-03-26] MEDS: vancomycin 1,500 MG/300 ML PIGGYBACK 200 MG IV ×2 (09:13→21:10)
[2022-03-26] MEDS: insulin lispro 100 unit/1 mL 10 UNIT SUBCUT ×3 (09:13→18:12)
--- NOTE | 2022-03-26 10:02 | PC.PHAR ---
pt states she takes care of her own medications-pt states her kcl was dced last week by [place]-pt states she takes acetazolamide 125mg eod ext med history shows last filled 11/26/21-notes are made in the pharmacy comments
--- NOTE | 2022-03-26 11:06 | PM.PN ---
Subjective Subjective: Evangelina reports she is doing okay. She believes the foot is better. She inquires whether she would be going to the senior living for continued wound care. No chest pain or shortness of breath. She reports pain in the foot is improved. Medications: Reviewed: Yes Vitals/I&O/Wt Last Vital Signs Temp 97.6 F 03/26/22 08:00 Pulse 84 03/26/22 08:00 Resp 14 03/26/22 08:00 BP 132/70 03/26/22 08:00 Pulse Ox 92 03/26/22 08:00 03/25/22 03/26/22 03/26/22 22:59 06:59 14:59 Intake Total 350 / 350 0 / 350 Balance 350 / 350 0 / 350 Weight last 48 hrs Weight 135.624 kg Physical Exam Narrative: General exam is a pleasant obese white female, in no apparent distress Neck is supple no lymphadenopathy or thyromegaly Cardiovascular regular rate and rhythm without murmur Lungs clear. Diminished breath sounds are noted bilaterally. No wheezing Abdomen is soft obese nontender with positive bowel sounds. Extremities bilateral lower extremities with dressings bilaterally. I examined the left foot in detail where cellulitis was. This appears slightly better, with less erythema and edema. Skin see above Data : 03/26/22 03:15 03/26/22 03:15 Micro: Microbiology 03/25/22 14:52 Blood Culture - Preliminary Blood SPECIMEN COLLECTED 03/25/22 14:50 Blood Culture - Preliminary Blood SPECIMEN COLLECTED A&P Assessment and plan (1) Cellulitis: Left lower extremity cellulitis, failing outpatient treatment Venous duplex negative for DVT X-rays of left ankle and left foot negative Continue vancomycin and Rocephin, note her allergy to penicillin Overall improving Continue to elevate leg is much as possible Possible discharge tomorrow if continues to improve. Status: Acute Qualifiers: Laterality: unspecified laterality Site of cellulitis: extremity Site of cellulitis of extremity: lower extremity Qualified Code(s): L03.119 - Cellulitis of unspecified part of limb (2) Venous stasis ulcer of left lower extremity: Continue wound care recommendations Status: Acute (3) Diabetes mellitus: Sliding scale insulin, in addition to 10 units of lispro with meals. Continue long-acting insulin Status: Acute (4) Morbid obesity: Encourage weight loss Status: Acute Plan Multiple other medical problems as outlined in past medical history Full code Lovenox for DVT prophylaxis May need placement for wound care. Attestations Medical Necessity Statement*: Needs continued hospitalization for IV antibiotics secondary to cellulitis Coding Level of Care Code Acute Messenger Floorperson for Chg Fwd Diagnoses Cellulitis L03.119 Laterality: unspecified laterality Site of cellulitis: extremity Site of cellulitis of extremity: lower extremity Venous stasis ulcer of left lower extremity I83.029; L97.929 Diabetes mellitus E11.9 Morbid obesity E66.01
[2022-03-26 11:14] LABS: Folate Level > 20.0 ng/mL (4.8-37.3)
[2022-03-26 11:34] LABS: Glucose Point of Care 219 mg/dL (70-110)
[2022-03-26] MEDS: cefTRIAXone 1,000 MG in sodium chloride 0.9% (plus) 50 ML 100 MG IV (15:41)
[2022-03-26] MEDS: enoxaparin 40 mg/0.4 mL Syringe SUBCUT (15:41)
[2022-03-26 17:41] LABS: Glucose Point of Care 173 mg/dL (70-110)
[2022-03-26] MEDS: aspirin 81 mg EC Tablet PO (18:27)
[2022-03-26] MEDS: FUROsemide 40 mg Tablet PO (18:27)
[2022-03-26 20:45] LABS: Glucose Point of Care 227 mg/dL (70-110)
[2022-03-26] MEDS: insulin glargine 100 units/1 mL 40 UNIT SUBCUT (21:10)
[2022-03-26] MEDS: montelukast sodium 10 mg Tablet PO (21:10)
[2022-03-26] MEDS: insulin lispro 100 unit/1 mL SUBCUT (21:11)
[2022-03-27] VITALS (8 sets, daily range): BP systolic 118–155; BP diastolic 62–78; PULSE 74–147; RESP 16–18; TEMP 36.4–36.7; O2SAT 92–97
--- NOTE | 2022-03-27 00:25 | PC.NURSE ---
i reported high pulse 147 to nurse
[2022-03-27] MEDS: lisinopril 20 mg Tablet PO (05:42)
[2022-03-27 06:13] LABS: Basophils # 0.1 10^3/uL (0.0-0.1); Basophils % 0.7 %; Eosinophils # 0.3 10^3/uL (0.0-0.8); Eosinophils % 3.3 %; Hematocrit 37.5 % (37.0-47.0); Hemoglobin 11.3 g/dL (11.5-15.3); Lymphocytes # 1.7 10^3/uL (0.8-4.8); Lymphocytes % 19.1 %; Mean Corpuscular HGB Conc 30.1 g/dL (30.0-36.0); Mean Corpuscular Hemoglobin 27.7 pg (28.0-34.0); Mean Corpuscular Volume 91.9 fl (81-99); Monocytes # 0.5 10^3/uL (0.2-0.9); Monocytes % 5.7 %; Neutrophils # 6.17 10^3/uL (1.8-7.7); Neutrophils % 70.4 %; Nucleated Red Blood Cells % 0 %; Platelet Count 295 10^3/cmm (130-400); Red Blood Count 4.08 10^6/uL (4.1-5.3); Red Cell Distribution Width 14.7 % (12.1-15.1); White Blood Count 8.8 10^3/uL (4.0-10.0)
[2022-03-27 06:30] LABS: Glucose Point of Care 154 mg/dL (70-110)
[2022-03-27 06:38] LABS: Anion Gap 14.1 (5-19); Blood Urea Nitrogen 17 mg/dL (6-20); Calcium 8.7 mg/dL (8.5-10.5); Carbon Dioxide 23 mmol/L (22-29); Chloride 104 mmol/L (98-107); Creatinine Clr Calc Pharmacy 116.5948; Glomerular Filtration Rate 85.9 mL/min (90-130); Glucose 180 mg/dL (65-115); Osmolality Calculated 290 mOsm/kg (285-295); Potassium 4.1 mmol/L (3.5-5.1); Sodium 137 mmol/L (136-145)
[2022-03-27 08:41] LABS: Vancomycin Trough 13.5 ug/mL (10-15)
[2022-03-27] MEDS: insulin lispro 100 unit/1 mL SUBCUT ×2 (08:44→12:32)
[2022-03-27] MEDS: insulin lispro 100 unit/1 mL 10 UNIT SUBCUT ×2 (08:44→12:31)
[2022-03-27] MEDS: aspirin 81 mg EC Tablet PO (08:44)
[2022-03-27] MEDS: FUROsemide 40 mg Tablet PO (08:45)
[2022-03-27] MEDS: pantoprazole DR 40 mg Tablet PO ×2 (08:45→08:50)
[2022-03-27] MEDS: vancomycin 1,500 MG/300 ML PIGGYBACK 300 MG IV (08:45)
--- NOTE | 2022-03-27 10:12 | PM.DCS ---
Discharge Providers Date of Admission: 03/25/22 13:52 Date of Discharge: March 27, 2022 Attending Provider at Admission: Rigoberto Andersen MD Attending Provider at Discharge: Rigoberto Andersen MD Primary Care Provider: Jn Torres MD Diagnoses at Discharge Discharge Diagnosis (1) Cellulitis: Status: Acute Qualifiers: Laterality: unspecified laterality Site of cellulitis: extremity Site of cellulitis of extremity: lower extremity Qualified Code(s): L03.119 - Cellulitis of unspecified part of limb (2) Venous stasis ulcer of left lower extremity: Status: Acute (3) Diabetes mellitus: Status: Acute (4) Morbid obesity: Status: Acute Reason for Visit Reason for Visit: Cellulitis in failed out patient Hospital Course Hospital Course Evangelina is a 56-year-old white female with longstanding venous stasis ulcerations who presented from wound care with erythema of her left foot, and edema which was out of her norm. She had been seen in the emergency department on March 10 and had doxycycline and cefdinir with some initial improvement, then worsening. When I saw her her foot was certainly swollen, edematous. There was no purulence. Some of the skin was dry and cracked. Venous stasis ulcerations were present on both legs. Blood cultures were drawn which were negative at discharge. White blood cell count was slightly high. She was given IV antibiotics consisting of vancomycin and Zosyn. Throughout her hospital stay she showed improvement in her left foot edema and erythema with wound care and IV antibiotics. By the end of her hospital course she had not run any fevers the entire stay, cultures were negative, and significant improvement of the foot occurred. Ulcerations were still present, and being treated for her venous stasis bilaterally. There was no obvious need for any surgical debridement. Venous duplex was negative for thromboembolism. X-rays of left foot demonstrated no fracture or osteomyelitis X-rays of left ankle demonstrated no fracture or osteomyelitis. He was thought she should go to a nursing facility, for for continued wound care which she refused. Therefore with improvement it was arranged for her to do home health. She will finish up a course of oral antibiotics. This will consist of Keflex and doxycycline. Physical Exam Narrative: General exam no distress Neck is supple no lymphadenopathy or thyromegaly Cardiovascular regular rate and rhythm without murmur Lungs clear Abdomen soft Extremities venous stasis changes bilaterally with some venous stasis ulcerations. Previously erythematous and edematous left foot markedly improved. Some peeling skin is noted. Cap refill brisk. Discharge Data Studies Completed and Pending Completed Studies During Hospitalization Category Date Time Status XR ankle LT 2V [id number] Routine Exams 03/25/22 14:09 Completed XR foot LT 2V [id number] Routine Exams 03/25/22 14:09 [place] [id number] Routine Ultrasound 03/25/22 13:57 Completed Pending at discharge Category Date Time Status Blood Culture Stat Lab 03/25/22 14:52 Results Radiology Impressions Ankle X-Ray 03/25/22 14:09 IMPRESSION: No acute osseous findings. Soft tissue findings as above. Foot X-Ray 03/25/22 14:09 IMPRESSION: No acute osseous findings. Soft tissue findings as above. Laboratory Results WBC 8.8 10^3/uL (4.0-10.0) 03/27/22 05:48 RBC 4.08 10^6/uL (4.1-5.3) L 03/27/22 05:48 Hgb 11.3 g/dL (11.5-15.3) L 03/27/22 05:48 Hct 37.5 % (37.0-47.0) 03/27/22 05:48 MCV 91.9 fl (81-99) 03/27/22 05:48 MCH 27.7 pg (28.0-34.0) L 03/27/22 05:48 MCHC 30.1 g/dL (30.0-36.0) 03/27/22 05:48 RDW 14.7 % (12.1-15.1) 03/27/22 05:48 Plt Count 295 10^3/cmm (130-400) 03/27/22 05:48 MPV 10.0 fL (7.4-10.4) 03/27/22 05:48 Neut % (Auto) 70.4 % 03/27/22 05:48 Lymph % (Auto) 19.1 % 03/27/22 05:48 Bradford % (Auto) 5.7 % 03/27/22 05:48 Eos % (Auto) 3.3 % 03/27/22 05:48 Baso % (Auto) 0.7 % 03/27/22 05:48 Neut # (Auto) 6.17 10^3/uL (1.8-7.7) 03/27/22 05:48 Lymph # (Auto) 1.7 10^3/uL (0.8-4.8) 03/27/22 05:48 Bradford # (Auto) 0.5 10^3/uL (0.2-0.9) 03/27/22 05:48 Eos # (Auto) 0.3 10^3/uL (0.0-0.8) 03/27/22 05:48 Baso # (Auto) 0.1 10^3/uL (0.0-0.1) 03/27/22 05:48 Nucleated RBC % (auto) 0 % 03/27/22 05:48 Nucleated RBCs # 0.0 /100WBC 03/27/22 05:48 Sodium 137 mmol/L (136-145) 03/27/22 05:48 Potassium 4.1 mmol/L (3.5-5.1) 03/27/22 05:48 Chloride 104 mmol/L (98-107) 03/27/22 05:48 Carbon Dioxide 23 mmol/L (22-29) 03/27/22 05:48 Anion Gap 14.1 (5-19) 03/27/22 05:48 BUN 17 mg/dL (6-20) 03/27/22 05:48 Creatinine 0.7 mg/dL (0.5-0.9) 03/27/22 05:48 GFR Calculation 85.9 mL/min (90-130) L 03/27/22 05:48 Glucose 180 mg/dL (65-115) H 03/27/22 05:48 POC Glucose 154 mg/dL (70-110) H 03/27/22 06:20 Estimat Average Glucose 295 03/25/22 14:50 Hemoglobin A1c 11.9 % (4.0-6.0) H 03/25/22 14:50 Calculated Osmolality 290 mOsm/kg (285-295) 03/27/22 05:48 Calcium 8.7 mg/dL (8.5-10.5) 03/27/22 05:48 Iron 18 ug/dL (37-145) L 03/26/22 03:00 TIBC 191 mcg/dl 03/26/22 03:00 % Saturation 9.4 % (20-50) L 03/26/22 03:00 Unsat Iron Binding 173 ug/dL (112-347) 03/26/22 03:00 Ferritin 161 ng/mL (15-150) H 03/26/22 03:00 Total Bilirubin 0.2 mg/dL (0.15-1.2) 03/25/22 14:50 AST 22 U/L (0-32) 03/25/22 14:50 ALT 21 U/L (0-33) 03/25/22 14:50 Alkaline Phosphatase 146 IU/L (35-105) H 03/25/22 14:50 Total Protein 6.7 g/dL (6.6-8.7) 03/25/22 14:50 Albumin 3.2 g/dL (3.5-5.2) L 03/25/22 14:50 Globulin 3.5 g/dL (1.3-4.6) 03/25/22 14:50 Vitamin B12 278 pg/mL (232-1245) 03/26/22 03:00 Folate > 20.0 ng/mL (4.8-37.3) 03/26/22 09:18 TSH 2.77 uIU/mL (0.27-4.20) 03/25/22 14:50 Vancomycin Trough 13.5 ug/mL (10-15) 03/27/22 08:08 Vitals Last Vital Signs Temp 98.0 F 03/27/22 04:00 Pulse 80 03/27/22 07:39 Resp 16 03/27/22 07:39 BP 118/62 03/27/22 04:00 Pulse Ox 93 03/27/22 07:39 Discharge Plan Discharge Patient Disposition: Home Health Service Condition: Stable Prescriptions: New doxycycline monohydrate 100 mg capsule 100 mg PO BID 7 Days Qty: 14 0RF cephalexin 500 mg capsule 500 mg PO TID 7 Days Qty: 21 0RF Continued fluticasone propion-salmeterol [Advair Diskus] 250-50 mcg/dose blister with device 1 inh inhalation BID 0RF montelukast 10 mg tablet 10 mg PO BEDTIME 0RF omeprazole 20 mg capsule,delayed release(DR/EC) 20 mg PO BID 0RF cetirizine 10 mg tablet 10 mg PO QAM 0RF lisinopril 20 mg tablet 20 mg PO QAM 0RF albuterol sulfate [ProAir HFA] 90 mcg/actuation HFA aerosol inhaler 2 puff inhalation Q4H PRN (Reason: Shortness Of Breath) 0RF aspirin 81 mg Tablet,Delayed Release (Dr/Ec) 81 mg PO BID 0RF insulin lispro [Humalog U-100 Insulin] 100 unit/mL Solution 27 unit SUBCUT TID Qty: 1 0RF furosemide 40 mg tablet 40 mg PO BID Qty: 7 0RF silver sulfadiazine 1 % cream 1 applic TOPICAL BID 0RF fluconazole 150 mg tablet 150 mg PO DAILY 0RF Rx Instructions: for 3 days (rx filled 03/24/22) ondansetron HCl 4 mg tablet 4 mg PO Q6H PRN (Reason: Nausea And Vomiting) 0RF acetazolamide 250 mg tablet 125 mg PO EVERY OTHER DAY 0RF fluticasone propionate 50 mcg/actuation spray,suspension 1 spray INTRANASAL DAILY 0RF cholecalciferol (vitamin D3) [Vitamin D3] 25 mcg (1,000 unit) Tablet 25 mcg PO DAILY 0RF Lantus Solostar U-100 Insulin 100 unit/mL (3 mL) insulin pen 80 unit SUBCUT BEDTIME 0RF Vitamin Plus Low Iron 27 mg iron- 1 mg tablet 1 tab PO DAILY 0RF [place] 0.7 % Drops 1 drp OPHTHALMIC (EYE) DAILY PRN (Reason: Allergy Symptoms) 0RF Discontinued meloxicam 7.5 mg tablet 7.5 mg PO BID PRN (Reason: Pain) 0RF Discharge Orders: Discharge Order (Routine); Ordered 03/27/22 Ordered By: Rigoberto Andersen Referrals: Jn Torres MD [Primary Care Provider] - 04/01/22 10:30 am WOUND CARE CLINIC, [Staff Physician] - 04/01/22 8:45 am Discharge Diet: Cardiac Discharge Activity: Increase activity as tolerated Patient Instructions: Cellulitis, Cephalexin (By mouth), Doxycycline (By mouth), Acute Wound Care (GEN) Activity Restrictions/Additional Instructions: Take all medicine as prescribed Continue wound care instructions per wound care Keep legs elevated as much as possible Home health on discharge for wound care Discharge Attestations Time Spent in Discharge Care*: greater than 30 min Quality Metrics Clinical Quality Measures [ No reported AMI, CVA or VTE this stay] Coding Level of Care Code Acute Chg FW DC note Diagnoses Cellulitis L03.119 Laterality: unspecified laterality Site of cellulitis: extremity Site of cellulitis of extremity: lower extremity Venous stasis ulcer of left lower extremity I83.029; L97.929 Diabetes mellitus E11.9 Morbid obesity E66.01
[2022-03-27] MEDS: enoxaparin 40 mg/0.4 mL Syringe SUBCUT (13:54)
[2022-03-27] MEDS: cefTRIAXone 1,000 MG in sodium chloride 0.9% (plus) 50 ML 100 MG IV (13:54)
[2022-03-27 20:56] LABS: Glucose Point of Care 267 mg/dL (70-110)
[2022-03-27 20:56] LABS: Glucose Point of Care 281 mg/dL (70-110)
[2022-03-27 20:56] LABS: Glucose Point of Care 192 mg/dL (70-110)
== END 2022-03-27 18:02 | disposition home health service (06) | DRG 603 ==
PROVIDERS: Admitting Provider Internal Medicine; PCP Family Medicine; Visit Provider Internal Medicine
DX: L03.116 Cellulitis of left lower limb (principal); K50.90 Crohn's disease, unspecified, without complications; Z68.43 Body mass index [BMI] 50.0-59.9, adult; E11.9 Type 2 diabetes mellitus without complications; I10 Essential (primary) hypertension; F17.210 Nicotine dependence, cigarettes, uncomplicated; E66.01 Morbid (severe) obesity due to excess calories; I87.8 Other specified disorders of veins; Z79.82 Long term (current) use of aspirin; Z79.4 Long term (current) use of insulin
CPT/HCPCS: 36415; 36416; 73600; 73620; 80048; 80053; 80202; 82274; 82607; 82728; 82746; 82962; 83036; 83540; 83550; 84443; 85025; 87040; 93970; 94640; 96372; 97597; 97598; 99212; J0696; J1650; J1815 ×2; J3370

== ENCOUNTER → 2022-04-01 08:17 | Outpatient (BNVA) | payer MEDICAID, SELFPAY | PROVIDERS: PCP Family Medicine; Visit Provider Emergency Medicine | DX: E11.621 Type 2 diabetes mellitus with foot ulcer (principal); L97.821 Non-pressure chronic ulcer of other part of left lower leg limited to breakdown of skin; L97.811 Non-pressure chronic ulcer of other part of right lower leg limited to breakdown of skin; F17.210 Nicotine dependence, cigarettes, uncomplicated | CPT/HCPCS: 11042; 11045 ==

== ENCOUNTER → 2022-04-08 14:31 | Outpatient (BNVA) | payer MEDICAID, SELFPAY | PROVIDERS: PCP Family Medicine; Visit Provider Emergency Medicine | DX: E11.622 Type 2 diabetes mellitus with other skin ulcer (principal); L97.821 Non-pressure chronic ulcer of other part of left lower leg limited to breakdown of skin; I96 Gangrene, not elsewhere classified; L97.811 Non-pressure chronic ulcer of other part of right lower leg limited to breakdown of skin | CPT/HCPCS: 11042 ==

== ENCOUNTER → 2022-04-15 08:36 | Outpatient (BNVA) | payer MEDICAID, SELFPAY | PROVIDERS: PCP Family Medicine; Visit Provider Emergency Medicine | DX: E11.622 Type 2 diabetes mellitus with other skin ulcer (principal); I87.2 Venous insufficiency (chronic) (peripheral); I96 Gangrene, not elsewhere classified; L97.821 Non-pressure chronic ulcer of other part of left lower leg limited to breakdown of skin | CPT/HCPCS: 11042 ==

== ENCOUNTER → 2022-04-22 08:48 | Outpatient (BNVA) | payer MEDICAID, SELFPAY | PROVIDERS: PCP Family Medicine; Visit Provider Nurse Practitioner Family | DX: E11.622 Type 2 diabetes mellitus with other skin ulcer (principal); L97.821 Non-pressure chronic ulcer of other part of left lower leg limited to breakdown of skin; I96 Gangrene, not elsewhere classified; I87.2 Venous insufficiency (chronic) (peripheral) | CPT/HCPCS: 11042 ==

== ENCOUNTER → 2022-04-29 08:50 | Outpatient (BNVA) | payer MEDICAID, SELFPAY | PROVIDERS: PCP Family Medicine; Visit Provider Nurse Practitioner Family | DX: E11.621 Type 2 diabetes mellitus with foot ulcer (principal); L97.821 Non-pressure chronic ulcer of other part of left lower leg limited to breakdown of skin; I96 Gangrene, not elsewhere classified; I87.2 Venous insufficiency (chronic) (peripheral); L97.811 Non-pressure chronic ulcer of other part of right lower leg limited to breakdown of skin | CPT/HCPCS: 11042 ==

== ENCOUNTER → 2022-05-06 09:11 | Outpatient (BNVA) | payer MEDICAID, SELFPAY | PROVIDERS: PCP Family Medicine; Visit Provider Nurse Practitioner Family | DX: E11.622 Type 2 diabetes mellitus with other skin ulcer (principal); L97.821 Non-pressure chronic ulcer of other part of left lower leg limited to breakdown of skin; I96 Gangrene, not elsewhere classified; I87.2 Venous insufficiency (chronic) (peripheral); L97.811 Non-pressure chronic ulcer of other part of right lower leg limited to breakdown of skin | CPT/HCPCS: 11042 ==

== ENCOUNTER → 2022-05-13 09:11 | Outpatient (BNVA) | payer MEDICAID, SELFPAY | PROVIDERS: PCP Family Medicine; Visit Provider Nurse Practitioner Family | DX: E11.621 Type 2 diabetes mellitus with foot ulcer (principal); L97.821 Non-pressure chronic ulcer of other part of left lower leg limited to breakdown of skin; I96 Gangrene, not elsewhere classified | CPT/HCPCS: 11042 ==

== ENCOUNTER → 2022-06-10 08:13 | Outpatient (BNVA) | payer MEDICAID, SELFPAY | PROVIDERS: PCP Family Medicine; Visit Provider Nurse Practitioner Family | DX: E11.622 Type 2 diabetes mellitus with other skin ulcer (principal); L97.821 Non-pressure chronic ulcer of other part of left lower leg limited to breakdown of skin; I96 Gangrene, not elsewhere classified; I87.2 Venous insufficiency (chronic) (peripheral); L97.812 Non-pressure chronic ulcer of other part of right lower leg with fat layer exposed | CPT/HCPCS: 11042; A6212 ==

== ENCOUNTER 2022-06-10 10:16 | Emergency (ER) | payer MEDICAID, SELFPAY ==
[2022-06-10] VITALS (7 sets, daily range): BP systolic 105–173; BP diastolic 55–102; PULSE 73–93; RESP 18–19; TEMP 36.8; O2SAT 91–97; BMI 54.8
--- NOTE | 2022-06-10 10:17 | CT_ITS ---
WS: [id number] CTA OF THE CHEST WITH PULMONARY EMBOLISM PROTOCOL TECHNIQUE: High-resolution contrast enhanced CTA of the chest with coronal and sagittal reformatted i mages with pulmonary embolism protocol. MIP images are also reviewed. CLINICAL INFORMATION: tachycardia/dyspnea/post covid COMPARISON: None. DLP: 567.[address] scans at [facility] use at least one of these dose optimization techniques: automated e xposure control; mA and/or kV adjustment per patient size (includes targeted exams where dose is matc hed to clinical indication); or iterative reconstruction. FINDINGS: Suboptimal study due to tachycardia Proximal main pulmonary arteries are normal. Poor filling of the mainly right-sided segmental and sub segmental pulmonary arteries. Small filling defect in the RIGHT middle lobe segmental pulmonary arter y. Findings are suspicious for pulmonary emboli. Normal caliber thoracic aorta. Aortic calcification.Shallow inspiration. Lungs are well aerated. Bibasilar atelectasis. Small noncal cified nodule LEFT lower lobe measuring 5 mm. Mild thoracic curve. No acute compression fractures. 4.2 cm LEFT adrenal adenoma. Prior cholecystecto my. Fatty atrophy of the pancreas. CT/CT angio chest PE protcl [id number] IMPRESSION: Suboptimal study due to tachycardia 1. Poor filling of the RIGHT segmental and subsegmental pulmonary arteries marleny picious for pulmonary embolus. Small filling defect in the RIGHT middle lobe se gmental pulmonary artery suspicious for embolus. 2. Shallow inspiration. No acute pulmonary infiltrates. Bibasilar atelectasis. 3. 5 mm noncalcified nodule LEFT lower lobe. Recommend 12 month follow-up. 4. 4.2 cm LEFT adrenal adenoma. Notified Yony Castillo DO at 06/10/2022 11:36 AM.
--- NOTE | 2022-06-10 10:18 | ECG_ITS ---
[facility] Test Date: 2022-06-10 Pat Name: Evangelina Velázquez Department: Room: Gender: Female Lens Inspector: : 1965 Requested By: Yony Sinclair Order Number: [id number] Tanika MD: Colette Garcia M.D. Measurements Intervals [place] Rate: 92 P: 50 MT: 224 QRS: 23 QRSD: 76 T: 39 QT: 351 QTc: 435 Interpretive Statements SINUS RHYTHM WITH FIRST DEGREE AV BLOCK LOW QRS VOLTAGE IN PRECORDIAL LEADS [QRS DEFLECTION < 1.0 mV IN CHEST LEADS] No previous ECG available for comparison Poor R wave progression Electronically Signed On 06-10-2022 20:51:50 CDT by Colette Garcia M.D. [id number]
--- NOTE | 2022-06-10 10:48 | W.ED.GENADLT ---
HPI - General Adult General: Chief complaint: General Medical Stated complaint: High heart rate wound care sent Time Seen by Provider: 06/10/22 10:17 Source: patient Mode of arrival: ambulatory History of Present Illness: 56-year-old female arrives to the emergency room from wound care clinic where she was noted to be dyspneic and mildly tachycardic with minimal exertion. She is 12 to 16 days post positive test for COVID. Onset (ago): hour(s) Location: chest Severity: moderate Relieving factors: rest Exacerbating factors: movement Associated symptoms: Reports dyspnea, short of breath and weakness; Deny chest pain, confusion, cough, diaphoresis, decreased appetite, fevers/chills, headache(s), malaise, nausea, rash, palpitations, seizures, syncope or vomiting Treatments prior to arrival: none Review of Systems Const: Denies: fever(s), chills, body aches, fatigue, malaise or diaphoresis ENMT: Denies: throat pain, ear or mastoid pain, nasal discharge or nasal congestion Card: Denies: chest pain, palpitations or syncope Resp: Reports: dyspnea; Denies: productive cough, non-productive cough or wheezing GI: Denies: abdominal pain, nausea or vomiting : Denies: flank pain, difficulty voiding, dysuria, urinary frequency or urinary urgency Skin/Breast: Denies: rash Neuro: Denies: headache(s) or confusion PFSH ED PFSH: Medical History Arthritis Crohn's disease Diabetes mellitus HTN (hypertension) IBS (irritable bowel syndrome) Migraine Peripheral arterial occlusive disease Surgical wound dehiscence Venous insufficiency (chronic) (peripheral) Surgical History History of dental surgery S/P cataract extraction S/P cholecystectomy Family History Father Diabetes Heart disease Stroke Other Chronic kidney disease (CKD) Hypertension Seizures Social History Smoking and tobacco status: current every day smoker cigarettes Packs smoked per day: 10 Years cigarettes smoked: 15 Alcohol intake: never Physical Exam Const: GENERAL APPEARANCE: cooperative and comfortable NUTRITIONAL APPEARANCE: obese morbidly obese ORIENTATION/CONSCIOUSNESS: Yes awake, Yes oriented to person, Yes oriented to place and Yes oriented to time HENMT: COMMON NORMALS: normocephalic, atraumatic and hearing grossly normal bilaterally HEAD & SCALP: normocephalic and atraumatic Neck/C-Spine: COMMON NORMALS: no JVD Resp: COMMON NORMALS: normal respiratory effort, No retractions, No use of accessory muscles and clear to auscultation bilaterally AUSCULTATION: clear to auscultation bilaterally Cardio: COMMON NORMALS: no JVD, regular rate, regular rhythm and No murmurs present (Cardio) RATE: regular rate RHYTHM: regular rhythm GI: COMMON NORMALS: Soft to palpation and No hepatosplenomegaly present AUSCULTATION: Yes normoactive bowel sounds PALPATION: Yes Soft to palpation, No Tenderness to palpation present (GI), No Guarding due to palpation present (GI) and Yes No hepatosplenomegaly present Extremity: COMMON NORMALS: normal to inspection, capillary refill normal, no clubbing, cyanosis or edema, no calf tenderness and no pedal edema Neuro: SENSORIUM/ORIENTATION: Yes oriented to person, Yes oriented to place and Yes oriented to time Skin: COMMON NORMALS: no rashes or lesions noted GENERAL SKIN EXAM: no rashes or lesions noted Course Vital Signs: Vital signs: Vital Signs Temperature 98.2 F 06/10/22 10:21 Pulse Rate 73 06/10/22 17:08 Respiratory Rate 18 06/10/22 12:12 Blood Pressure 105/68 06/10/22 16:00 Pulse Oximetry 93 06/10/22 17:08 [facility] - General Adult Medical Decision Making No right heart strain on the echocardiogram. Home oxygen testing patient does not desaturate with ambulation. She is given Lovenox here in emergency room started on Eliquis discharge home follow-up with primary care return if is further problems. Discussed findings with her. Medical Records I reviewed the patient's medical records. Lab Data I reviewed the patient's lab results. : 06/10/22 10:49 06/10/22 10:49 Radiology Impressions Chest CTA 06/10/22 10:17 IMPRESSION: Suboptimal study due to tachycardia 1. Poor filling of the RIGHT segmental and subsegmental pulmonary arteries suspicious for pulmonary embolus. Small filling defect in the RIGHT middle lobe segmental pulmonary artery suspicious for embolus. 2. Shallow inspiration. No acute pulmonary infiltrates. Bibasilar atelectasis. 3. 5 mm noncalcified nodule LEFT lower lobe. Recommend 12 month follow-up. 4. 4.2 cm LEFT adrenal adenoma. Notified Yony Castillo DO at 06/10/2022 11:36 AM. Laboratory Results WBC 7.6 10^3/uL (4.0-10.0) 06/10/22 10:49 RBC 5.28 10^6/uL (4.1-5.3) 06/10/22 10:49 Hgb 14.2 g/dL (11.5-15.3) 06/10/22 10:49 Hct 46.4 % (37.0-47.0) 06/10/22 10:49 MCV 87.9 fl (81-99) 06/10/22 10:49 MCH 26.9 pg (28.0-34.0) L 06/10/22 10:49 MCHC 30.6 g/dL (30.0-36.0) 06/10/22 10:49 RDW 15.6 % (12.1-15.1) H 06/10/22 10:49 Plt Count 259 10^3/cmm (130-400) 06/10/22 10:49 MPV 10.0 fL (7.4-10.4) 06/10/22 10:49 Neut % (Auto) 64.4 % 06/10/22 10:49 Lymph % (Auto) 20.9 % 06/10/22 10:49 Wilkin % (Auto) 6.7 % 06/10/22 10:49 Eos % (Auto) 5.6 % 06/10/22 10:49 Baso % (Auto) 2.0 % 06/10/22 10:49 Neut # (Auto) 4.87 10^3/uL (1.8-7.7) 06/10/22 10:49 Lymph # (Auto) 1.6 10^3/uL (0.8-4.8) 06/10/22 10:49 Wilkin # (Auto) 0.5 10^3/uL (0.2-0.9) 06/10/22 10:49 Eos # (Auto) 0.4 10^3/uL (0.0-0.8) 06/10/22 10:49 Baso # (Auto) 0.2 10^3/uL (0.0-0.1) H 06/10/22 10:49 Nucleated RBC % (auto) 0 % 06/10/22 10:49 Nucleated RBCs # 0.0 /100WBC 06/10/22 10:49 Sodium 139 mmol/L (136-145) 06/10/22 10:49 Potassium 4.2 mmol/L (3.5-5.1) 06/10/22 10:49 Chloride 105 mmol/L (98-107) 06/10/22 10:49 Carbon Dioxide 25 mmol/L (22-29) 06/10/22 10:49 Anion Gap 13.2 (5-19) 06/10/22 10:49 BUN 17 mg/dL (6-20) 06/10/22 10:49 Creatinine 0.8 mg/dL (0.5-0.9) 06/10/22 10:49 GFR Calculation 73.7 mL/min (90-130) L 06/10/22 10:49 Glucose 166 mg/dL (65-115) H 06/10/22 10:49 Calculated Osmolality 293 mOsm/kg (285-295) 06/10/22 10:49 Calcium 8.7 mg/dL (8.5-10.5) 06/10/22 10:49 Total Bilirubin 0.3 mg/dL (0.15-1.2) 06/10/22 10:49 AST 15 U/L (0-32) 06/10/22 10:49 ALT 17 U/L (0-33) 06/10/22 10:49 Alkaline Phosphatase 117 IU/L (35-105) H 06/10/22 10:49 Troponin T Baseline 17 ng/L (0-10) H 06/10/22 10:49 Troponin T 120 Minute 16.11 ng/L (0-10) H 06/10/22 12:50 Delta Troponin T -0.89 ABS# (0-10) L 06/10/22 12:50 Total Protein 6.8 g/dL (6.6-8.7) 06/10/22 10:49 Albumin 3.8 g/dL (3.5-5.2) 06/10/22 10:49 Globulin 3.0 g/dL (1.3-4.6) 06/10/22 10:49 Discharge Plan Discharge Patient Disposition: Home Clinical Impression: Pulmonary embolism Condition: Stable Prescriptions: New Donnanidia DVT-PE Treat 30D Start 5 mg (74 tabs) tablets,dose pack See Rx Instructions .ROUTE .COMPLEX Qty: 74 0RF Rx Instructions: orally per package directions No Action fluticasone propion-salmeterol [Advair Diskus] 250-50 mcg/dose blister with device 1 inh inhalation BID 0RF montelukast 10 mg tablet 10 mg PO BEDTIME 0RF omeprazole 20 mg capsule,delayed release(DR/EC) 20 mg PO BID 0RF cetirizine 10 mg tablet 10 mg PO QAM 0RF lisinopril 20 mg tablet 20 mg PO QAM 0RF albuterol sulfate [ProAir HFA] 90 mcg/actuation HFA aerosol inhaler 2 puff inhalation Q4H PRN (Reason: Shortness Of Breath) 0RF aspirin 81 mg Tablet,Delayed Release (Dr/Ec) 81 mg PO BID 0RF insulin lispro [Humalog U-100 Insulin] 100 unit/mL Solution 27 unit SUBCUT TID Qty: 1 0RF furosemide 40 mg tablet 40 mg PO BID Qty: 7 0RF silver sulfadiazine 1 % cream 1 applic TOPICAL BID 0RF ondansetron HCl 4 mg tablet 4 mg PO Q6H PRN (Reason: Nausea And Vomiting) 0RF acetazolamide 250 mg tablet 125 mg PO EVERY OTHER DAY 0RF fluticasone propionate 50 mcg/actuation spray,suspension 1 spray INTRANASAL DAILY 0RF cholecalciferol (vitamin D3) [Vitamin D3] 25 mcg (1,000 unit) Tablet 25 mcg PO DAILY 0RF insulin glargine [Lantus Solostar U-100 Insulin] 100 unit/mL (3 mL) insulin pen 80 unit SUBCUT BEDTIME 0RF Vitamin Plus Low Iron 27 mg iron- 1 mg tablet 1 tab PO DAILY 0RF olopatadine 0.7 % Drops 1 drp OPHTHALMIC (EYE) DAILY PRN (Reason: Allergy Symptoms) 0RF Discharge Orders: Discharge ED (Routine); Ordered 06/10/22 Ordered By: Yony Castillo Referrals: Jn Torres MD [Primary Care Provider] - Discharge Diet: Usual diet Discharge Activity: Increase activity as tolerated Activity Restrictions/Additional Instructions: Follow-up with your primary care doctor within the next week. If you have significant worsening or shortness of breath return to the emergency room Coding Level of Care Code ED Service Coordinator [facility] Exam Comprehensive
[2022-06-10 11:00] LABS: Basophils # 0.2 10^3/uL (0.0-0.1); Eosinophils # 0.4 10^3/uL (0.0-0.8); Eosinophils % 5.6 %; Hematocrit 46.4 % (37.0-47.0); Hemoglobin 14.2 g/dL (11.5-15.3); Lymphocytes # 1.6 10^3/uL (0.8-4.8); Lymphocytes % 20.9 %; Mean Corpuscular HGB Conc 30.6 g/dL (30.0-36.0); Mean Corpuscular Hemoglobin 26.9 pg (28.0-34.0); Mean Corpuscular Volume 87.9 fl (81-99); Monocytes # 0.5 10^3/uL (0.2-0.9); Monocytes % 6.7 %; Neutrophils # 4.87 10^3/uL (1.8-7.7); Neutrophils % 64.4 %; Nucleated Red Blood Cells % 0 %; Platelet Count 259 10^3/cmm (130-400); Red Blood Count 5.28 10^6/uL (4.1-5.3); Red Cell Distribution Width 15.6 % (12.1-15.1); White Blood Count 7.6 10^3/uL (4.0-10.0)
[2022-06-10] MEDS: iohexol 350 mg/mL 100 mL Btl IV (11:12)
[2022-06-10 11:30] LABS: Alanine Aminotransferase 17 U/L (0-33); Albumin Level 3.8 g/dL (3.5-5.2); Alkaline Phosphatase 117 IU/L (35-105); Anion Gap 13.2 (5-19); Aspartate Amino Transferase 15 U/L (0-32); Blood Urea Nitrogen 17 mg/dL (6-20); Calcium 8.7 mg/dL (8.5-10.5); Carbon Dioxide 25 mmol/L (22-29); Chloride 105 mmol/L (98-107); Glomerular Filtration Rate 73.7 mL/min (90-130); Glucose 166 mg/dL (65-115); Osmolality Calculated 293 mOsm/kg (285-295); Potassium 4.2 mmol/L (3.5-5.1); Sodium 139 mmol/L (136-145); Total Bilirubin 0.3 mg/dL (0.15-1.2); Total Protein 6.8 g/dL (6.6-8.7)
[2022-06-10 11:31] LABS: Troponin(5th) Baseline 17 ng/L (0-10)
--- NOTE | 2022-06-10 11:57 | USCV_ITS ---
Evangelina Velázquez Age: 56 Gender: F : 1965 Exam Date: 06/10/2022 12:28 Ordering Phys: Yony Csatillo DO Technologist: ARJUN Exam Location: [facility] [place] Indication: PE, EVAL FOR RIGHT HEART STRAIN BP: 173 / 85 HR: 79 Rhythm: Sinus Technical Quality: Suboptimal MEASUREMENTS (Male / Female) Normal Values 2D ECHO LVOT Diameter 2.0 cm LV Ejection Fraction MOD 2C 19.5 % LV Ejection Fraction 2C AL 19.0 % LA Diameter 4.0 cm LA Width 3.7 cm LA Height 5.4 cm RA Width 3.7 cm RA Height 4.5 cm Aorta at Sinotubular Diameter 2.3 cm IVC Diameter 1.5 cm M-MODE Aortic Annulus Diameter 3.1 cm LA Ao Ratio MM 1.2 MV E Point Septal Separation 1.0 cm DOPPLER AV Peak Velocity 170.0 cm/s LVOT Peak Velocity 89.0 cm/s AV Area Cont Eq vti 1.3 cm squared AV Area Cont Eq pk 1.7 cm squared MV Peak Velocity 139.0 cm/s MV Area PHT 5.0 cm squared Mitral E to A Ratio 0.9 MV E' Velocity 48.5 cm/s Mitral E to MV E' Ratio 9.1 Mitral E to LV E' Lateral Ratio 9.1 Mitral E to LV E' Septal Ratio 9.2 TV Peak E Velocity 85.0 cm/s Right Atrial Pressure 3.0 mmHg PV Peak Velocity 92.0 cm/s RV Acceleration Time 0.1 s RV Ejection Time 0.3 s RV AcT/ET 0.3 FINDINGS Left Ventricle Technically limited quality echocardiogram because of poor ultrasonic windows. LV systolic function is normal with EF of 50 to 55%. No regional wall motion abnormalities are seen. Right Ventricle Grossly RV is normal in size and function. Right Atrium Normal in size Left Atrium Normal in size Mitral Valve Grossly normal. Trace mitral regurgitation Aortic Valve Not well visualized. No significant aortic stenosis or regurgitation Tricuspid Valve Grossly normal Pulmonic Valve Not visualized Pericardium Normal Aorta Normal in size IVC CONCLUSIONS Technically limited quality echocardiogram because of poor ultrasonic windows. LV systolic function is normal with EF of 50 to 55%. RV is grossly normal in size and function. Valvular structures are not well visualized however no gross abnormalities. No comparison studies are available Marlo Huang MD (Electronically Signed) Final Date: 10 June 2022 16:43 S
[2022-06-10] MEDS: enoxaparin 150 mg/mL Syringe 140 MG SUBCUT (12:09)
--- NOTE | 2022-06-10 12:18 | ECG_ITS ---
[facility] Test Date: 2022-06-10 Pat Name: Evangelina Velázquez Department: Room: Gender: Female Sliver Handler: : 1965 Requested By: Yony Sinclair Order Number: [id number] Tanika MD: Colette Garcia M.D. Measurements Intervals [place] Rate: 82 P: 54 NC: 231 QRS: 49 QRSD: 83 T: 50 QT: 361 QTc: 424 Interpretive Statements SINUS RHYTHM WITH FIRST DEGREE AV BLOCK LOW QRS VOLTAGE IN PRECORDIAL LEADS [QRS DEFLECTION < 1.0 mV IN CHEST LEADS] ANTEROSEPTAL MYOCARDIAL INFARCTION , PROBABLY OLD [40+ ms Q WAVE IN V1-V4] Compared to ECG 06/10/2022 10:33:37 Myocardial infarct finding now present Electronically Signed On 06-10-2022 21:04:21 CDT by Colette Garcia M.D. [id number]
[2022-06-10] MEDS: perflutren protein-a microsphr 0.22 mg/mL SDV 3 mL IV (12:53)
[2022-06-10 13:29] LABS: Troponin 5 2HR 16.11 ng/L (0-10); Troponin 5 2HR Delta -0.89 ABS# (0-10)
--- NOTE | 2022-06-10 16:18 | ECG_ITS ---
[facility] Test Date: 2022-06-10 Pat Name: Evangelina Velázquez Department: Room: Gender: Female Smearer: : 1965 Requested By: Yony Sinclair Order Number: [id number] Reading MD: Colette Garcia M.D. Measurements Intervals [place] Rate: 66 P: 46 MD: 199 QRS: 41 QRSD: 75 T: 47 QT: 390 QTc: 411 Interpretive Statements SINUS RHYTHM LOW QRS VOLTAGE IN PRECORDIAL LEADS [QRS DEFLECTION < 1.0 mV IN CHEST LEADS] Compared to ECG 06/10/2022 12:21:25 First degree AV block no longer present Myocardial infarct finding no longer present Electronically Signed On 06-10-2022 21:06:57 CDT by Colette Garcia M.D. [id number]
== END 2022-06-10 17:10 | disposition home or self-care (01) ==
PROVIDERS: Emergency Provider Family Medicine; PCP Family Medicine
DX: I26.99 Other pulmonary embolism without acute cor pulmonale (principal); Z79.82 Long term (current) use of aspirin; Z79.4 Long term (current) use of insulin; E11.9 Type 2 diabetes mellitus without complications; I10 Essential (primary) hypertension; F17.210 Nicotine dependence, cigarettes, uncomplicated
CPT/HCPCS: 71275; 80053; 84484; 85025; 93005; 96372; 96374; 99285; C8929; J1650; Q9956; Q9967

== ENCOUNTER → 2022-06-17 09:05 | Outpatient (BNVA) | payer MEDICAID, SELFPAY | PROVIDERS: PCP Family Medicine; Visit Provider Nurse Practitioner Family | DX: E11.622 Type 2 diabetes mellitus with other skin ulcer (principal); I87.2 Venous insufficiency (chronic) (peripheral); L97.811 Non-pressure chronic ulcer of other part of right lower leg limited to breakdown of skin; L97.812 Non-pressure chronic ulcer of other part of right lower leg with fat layer exposed | CPT/HCPCS: 11042 ==

== ENCOUNTER → 2022-06-24 08:43 | Outpatient (BNVA) | payer MEDICAID, SELFPAY | PROVIDERS: PCP Family Medicine; Visit Provider Nurse Practitioner Family | DX: E11.621 Type 2 diabetes mellitus with foot ulcer (principal); I87.2 Venous insufficiency (chronic) (peripheral); L97.821 Non-pressure chronic ulcer of other part of left lower leg limited to breakdown of skin; I96 Gangrene, not elsewhere classified; L97.822 Non-pressure chronic ulcer of other part of left lower leg with fat layer exposed | CPT/HCPCS: 11042 ==

== ENCOUNTER → 2022-07-03 13:49 | Outpatient (BNVA) | payer MEDICAID, SELFPAY | PROVIDERS: PCP Family Medicine; Visit Provider Nurse Practitioner Family | DX: E11.621 Type 2 diabetes mellitus with foot ulcer (principal); I87.2 Venous insufficiency (chronic) (peripheral); L97.811 Non-pressure chronic ulcer of other part of right lower leg limited to breakdown of skin; L97.812 Non-pressure chronic ulcer of other part of right lower leg with fat layer exposed | CPT/HCPCS: 11042; A6212 ==

== ENCOUNTER → 2022-07-08 14:08 | Outpatient (BNVA) | payer MEDICAID, SELFPAY | PROVIDERS: PCP Family Medicine; Visit Provider Nurse Practitioner Family | DX: L97.812 Non-pressure chronic ulcer of other part of right lower leg with fat layer exposed (principal); L97.822 Non-pressure chronic ulcer of other part of left lower leg with fat layer exposed; E11.621 Type 2 diabetes mellitus with foot ulcer; I87.2 Venous insufficiency (chronic) (peripheral) | CPT/HCPCS: 11042 ==

== ENCOUNTER → 2022-07-22 09:34 | Outpatient (BNVA) | payer MEDICAID, SELFPAY | PROVIDERS: PCP Family Medicine; Visit Provider Thoracic Surgery (Cardiothoracic Vascular Surgery) | DX: E11.622 Type 2 diabetes mellitus with other skin ulcer (principal); L97.911 Non-pressure chronic ulcer of unspecified part of right lower leg limited to breakdown of skin; I87.2 Venous insufficiency (chronic) (peripheral); I96 Gangrene, not elsewhere classified | CPT/HCPCS: 97597 ==

== ENCOUNTER → 2024-04-15 09:09 | Outpatient (BNVA) | payer MEDICAID, SELFPAY | PROVIDERS: PCP Family Medicine; Visit Provider Thoracic Surgery (Cardiothoracic Vascular Surgery) | DX: I89.0 Lymphedema, not elsewhere classified (principal) | CPT/HCPCS: 99213 ==

== ENCOUNTER → 2025-01-23 10:38 | Outpatient (BNVA) | payer MEDICAID, SELFPAY | PROVIDERS: PCP Family Medicine; Visit Provider Student in an Organized Health Care Education/Training Program | DX: R13.10 Dysphagia, unspecified (principal) | CPT/HCPCS: 99204 ==